=== PATIENT | male | born 1940 | race Caucasian/White ===

== ENCOUNTER 2017-11-12 08:29 | Inpatient (IN) ==
[2017-11-12] MEDS ORDERED: IPRATROPIUM/ALBUTEROL 3 ML AMPUL.NEB NEB ONE ×2 (08:47→11:23)
--- NOTE | 2017-11-12 08:51 | Emergency Department Note ---
SOB HPI - General Chief Complaint: Shortness of Breath/Dyspnea Stated Complaint: Shortness of breath Time Seen by Provider: 11/12/17 08:42 Source: patient Mode of arrival: ambulatory Limitations: no limitations - History of Present Illness Mr. Merritt is a resident of [facility] and he was found to be significantly more short of breath this morning and transferred to the emergency room because of this via ambulance. He reports a 3-4 day history of increasing shortness of breath with some worsening cough. He is also been wheezing and producing white gooey phlegm. He denies chest pains or palpitations. He has had a few chills but no fevers or night sweats. He has a previous history of pneumonia. He denies COPD or asthma. REVIEW OF SYSTEMS: No chest pains or palpitations. Some nausea. Admits to weakness. As well as some dizziness last few days. Denies anxiety and depression. - Related Data Home Medications Medication Instructions Recorded Confirmed Allopurinol [Zylopriim] 300 mg PO DAILY 04/09/15 04/09/15 Aspirin [Lite Coat Aspirin] 325 mg PO PRN PRN 04/09/15 04/09/15 Finasteride [Proscar] 5 mg PO DAILY 04/09/15 04/09/15 Insulin Glargine,Hum.rec.anlog 100 unit SQ PRN PRN 04/09/15 04/09/15 [Lantus Solostar] Levothyroxine [Synthroid] 150 mcg PO DAILY 04/09/15 04/09/15 Nitroglycerin [Nitrostat] 0.4 mg SL Q5M PRN 04/09/15 04/09/15 [place]-3 Fatty Acids/Fish Oil [Fish 1 capsule PO DAILY 04/09/15 04/09/15 Oil 1,000 mg Softgel] Tamsulosin [Flomax] 0.4 mg PO ONCE 04/09/15 04/09/15 Torsemide [Demadex] 20 mg PO DAILY 04/09/15 04/09/15 Vitamin D3 1,000 unit PO DAILY 04/09/15 04/09/15 amLODIPine [Norvasc] 5 mg PO DAILY 04/09/15 04/09/15 glipiZIDE [Glucotrol] 10 mg PO BID 04/09/15 04/09/15 Previous Rx's Medication Instructions Recorded Triamcinolone Acetonide 1 applic TP TID PRN #30 gm 04/09/15 Allergies Allergy/AdvReac Type Severity Reaction Status Date / Time No Known Drug Allergies Allergy Verified 04/09/15 11:52 Past Medical History - Past Medical History Medical history: Reports: CVA, DM, hypertension, myocardial infarction (5), other (pneumonia. DENIES asthma.) Psychiatric history: Denies: anxiety, depression - Social History smoking status: Current every day smoker Alcohol use: Reports: None Drug use: Reports: none. Denies: marijuana Physical Exam Limitations: no limitations General appearance: alert, in distress (With 2-3 word dyspnea.) Head: atraumatic, normocephalic Eye: Present: EOMI ENT: mucous membranes dry Respiratory: Present: respiratory distress (2-3 word dyspnea with a rate of 33 sometimes mildly higher.), wheezes (With crackles throughout all lung sharma.), accessory muscle use, prolonged expiratory phase. Absent: stridor Cardiovascular: Present: regular rate, normal rhythm. Absent: systolic murmur, diastolic murmur Abdominal: Present: soft. Absent: distention, tenderness, guarding, rebound, rigidity, organomegaly, mass Extremities: Absent: pedal edema, pretibial edema, calf tenderness Neurological: Present: alert Psychiatric: Present: flat affect Skin: Present: warm, dry Course Vital Signs Temperature 99.2 F H 11/12/17 08:29 Pulse Rate 110 H 11/12/17 08:29 Respiratory Rate 24 H 11/12/17 08:29 Blood Pressure 125/66 11/12/17 08:29 Pulse Oximetry (%) 93 11/12/17 08:29 Temperature 99.2 F H 11/12/17 08:29 Pulse Rate 103 H 11/12/17 08:46 Respiratory Rate 32 H 11/12/17 08:46 Blood Pressure 118/58 11/12/17 08:46 Pulse Oximetry (%) 93 11/12/17 08:46 Shortness of Breath/Dyspnea - [facility] Narrative Medical decision making narrative: Significant respiratory distress. Was just discharged from the ER at [facility] this morning and sent back to the ER today here. He is due for dialysis today. He has significant anemia. He has significant crackles throughout all lung sharma. Has a coronary artery disease history with 5 MIs he reports. Significant workup initiated. Patient will be followed by next shift physician Dr. nichols. - Lab Data Result diagrams: 11/12/17 08:40 11/12/17 08:40 Disposition Pt seen by DELIVERY COORDINATOR/PA only: No Disposition: Still a Patient Referrals: Shen Elias MD [Primary Care Provider] -
[2017-11-12 09:31] LABS: Basophils # (Auto) 0 K/mcL (0.0-0.3); Basophils % (Auto) 0.2 % (0.0-2.0); Eosinophils # (Auto) 0.1 K/mcL (0.0-0.7); Eosinophils % (Auto) 0.4 % (0.0-7.0); Granulocytes % (Auto) 81.5 % (38.0-78.0); Lymphocytes % (Auto) 8.2 % (15.5-49.0); Mean Cell Volume 95.6 fL (80.0-100.0); Mean Corpuscular HGB Conc 33.3 g/dL (31.0-36.0); Mean Corpuscular Hemoglobin 31.8 pg (26.0-34.0); Monocytes # (Auto) 1.2 K/mcL (0.1-0.9); Monocytes % (Auto) 9.7 % (1.0-12.0); Platelet Count 182 K/mcL (140-440); RBC 2.63 M/mcL (4.50-5.90); Red Cell Distribution Width 17.2 % (11.5-14.5)
[2017-11-12 09:52] LABS: ALT/SGPT 15 U/l (0-40); Albumin 3.1 gm/dL (3.2-5.2); Alkaline Phosphatase 75 U/L (39-117); Blood Urea Nitrogen 30 mg/dl (8-23)
--- NOTE | 2017-11-12 10:16 | XRay Report ---
CLINICAL INFORMATION: Dyspnea COMPARISON: None. FINDINGS: Right IJ double-lumen catheter tip overlies the SVC azygos junction. The heart is borderline enlarged. Mediastinum and pulmonary vessels are normal. Moderate bibasilar infiltrates and small bilateral pleural effusions are appreciated. IMPRESSION: Moderate bibasilar infiltrates and small effusions. Suspect aspiration. Borderline cardiomegaly, but no evidence CHF Interpreted and Authenticated by: Dre Marsh 11/12/17
[2017-11-12 11:30] LABS: proBNP > 70000.0 pg/ml (0-450)
[2017-11-12] MEDS ORDERED: methylPREDNISolone SOD SUCC 125 MG/2 ML VIAL IV ONE (11:33)
[2017-11-12] MEDS ORDERED: FUROSEMIDE 100 MG/10 ML VIAL IV ONE (11:40)
--- NOTE | 2017-11-12 12:23 | Emergency Department Note ---
SOB HPI - General Chief Complaint: Shortness of Breath/Dyspnea Stated Complaint: Shortness of breath Time Seen by Provider: 11/12/17 08:42 Source: patient Mode of arrival: ambulatory Limitations: no limitations - Related Data Home Medications Medication Instructions Recorded Confirmed Allopurinol [Zylopriim] 300 mg PO DAILY 04/09/15 04/09/15 Aspirin [Lite Coat Aspirin] 325 mg PO PRN PRN 04/09/15 04/09/15 Finasteride [Proscar] 5 mg PO DAILY 04/09/15 04/09/15 Insulin Glargine,Hum.rec.anlog 100 unit SQ PRN PRN 04/09/15 04/09/15 [Lantus Solostar] Levothyroxine [Synthroid] 150 mcg PO DAILY 04/09/15 04/09/15 Nitroglycerin [Nitrostat] 0.4 mg SL Q5M PRN 04/09/15 04/09/15 [employer]-3 Fatty Acids/Fish Oil [Fish 1 capsule PO DAILY 04/09/15 04/09/15 Oil 1,000 mg Softgel] Tamsulosin [Flomax] 0.4 mg PO ONCE 04/09/15 04/09/15 Torsemide [Demadex] 20 mg PO DAILY 04/09/15 04/09/15 Vitamin D3 1,000 unit PO DAILY 04/09/15 04/09/15 amLODIPine [Norvasc] 5 mg PO DAILY 04/09/15 04/09/15 glipiZIDE [Glucotrol] 10 mg PO BID 04/09/15 04/09/15 Previous Rx's Medication Instructions Recorded Triamcinolone Acetonide 1 applic TP TID PRN #30 gm 04/09/15 Allergies Allergy/AdvReac Type Severity Reaction Status Date / Time No Known Drug Allergies Allergy Verified 04/09/15 11:52 Past Medical History - Past Medical History Medical history: Reports: CVA, DM, hypertension, myocardial infarction (5), other (pneumonia. DENIES asthma.) Psychiatric history: Denies: anxiety, depression - Social History smoking status: Current every day smoker Alcohol use: Reports: None Drug use: Reports: none. Denies: marijuana Physical Exam Limitations: no limitations General appearance: alert, in distress (With 2-3 word dyspnea.) Course Vital Signs Temperature 99.2 F H 11/12/17 08:29 Pulse Rate 110 H 11/12/17 08:29 Respiratory Rate 24 H 11/12/17 08:29 Blood Pressure 125/66 11/12/17 08:29 Pulse Oximetry (%) 93 11/12/17 08:29 Temperature 99.2 F H 11/12/17 08:29 Pulse Rate 136 H 11/12/17 12:03 Respiratory Rate 34 H 11/12/17 12:03 Blood Pressure 111/60 11/12/17 11:19 Pulse Oximetry (%) 98 11/12/17 12:03 Shortness of Breath/Dyspnea - MDM Narrative Medical decision making narrative: This patient has impending respiratory failure possibly due to aspiration and infection. His chest x-ray is read as not showing heart failure but showing possible aspiration. His BNP was over 70,000 however. He does have a history of COPD and we did give him a DuoNeb treatment and Solu-Medrol. Blood gas shows a pH of 7.45P O2 of 48 a PCO2 of 44. At that point BiPAP was instituted and the patient was much improved on BiPAP. His troponin was 1.[address] Guzmán asked me to discuss this with the apprenticeship consultant. He had a stent one week ago. The apprenticeship consultant feels like this is an acceptable troponin level most likely on its way down. He is happy to have the patient stay here at our ICU. Discussed the case with Dr. Kiser and the patient will be admitted to the ICU here and receive dialysis today today per Dr. Guzmán's orders. - Lab Data Lab results reviewed: Yes I reviewed the patient's lab results. Result diagrams: 11/12/17 08:40 11/12/17 08:40 Lab Results 11/12/17 11/12/17 11/12/17 Range/Units 08:40 08:40 08:40 WBC 12.6 H (4.5-11.0) K/mcL RBC 2.63 L (4.50-5.90) M/mcL Hgb 8.4 L (13.5-16.5) g/dL Hct 25.2 L (41.0-55.0) % MCV 95.6 (80.0-100.0) fL MCH 31.8 (26.0-34.0) pg MCHC 33.3 (31.0-36.0) g/dL RDW 17.2 H (11.5-14.5) % Plt Count 182 (140-440) K/mcL MPV 10.5 H (7.4-10.4) fL Gran % 81.5 H (38.0-78.0) % Lymph % (Auto) 8.2 L (15.5-49.0) % [place] % (Auto) 9.7 (1.0-12.0) % Eos % (Auto) 0.4 (0.0-7.0) % Baso % (Auto) 0.2 (0.0-2.0) % Gran # 10.3 H (1.8-8.0) K/mcL Lymph # (Auto) 1.0 L (1.5-4.8) K/mcL [place] # (Auto) 1.2 H (0.1-0.9) K/mcL Eos # (Auto) 0.1 (0.0-0.7) K/mcL Baso # (Auto) 0 (0.0-0.3) K/mcL VBG Lactic Acid 1.9 (0.5-2.2) mmol/L Sodium 137 (133-145) mmol/L Potassium 4.7 (3.3-5.1) mmol/L Chloride 98 (96-108) mmol/L Carbon Dioxide 26 (22-30) mmol/L Anion Gap 13.0 (8-16) BUN 30 H (8-23) mg/dl Creatinine 5.8 H* (0.7-1.2) mg/dl GFR Calculation 9 Glucose 64 L (70-105) mg/dL Calcium 8.8 (8.6-10.4) mg/dl Total Bilirubin 0.2 (0.0-1.0) mg/dL AST 30 (0-37) U/l ALT 15 (0-40) U/l Alkaline Phosphatase 75 (39-117) U/L Troponin T (0-0.03) ng/ml NT-Pro-B Natriuret Pep (0-450) pg/ml Total Protein 6.3 (5.9-8.4) gm/dL Albumin 3.1 L (3.2-5.2) gm/dL Globulin 3.2 (2.2-3.7) gm/dL Albumin/Globulin Ratio 1.0 (1.0-2.3) Procalcitonin (<0.10) ng/mL 11/12/17 11/12/17 11/12/17 Range/Units 08:40 08:40 10:18 WBC (4.5-11.0) K/mcL RBC (4.50-5.90) M/mcL Hgb (13.5-16.5) g/dL Hct (41.0-55.0) % MCV (80.0-100.0) fL MCH (26.0-34.0) pg MCHC (31.0-36.0) g/dL RDW (11.5-14.5) % Plt Count (140-440) K/mcL MPV (7.4-10.4) fL Gran % (38.0-78.0) % Lymph % (Auto) (15.5-49.0) % [place] % (Auto) (1.0-12.0) % Eos % (Auto) (0.0-7.0) % Baso % (Auto) (0.0-2.0) % Gran # (1.8-8.0) K/mcL Lymph # (Auto) (1.5-4.8) K/mcL [place] # (Auto) (0.1-0.9) K/mcL Eos # (Auto) (0.0-0.7) K/mcL Baso # (Auto) (0.0-0.3) K/mcL VBG Lactic Acid (0.5-2.2) mmol/L Sodium (133-145) mmol/L Potassium (3.3-5.1) mmol/L Chloride (96-108) mmol/L Carbon Dioxide (22-30) mmol/L Anion Gap (8-16) BUN (8-23) mg/dl Creatinine (0.7-1.2) mg/dl GFR Calculation Glucose (70-105) mg/dL Calcium (8.6-10.4) mg/dl Total Bilirubin (0.0-1.0) mg/dL AST (0-37) U/l ALT (0-40) U/l Alkaline Phosphatase (39-117) U/L Troponin T 1.17 H* (0-0.03) ng/ml NT-Pro-B Natriuret Pep > 63230.0 H (0-450) pg/ml Total Protein (5.9-8.4) gm/dL Albumin (3.2-5.2) gm/dL Globulin (2.2-3.7) gm/dL Albumin/Globulin Ratio (1.0-2.3) Procalcitonin 1.05 (<0.10) ng/mL - Radiology Data Radiology results reviewed: Yes I reviewed the patient's radiology results. Disposition Pt seen by SLOT KEY PERSON/PA only: No Clinical Impression: Acute exacerbation of chronic obstructive airways disease, Community acquired pneumonia Disposition: Xfer As Inpt ([facility]) Condition: Critical Referrals: Shen Elias MD [Primary Care Provider] - Time of Disposition: 12:22
[2017-11-12] MEDS ORDERED: ACETAMINOPHEN 325 MG TABLET PO ONE (12:33)
--- NOTE | 2017-11-12 13:20 | Internal Med History&Physical ---
Medical - H&P: HPI Patient information: Note initiated : 11/12/17 at 1:13 pm Service Date, if different from initiated Date: [] Patient: Stefan Merritt 77 y/o M admitted on for Shortness of breath. Chief Complaint: [] History of present illness: Mr. Merritt is a 77 year old Male with multiple medical issues, recently discharged from [facility] presents to the ER today for complaints of shortness of breath x 1 day. Pt is presently very short of breath, on bipap and is able to provide only limited history, most history from chart review. The patient was recently in [facility], had a protracted course, NSTEMI , s/p Stent, ESRd on HD, had PD cath which developed infection and he had peritonitis, He had Upper GI Bleed, duodenal ulcer, Small bowel obstruction and aspiration pneumonia. The patient was stabilized and discharged I believe on the to [facility]. The patient became short of breath this AM as per the patient, he was taken to [facility] where they did an x ray and noted he has pna, started him on rocephin? he was already on cipro? Patient was sent back to SNf, where he was tachypneic and he was then sent to our ER for further evaluation. In our hospital the patient is febrile temp 101, Tachycardic with HR 136, bp normal but on the lower end, oxygen sat was low, significant tachypenia. X ray shows nimco basilar pneumonia, Right IJ EKG sinus tachy, left axis, qs in ant leads falttened t waves in lateral leads, labs show leucocytosis 12.6, procalcitonin 1.05, hb 8.4, plat 182, Na 137, K 3.7, bicat 2.6, creat 5.8, glucose 64 lactic acid 2.1 on abg Trop elevated at 1.17, it was 5.4 on 10/26/17 Cardiology was consulted on phone and Dr Lockhart at [facility] , who did not feel pt needs to be at [facility] or needed cardiolgoy intervention. (as per er provider) Patient is very tachypneic but saturating well after initiation of bipap, Dr Guzmán notified for need for dialysis, patient being admitted to the ICU for further management. Review of systems: patient admits to being short of breath but denies any chest pain, or any other complaints, limited ros due to mental status/ respiratory status Medical - H&P: PMH Medical history: Medical History Atopic dermatitis (Acute) cad s/p LAD stent 2017 GI bleed duodenal ulcer HTN HLD ESRD ON HD Perotitiitis copd DM Obesity h/o small bowel obstruction. Pertinent family history: Includes father with myeloma. He has 8 children and 6 of them have diabetes. Mother is in her high 90s. Also paternal uncle with skin cancer. 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 Medical - H&P: Meds Home Medications Medication Instructions Recorded Confirmed Type Allopurinol [Zylopriim] 300 mg PO DAILY 04/09/15 04/09/15 History Aspirin [Lite Coat Aspirin] 325 mg PO PRN PRN 04/09/15 04/09/15 History Finasteride [Proscar] 5 mg PO DAILY 04/09/15 04/09/15 History Insulin Glargine,Hum.rec.anlog 100 unit SQ PRN PRN 04/09/15 04/09/15 History [Lantus Solostar] Levothyroxine [Synthroid] 150 mcg PO DAILY 04/09/15 04/09/15 History Nitroglycerin [Nitrostat] 0.4 mg SL Q5M PRN 04/09/15 04/09/15 History [place]-3 Fatty Acids/Fish Oil [Fish 1 capsule PO DAILY 04/09/15 04/09/15 History Oil 1,000 mg Softgel] Tamsulosin [Flomax] 0.4 mg PO ONCE 04/09/15 04/09/15 History Torsemide [Demadex] 20 mg PO DAILY 04/09/15 04/09/15 History Triamcinolone Acetonide 1 applic TP TID PRN #30 gm 04/09/15 Rx Vitamin D3 1,000 unit PO DAILY 04/09/15 04/09/15 History amLODIPine [Norvasc] 5 mg PO DAILY 04/09/15 04/09/15 History glipiZIDE [Glucotrol] 10 mg PO BID 04/09/15 04/09/15 History Allergies Allergy/AdvReac Type Severity Reaction Status Date / Time No Known Drug Allergies Allergy Verified 04/09/15 11:52 Medical - H&P: Exam - Constitutional Vitals: Temp Pulse Resp BP Pulse Ox 101.2 F H 106 H 33 H 107/55 97 11/12/17 12:39 11/12/17 12:55 11/12/17 12:55 11/12/17 12:46 11/12/17 12:55 Exam: GENERAL: The patient is a well-developed, well-nourished in moderate to severe distress, VITAL SIGNS: Reviewed and as noted elsewhere. HEENT: Head is normocephalic and atraumatic. Extraocular muscles are intact. Pupils are equal, round, and reactive to light. Nares appeared normal. Mouth appears any without lesions. Mucous membranes are moist. NECK: Normal to inspection, Supple, No lymphadenopathy or thyromegaly. LUNGS: Air entry equal on both sides, nimco proloned exp phase, bilbasilar crackles. HEART: Regular tachycardic rate, regular rhythm, s1,s2 heard, no gross murmur ( in the ER on bipap) ABDOMEN: Soft, nontender, and nondistended. Positive but hypoactive bowel sounds. No hepatosplenomegaly was noted. EXTREMITIES: No cyanosis, clubbing, rash, lesions, edema + NEUROLOGIC: Cranial nerves II through XII are grossly intact. Motor and Sensory System Grossly Intact PSYCHIATRIC: Normal affect, Normal Mood. Appropriate Behavior. SKIN: No ulceration or wounds noted, No jaundice, No rash noted. Medical - H&P: Reslt - Labs CBC & Chem 7: 11/12/17 08:40 11/12/17 08:40 Labs: Short CBC 11/12/17 Range/Units 08:40 WBC 12.6 H (4.5-11.0) K/mcL Hgb 8.4 L (13.5-16.5) g/dL Hct 25.2 L (41.0-55.0) % Plt Count 182 (140-440) K/mcL BMP 11/12/17 08:40 Sodium 137 Potassium 4.7 Chloride 98 Carbon Dioxide 26 BUN 30 H Creatinine 5.8 H* Glucose 64 L Calcium 8.8 Cardiac Enzymes 11/12/17 Range/Units 08:40 Troponin T 1.17 H* (0-0.03) ng/ml Liver Function 11/12/17 Range/Units 08:40 Total Bilirubin 0.2 (0.0-1.0) mg/dL AST 30 (0-37) U/l ALT 15 (0-40) U/l Alkaline Phosphatase 75 (39-117) U/L Albumin 3.1 L (3.2-5.2) gm/dL Medical - H&P: A/P - Narrative A/P Narrative: A/P Acute Respiratory Failuire/ Hypoxic Acute copd exacerbation Health care associated pneumonia/ Aspiration pneumonia H/o CAD s/p Recent Stent placement at [facility] Acute systolic and Diastolic Heart failure ESRD on Hemodialysis h/o Acute GI bleed this month h/o Recent small bowel obstruction h/o recent peritonitis DM HTN HLD Plan Admit to PCU Nephrology c onsulted for dialysis BIPAP for now, if resp condition does not improve will intubate BP Stable so far, consider pressor for bp support IV vancomycin and Zosyn, cultures sent, await results IV PPI BID for now given h/o GIB Verify med list, resume meds as appropriate Patient is critically ill, spent > 60 mins stablizing pt, reviewing chart, care coordinatino, lab, abg and x ray review. non invasive vent management
[2017-11-12] MEDS ORDERED: ONDANSETRON 4 MG/2 ML VIAL IV PRN (13:37)
[2017-11-12] MEDS ORDERED: ACETAMINOPHEN 325 MG TABLET PO PRN (13:37)
[2017-11-12] MEDS ORDERED: DEXTROSE 31 GM ORAL.SUSP PO PRN (13:37)
[2017-11-12] MEDS ORDERED: DEXTROSE 50% 50 ML VIAL IV PRN (13:37)
[2017-11-12] MEDS ORDERED: VANCOMYCIN PER PHARMACY IV SCH (13:43)
[2017-11-12] MEDS: 0.9 % SODIUM CHLORIDE 10 ML SYRINGE IV SCH ×2 (13:45→22:03)
--- NOTE | 2017-11-12 15:41 | Consultation ---
DATE OF CONSULTATION: 11/12/2017 REFERRING PHYSICIAN: Tiffany Kiser M.D. REASON FOR CONSULTATION: End-stage renal disease and volume overload with shortness of breath and possible pneumonia. HISTORY OF PRESENT ILLNESS: The patient is a 77-year-old male with past medical history significant for end-stage renal disease on hemodialysis. He was recently hospitalized at [facility] where he was hospitalized with a non-STEMI and at that time he had a cardiac catheterization with stent placement. He was on peritoneal dialysis at that time and he had a protracted course of peritonitis for which reason the peritoneal dialysis catheter was removed, and patient was started on hemodialysis with a temporary dialysis catheter. During the hospitalization, he had small-bowel obstruction, a GI bleed that was secondary to duodenal ulcer. He also had aspiration pneumonitis. He came into the emergency room at [facility] this morning with shortness of breath and an x-ray showed possible pneumonia. He was given Rocephin and apparently discharged back to the group home facility. He presented to [facility] ER with progressive shortness of breath. He was found to be tachypneic, and his temperature was 101, tachycardic with a heart rate of 136, and his saturations were low. For that reason, he was started on BiPAP and hospitalized to the intensive care unit. A chest x-ray showed possible bilateral pneumonia and small pleural effusions as well. PAST MEDICAL HISTORY: Significant for: 1. End-stage renal disease. He used to be on peritoneal dialysis and has a switched over to hemodialysis last week because of persistent peritonitis. 2. Coronary artery disease with several stents and the last one was in 10/2017. 3. History of GI bleed secondary to duodenal ulcer. 4. COPD. 5. Diabetes. 6. Obesity. 7. Small-bowel obstruction. FAMILY HISTORY: Includes multiple myeloma in his father. No history of kidney problems. SOCIAL HISTORY: The patient had a 50-pack history of smoking. 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 MEDICATIONS ON ADMISSION: 1. Allopurinol 300 mg daily. 2. Aspirin 325 mg once daily. 3. Proscar 5 mg daily. 4. Lantus insulin. 5. Levothyroxine 150 mcg daily. 6. Nitroglycerin sublingual 0.4 mg daily. 7. [place]-3 fatty acids one capsule once daily. 8. Flomax 0.4 mg daily. 9. Torsemide 20 mg daily. 10. Triamcinolone one three times daily. 11. Vitamin D3 1000 units daily. 12. Amlodipine 5 mg daily. 13. Glipizide 10 mg twice daily. REVIEW OF SYSTEMS: The patient is currently on a facemask with BiPAP at 50% FiO2. PHYSICAL EXAMINATION: VITAL SIGNS: He is in mild respiratory distress with BiPAP at 50% FiO2. Heart rate is 106, temperature 101.2 with a blood pressure of 107/55. HEENT: NC/AT. Pupils are reactive to light. NECK: Supple. He does have about 10 cm of jugular venous distention. No lymphadenopathy. No thyromegaly. LUNGS: Decreased air entry bilaterally. Rales heard in both bases. CARDIAC: S1, S2 heard. No S3, S4. Tachycardic. ABDOMEN: Soft, nontender. No organomegaly. Positive bowel sounds. No mass. No rebound. EXTREMITIES: Did not show any evidence of edema. LABORATORY DATA: White count is 12.6 with a hemoglobin of 8.4 and a platelet count of 182. Sodium 137, potassium 4.7, chloride of 98, CO2 of 26, BUN of 30 with a creatinine of 5.8 with a glucose of 64. His troponin was 1.17. His proBNP was more than 70,000. Albumin 3.1. Chest x-ray reported moderate bibasilar infiltrates with small effusions and borderline cardiomegaly without evidence of congestive heart failure. ASSESSMENT AND PLAN: 1. Acute respiratory failure secondary to possible pneumonia but a component of volume overload is a possibility. He is on BiPAP. He did have mild pleural effusions bilaterally. I will go ahead and initiate him on hemodialysis. We will dialyze him for 3-1/2 hours. We will attempt to remove 5 liters of fluid, but I think it is going to be difficult. We will ultrafilter him for an hour with 2 liters and then 2.5 hours with 3 liters. He will be in a potassium of 2.0. 2. ESRD. He is scheduled for dialysis. 3. Peritonitis. His catheter has been removed and the tip and the cultures have been negative so far. He is currently on vancomycin and Zosyn. I think that will cover the peritonitis as well. 4. History of peptic ulcer bleed. He is to be continued on Protonix. 5. Coronary artery disease. We will reassess the patient tomorrow with a chest x-ray and see if he needs further dialysis ___ ___ . Thank you, Dr. Kiser for referring this patient for consultation. I will follow with you. PAZ:gerardo Job ID: [id number] Doc ID: [id number] Virgil Guzmán MD
[2017-11-12] MEDS: IPRATROPIUM/ALBUTEROL 3 ML AMPUL.NEB NEB SCH ×3 (15:45→23:30)
[2017-11-12] MEDS: methylPREDNISolone SOD SUCC 125 MG/2 ML VIAL IV SCH ×2 (16:19→22:03)
[2017-11-12] MEDS ORDERED: 0.9 % SODIUM CHLORIDE 250 ML IV ONE (17:23)
[2017-11-12] MEDS ORDERED: 0.9 % SODIUM CHLORIDE 1,000 ML IV ONE (17:40)
[2017-11-12] MEDS: INSULIN LISPRO 1 UNIT/0.01 ML UNIT SQ SCH ×2 (18:34→22:12)
[2017-11-12] MEDS: PANTOPRAZOLE 40 MG VIAL IV SCH (18:44)
[2017-11-12] MEDS: 0.9 % SODIUM CHLORIDE 1,000 ML IV SCH (19:23)
[2017-11-12] MEDS ORDERED: AMIODARONE 150 MG in DEXTROSE 5% IN WATER 50 ML IV ONE (19:47)
[2017-11-12] MEDS ORDERED: AMIODARONE 150 MG/3 ML VIAL IV ONE (19:52)
[2017-11-12] MEDS: PIPERACILLIN SODIUM/TAZOBACTAM 2.25 GM in DEXTROSE 5% IN WATER 50 ML IV SCH (19:53)
[2017-11-12] MEDS ORDERED: VANCOMYCIN 1,500 MG in 0.9 % SODIUM CHLORIDE 500 ML IV ONE (20:00)
[2017-11-12] MEDS ORDERED: AMIODARONE 360 MG/200 ML BAG IV ONE (20:17)
[2017-11-12] MEDS: HEPARIN 5,000 UNIT/ML VIAL SQ SCH (22:03)
[2017-11-12] MEDS: AMIODARONE 360 MG in PREMIX 1 BAG IV ONE ×2 (22:43→22:59)
[2017-11-13] MEDS: AMIODARONE 360 MG in PREMIX 1 BAG IV SCH ×2 (03:09→15:14)
[2017-11-13] MEDS: IPRATROPIUM/ALBUTEROL 3 ML AMPUL.NEB NEB SCH ×6 (05:09→23:17)
[2017-11-13 05:44] LABS: Basophils # (Auto) 0 K/mcL (0.0-0.3); Basophils % (Auto) 0.2 % (0.0-2.0); Eosinophils # (Auto) 0 K/mcL (0.0-0.7); Eosinophils % (Auto) 0 % (0.0-7.0); Granulocytes % (Auto) 86.9 % (38.0-78.0); Lymphocytes # (Auto) 0.7 K/mcL (1.5-4.8); Mean Cell Volume 98.1 fL (80.0-100.0); Mean Corpuscular HGB Conc 32.7 g/dL (31.0-36.0); Mean Corpuscular Hemoglobin 32.1 pg (26.0-34.0); Monocytes # (Auto) 0.5 K/mcL (0.1-0.9); Monocytes % (Auto) 4.9 % (1.0-12.0); Platelet Count 155 K/mcL (140-440); RBC 2.44 M/mcL (4.50-5.90); Red Cell Distribution Width 17.4 % (11.5-14.5)
[2017-11-13 05:52] LABS: ALT/SGPT 14 U/l (0-40); Albumin 3.2 gm/dL (3.2-5.2); Alkaline Phosphatase 70 U/L (39-117); Bilirubin,Direct < 0.2 mg/dL (0.0-0.3); Blood Urea Nitrogen 27 mg/dl (8-23); Gamma Glutamyl Transpeptidase 35 U/L (8-61); Uric Acid 3.2 mg/dL (2.5-8.0)
--- NOTE | 2017-11-13 05:57 | XRay Report ---
CLINICAL INFORMATION: PICC placement COMPARISON: 11/12/2017 FINDINGS: Left PICC line tip overlies the brachycephalic SVC junction. Right IJ central catheter tip overlies the SVC /azygos junction. Cardiomediastinal silhouette and pulmonary vessels are normal for technique. Bibasilar patchy infiltrates have improved considerably since film earlier today and are now small. Small bilateral pleural effusions noted IMPRESSION: 1. Moderate improvement in patchy bibasilar infiltrates - now small 2. 3. PICC line tip overlying the SVC brachycephalic junction Interpreted and Authenticated by: Dre Marsh 11/13/17
[2017-11-13] MEDS: methylPREDNISolone SOD SUCC 125 MG/2 ML VIAL IV SCH ×3 (05:59→21:29)
[2017-11-13] MEDS: 0.9 % SODIUM CHLORIDE 10 ML SYRINGE IV SCH ×5 (05:59→21:29)
[2017-11-13] MEDS: PANTOPRAZOLE 40 MG VIAL IV SCH ×2 (08:25→17:45)
[2017-11-13] MEDS: 0.9 % SODIUM CHLORIDE 10 ML SYRINGE IV PRN ×3 (08:25→17:45)
[2017-11-13] MEDS: INSULIN LISPRO 1 UNIT/0.01 ML UNIT SQ SCH ×4 (09:43→21:32)
[2017-11-13] MEDS: PIPERACILLIN SODIUM/TAZOBACTAM 2.25 GM in DEXTROSE 5% IN WATER 50 ML IV SCH ×2 (09:44→21:30)
--- NOTE | 2017-11-13 10:08 | XRay Report ---
CLINICAL INFORMATION: Pneumonia COMPARISON: 11/12/2017 FINDINGS: Lines and tubes in stable satisfactory position. The heart is mildly enlarged - slightly increased. Mediastinum is unremarkable. Pulmonary vessels are mildly distended and there is mild interstitial edema throughout both lungs. Minimal bibasilar infiltrates have improved. Small bibasilar pleural effusions progressed IMPRESSION: Moderate CHF - new Slight improvement in small bibasilar infiltrates Interpreted and Authenticated by: Dre Marsh 11/13/17
[2017-11-13] MEDS ORDERED: FUROSEMIDE 100 MG/10 ML VIAL IV ONE (10:18)
[2017-11-13] MEDS: HEPARIN 5,000 UNIT/ML VIAL SQ SCH ×2 (10:33→21:30)
--- NOTE | 2017-11-13 13:37 | Internal Med Progress Note ---
Medical - PN: Subj Patient information: Note initiated : 11/13/17 at 1:31 pm Service Date, if different from initiated Date: [] Patient: Stefan Merritt 77 y/o M admitted on 11/12/17 for Shortness of breath. Chief Complaint: [] Interval history: Mr. Merritt is a 77 year old Male with multiple medical issues, recently discharged from [facility] presents to the ER today for complaints of shortness of breath x 1 day. Pt is presently very short of breath, on bipap and is able to provide only limited history, most history from chart review. The patient was recently in [facility], had a protracted course, NSTEMI , s/p Stent, ESRd on HD, had PD cath which developed infection and he had peritonitis, He had Upper GI Bleed, duodenal ulcer, Small bowel obstruction and aspiration pneumonia. The patient was stabilized and discharged I believe on the to [facility]. The patient became short of breath this AM as per the patient, he was taken to [facility] where they did an x ray and noted he has pna, started him on rocephin? he was already on cipro? Patient was sent back to SNf, where he was tachypneic and he was then sent to our ER for further evaluation. In our hospital the patient is febrile temp 101, Tachycardic with HR 136, bp normal but on the lower end, oxygen sat was low, significant tachypenia. X ray shows nimco basilar pneumonia, Right IJ EKG sinus tachy, left axis, qs in ant leads falttened t waves in lateral leads, labs show leucocytosis 12.6, procalcitonin 1.05, hb 8.4, plat 182, Na 137, K 3.7, bicat 2.6, creat 5.8, glucose 64 lactic acid 2.1 on abg Trop elevated at 1.17, it was 5.4 on 10/26/17 Cardiology was consulted on phone and Dr Lockhart at [facility] , who did not feel pt needs to be at [facility] or needed cardiolgoy intervention. (as per er provider) Patient is very tachypneic but saturating well after initiation of bipap, Dr Guzmán notified for need for dialysis, patient being admitted to the ICU for further management. 11/13 Patient seen and examined, on BiPAP tolerating the BiPAP well, mental status is better. He gets hypoxic and short of breath of the BiPAP. Bilateral wheezing present on exam. Chest x-ray done today shows CHF, improved infiltrates. Yesterday during dialysis the patient became hypotensive and therefore we were unable to remove much fluid. [id number] ultrasound showed that the patient had a dilated IVC but was collapsing appropriately with inspiration. Patient also had A. fib with RVR. IV amiodarone given with good rate control. Pertinent ROS: Denies headache, dizziness Denies chest pain, palpitations shortness of breath present. Denies abdominal pain, nausea or vomiting. - Constitutional Vitals: Vital Signs Temp Pulse Resp BP Pulse Ox 98.2 F 88 20 123/73 92 11/13/17 12:00 11/13/17 13:27 11/13/17 13:27 11/13/17 12:00 11/13/17 13:27 Period Temp Pulse Resp BP Sys/Jean Pulse Ox Last 24 Hr 97.8 F-100.6 F 55-146 12-44 66-150/50-108 88-100 Intake and Output 11/12/17 11/13/17 11/13/17 21:59 05:59 13:59 Intake Total 1300 / 1300 500 / 500 50 / 50 Output Total 591 / 591 5 / 5 Balance 709 / 709 495 / 495 50 / 50 Weight 193 lb 4.8 oz 193 lb 4.8 oz Patient Weight 11/14/17 05:59 Weight 193 lb 4.8 oz Intake & Output: Intake & Output 11/12/17 11/13/17 11/13/17 21:59 05:59 13:59 Intake Total 1300 / 1300 500 / 500 50 / 50 Output Total 591 / 591 5 / 5 Balance 709 / 709 495 / 495 50 / 50 Weight 193 lb 4.8 oz 193 lb 4.8 oz Intake: IV 1300 / 1300 500 / 500 50 / 50 Sodium Chloride 0.9% 1,000 ml @ 1000 / 1000 Wide Open IV [facility] Rx#: [id number] Sodium Chloride 0.9% 250 ml @ 250 / 250 Wide Open IV [facility] Rx#: [id number] Zosyn 2.25 gm In Dextrose 5% in 50 / 50 50 / 50 Water 50 ml @ 100 mls/hr IV Q12H [facility] Rx#:[id number] Output: Void Amount 5 / 5 Hemodialysis UF 591 / 591 Exam: Constitutional; Afebrile, cooperative, alert, not in distress. on bipap Eyes- No icterus, , No periorbital swelling Ears- Ext ear normal, hearing normal to conversation. Neck- Midline trachea, supple Respiratory system: Air Entry equal on both sides, nimco exp wheezing, bibasilar crackles, on bipap CVS- Rate rhythm regular, S1,S2 heard, no gallop, no rub. 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 Medical - PN: Obj Da - Labs CBC & Chem 7: 11/13/17 04:00 11/13/17 04:00 Labs: Abnormal Lab Results 11/13/17 11/13/17 11/13/17 04:00 04:00 04:00 WBC RBC 2.44 L Hgb 7.8 L Hct 24.0 L RDW 17.4 H MPV 11.8 H Gran % 86.9 H Lymph % (Auto) 8.0 L Gran # 8.1 H Lymph # (Auto) 0.7 L [place] # (Auto) PT 16.2 H INR 1.3 H D-Dimer Chloride 95 L BUN 27 H Creatinine 5.0 H Glucose 213 H Calcium 8.5 L Lactate Dehydrogenase 267 H Troponin T NT-Pro-B Natriuret Pep Albumin 11/12/17 11/12/17 11/12/17 11:37 10:18 08:40 WBC RBC Hgb Hct RDW MPV Gran % Lymph % (Auto) Gran # Lymph # (Auto) [place] # (Auto) PT INR D-Dimer 1.92 H Chloride BUN Creatinine Glucose Calcium Lactate Dehydrogenase Troponin T 1.17 H* NT-Pro-B Natriuret Pep > 40310.0 H Albumin 11/12/17 11/12/17 08:40 08:40 WBC 12.6 H RBC 2.63 L Hgb 8.4 L Hct 25.2 L RDW 17.2 H MPV 10.5 H Gran % 81.5 H Lymph % (Auto) 8.2 L Gran # 10.3 H Lymph # (Auto) 1.0 L [place] # (Auto) 1.2 H PT INR D-Dimer Chloride BUN 30 H Creatinine 5.8 H* Glucose 64 L Calcium Lactate Dehydrogenase Troponin T NT-Pro-B Natriuret Pep Albumin 3.1 L Meds: Medications Acetaminophen (Tylenol) 650 mg PO Q4-6HP PRN PRN Reason: PAIN/FEVER > 101 Albuterol/Ipratropium (Duoneb) 3 ml NEB Q4HRT [facility] Last Admin: 11/13/17 11:15 Dose: 3 ml Dextrose (Dextrose 50%) 0 ml IV UD PRN PRN Reason: Hypoglycemia Diagnostic Test (Pha) (Accu-Chek) 1 each FS ACHS [facility] Last Admin: 11/13/17 12:40 Dose: 1 each Glucose (Insta-Glucose) 15 gm PO PRN PRN PRN Reason: Hypoglycemia Heparin Sodium (Porcine) (Heparin) 5,000 unit SQ Q12 [facility] Last Admin: 11/13/17 10:33 Dose: 5,000 unit Heparin Sodium (Porcine) (Heparin Flush) 2 ml IV Q12 [facility] Last Admin: 11/13/17 10:33 Dose: 2 ml Piperacillin Sod/Tazobactam (Sod 2.25 gm/ Dextrose) 50 mls @ 100 mls/hr IV Q12H [facility] Last Infusion: 11/13/17 10:14 Dose: Infused Sodium Chloride (Sodium Chloride 0.9%) 1,000 mls @ 20 mls/hr IV .Q24H [facility] Last Admin: 11/12/17 19:23 Dose: 20 mls/hr AMIODARONE 360 mg/ Premix 200 mls @ 16.66 mls/hr IV .Q12H1M [facility]; 0.5 MG/MIN PRN Reason: Protocol Last Admin: 11/13/17 03:09 Dose: 0.5 mg/min, 16.66 mls/hr Insulin Human Lispro (Humalog) 0 unit SQ [facility] PRN Reason: Protocol Last Admin: 11/13/17 12:58 Dose: 3 unit Methylprednisolone Sodium Succinate (Solu-Medrol) 62.5 mg IV Q8 [facility] Last Admin: 11/13/17 05:59 Dose: 62.5 mg Morphine Sulfate (Morphine) 2 mg IV Q2HP PRN PRN Reason: Pain Last Admin: 11/13/17 10:27 Dose: 2 mg Ondansetron HCl (Zofran) 4 mg IV Q4-6HP PRN PRN Reason: Nausea And Vomiting Pantoprazole Sodium (Protonix) 40 mg IV BIDAC [facility] Last Admin: 11/13/17 08:25 Dose: 40 mg Sodium Chloride (Saline Flush) 10 ml IV Q8 [facility] Last Admin: 11/13/17 05:59 Dose: 10 ml Sodium Chloride (Saline Flush) 10 ml IV UD PRN PRN Reason: FLUSH Last Admin: 11/13/17 08:25 Dose: 10 ml Sodium Chloride (Saline Flush) 10 ml IV Q12 [facility] Last Admin: 11/13/17 09:44 Dose: 10 ml Vancomycin HCl (Vancomycin Per Pharmacy) 1 order IV UD [facility] Medical - PN: A/P - Time Spent With Patient Total time spent is greater than 50% in coordination of care (as documented) at patient's floor/unit and/or counseling patient: - Narrative A/P Narrative: A/P Acute Respiratory Failuire/ Hypoxic- on bipap, continue same, wean off as tolerated Acute copd exacerbation- steroids and duonebs, still wheezing, continue bipap support Health care associated pneumonia/ Aspiration pneumonia- IV vanco and zosyn continue same H/o CAD s/p Recent Stent placement at [facility]- no chest pain, reviewed with cards in ER, no need for cardiology eval Acute systolic and Diastolic Heart failure- low bp precluding removal of fluids , will give lasix IV tody and see if this helps, continue bipap. ESRD on Hemodialysis- HD done yesterday, monitor. h/o Acute GI bleed this month- slight drop in hb , pt on IV PPI h/o Recent small bowel obstruction- no issues at this time. h/o recent peritonitis- on braod spectrum abx DM/HTN/HLD- insulin for ssi, hold bp meds for now, HTN HLD Patient is critically ill, spent > 35 rendering criticalcare reviewing chart, care coordinating, lab, abg and x ray review. non invasive vent management Medical - PN: Qual - VTE Deep Vein Thrombosis/Pulmonary Embolism Present on Admission: No
[2017-11-13] MEDS: 0.9 % SODIUM CHLORIDE 1,000 ML IV SCH (21:30)
[2017-11-14] MEDS: IPRATROPIUM/ALBUTEROL 3 ML AMPUL.NEB NEB SCH ×6 (03:02→22:30)
[2017-11-14 05:19] LABS: Basophils # (Auto) 0 K/mcL (0.0-0.3); Basophils % (Auto) 0.1 % (0.0-2.0); Eosinophils # (Auto) 0 K/mcL (0.0-0.7); Eosinophils % (Auto) 0 % (0.0-7.0); Granulocytes % (Auto) 89.6 % (38.0-78.0); Lymphocytes # (Auto) 0.8 K/mcL (1.5-4.8); Lymphocytes % (Auto) 5.8 % (15.5-49.0); Mean Cell Volume 96.5 fL (80.0-100.0); Mean Corpuscular HGB Conc 32.9 g/dL (31.0-36.0); Mean Corpuscular Hemoglobin 31.7 pg (26.0-34.0); Monocytes # (Auto) 0.6 K/mcL (0.1-0.9); Monocytes % (Auto) 4.5 % (1.0-12.0); Platelet Count 170 K/mcL (140-440); Red Cell Distribution Width 17.3 % (11.5-14.5)
[2017-11-14] MEDS: 0.9 % SODIUM CHLORIDE 10 ML SYRINGE IV SCH ×5 (05:47→21:31)
[2017-11-14] MEDS: methylPREDNISolone SOD SUCC 125 MG/2 ML VIAL IV SCH ×3 (05:47→21:31)
[2017-11-14 06:07] LABS: Blood Urea Nitrogen 51 mg/dl (8-23)
[2017-11-14] MEDS: PANTOPRAZOLE 40 MG VIAL IV SCH ×2 (06:53→16:44)
[2017-11-14] MEDS: 0.9 % SODIUM CHLORIDE 10 ML SYRINGE IV PRN ×6 (06:53→16:44)
[2017-11-14] MEDS ORDERED: AMIODARONE HCL 200 MG TABLET PO SCH (08:00)
[2017-11-14] MEDS: HEPARIN 5,000 UNIT/ML VIAL SQ SCH ×2 (08:17→20:43)
[2017-11-14] MEDS: INSULIN LISPRO 1 UNIT/0.01 ML UNIT SQ SCH ×4 (08:17→20:58)
--- NOTE | 2017-11-14 08:18 | XRay Report ---
CLINICAL INFORMATION: CHF COMPARISON: 11/13/2017 FINDINGS: Central catheter in stable satisfactory position. The heart remains mildly enlarged. Mediastinum is unremarkable. Pulmonary vessels have increased in caliber and are now moderately congested. Moderate interstitial edema throughout both lungs has worsened. Small patchy infiltrate in the right base is also progressed slightly. Small bilateral pleural effusions unchanged. IMPRESSION: Moderate /severe CHF - worsening Small right basilar infiltrate versus atypically distributed edema also progressing Small bilateral pleural effusions Interpreted and Authenticated by: Dre Marsh 11/14/17
[2017-11-14] MEDS: CLOPIDOGREL 75 MG TABLET PO SCH (11:02)
[2017-11-14] MEDS: TAMSULOSIN 0.4 MG CAPSULE PO SCH (11:02)
[2017-11-14] MEDS: LACTOBACILLUS 1 CAPSULE PO SCH ×2 (11:02→20:43)
[2017-11-14] MEDS: METOPROLOL SUCCINATE 25 MG TAB.XL.24H PO SCH (11:06)
[2017-11-14] MEDS: PIPERACILLIN SODIUM/TAZOBACTAM 2.25 GM in DEXTROSE 5% IN WATER 50 ML IV SCH ×2 (11:06→20:43)
[2017-11-14] MEDS: ALLOPURINOL 300 MG TABLET PO SCH (11:06)
[2017-11-14] MEDS: SEVELAMER 800 MG TABLET PO SCH ×2 (12:24→16:51)
--- NOTE | 2017-11-14 12:59 | Internal Med Progress Note ---
Medical - PN: Subj Patient information: Note initiated : 11/14/17 at 12:54 pm Service Date, if different from initiated Date: [] Patient: Stefan Merritt 77 y/o M admitted on 11/12/17 for Shortness of breath. Chief Complaint: [] Interval history: Mr. Merritt is a 77 year old Male with multiple medical issues, recently discharged from [facility] presents to the ER today for complaints of shortness of breath x 1 day. Pt is presently very short of breath, on bipap and is able to provide only limited history, most history from chart review. The patient was recently in [facility], had a protracted course, NSTEMI , s/p Stent, ESRd on HD, had PD cath which developed infection and he had peritonitis, He had Upper GI Bleed, duodenal ulcer, Small bowel obstruction and aspiration pneumonia. The patient was stabilized and discharged I believe on the to [facility]. The patient became short of breath this AM as per the patient, he was taken to [facility] where they did an x ray and noted he has pna, started him on rocephin? he was already on cipro? Patient was sent back to SNf, where he was tachypneic and he was then sent to our ER for further evaluation. In our hospital the patient is febrile temp 101, Tachycardic with HR 136, bp normal but on the lower end, oxygen sat was low, significant tachypenia. X ray shows nimco basilar pneumonia, Right IJ EKG sinus tachy, left axis, qs in ant leads falttened t waves in lateral leads, labs show leucocytosis 12.6, procalcitonin 1.05, hb 8.4, plat 182, Na 137, K 3.7, bicat 2.6, creat 5.8, glucose 64 lactic acid 2.1 on abg Trop elevated at 1.17, it was 5.4 on 10/26/17 Cardiology was consulted on phone and Dr Lockhart at [facility] , who did not feel pt needs to be at [facility] or needed cardiolgoy intervention. (as per er provider) Patient is very tachypneic but saturating well after initiation of bipap, Dr Guzmán notified for need for dialysis, patient being admitted to the ICU for further management. 11/13 Patient seen and examined, on BiPAP tolerating the BiPAP well, mental status is better. He gets hypoxic and short of breath of the BiPAP. Bilateral wheezing present on exam. Chest x-ray done today shows CHF, improved infiltrates. Yesterday during dialysis the patient became hypotensive and therefore we were unable to remove much fluid. [id number] ultrasound showed that the patient had a dilated IVC but was collapsing appropriately with inspiration. Patient also had A. fib with RVR. IV amiodarone given with good rate control. 11/14 Patient seen and examined, overnight remains on BiPAP. This morning is short of breath, bilateral wheezing worse than yesterday. Chest x-ray shows worsening CHF. We had given the patient Lasix yesterday however it seems that it did not help much not make much urine. Contacted nephrology for need for dialysis today. Dialysis team aware and will dialyze the patient today. Patient reports that he has itching with amiodarone, and his baggage checker said not to take it, I reviewed the previous hospital stay and it seems that the patient was on amiodarone during that hospital stay, he also tolerated amiodarone well besides some itching. I am not sure if his itching is truly related to use of amiodarone however I will consider switching this to an alternative agent should the patient desire. Pertinent ROS: Denies headache, dizziness Denies chest pain, palpitations No cough shortness of breath present Denies abdominal pain, nausea or vomiting. - Constitutional Vitals: Vital Signs Temp Pulse Resp BP Pulse Ox 98.1 F 91 H 19 127/115 92 11/14/17 12:01 11/14/17 12:01 11/14/17 12:25 11/14/17 12:11/14/17 12:01 Period Temp Pulse Resp BP Sys/Jean Pulse Ox Last 24 Hr 97.3 F-98.8 F 72-101 13-26 121-169/55-136 92-98 Intake and Output 11/13/17 11/14/17 11/14/17 21:59 05:59 13:59 Intake Total 1480 / 1480 100 / 100 100 / 100 Balance 1480 / 1480 100 / 100 100 / 100 Weight 194 lb 14.4 oz Intake & Output: Intake & Output 11/13/17 11/14/17 11/14/17 21:59 05:59 13:59 Intake Total 1480 / 1480 100 / 100 100 / 100 Balance 1480 / 1480 100 / 100 100 / 100 Weight 194 lb 14.4 oz Intake: IV 820 / 820 50 / 50 Sodium Chloride 0.9% 1,000 ml @ 520 / 520 20 mls/hr IV .Q24H [facility] Rx#: [id number] Nexterone 360 mg In Premix 1 300 / 300 Bag @ 0.5 MG/MIN 16.66 mls/hr IV .Q12H1M [facility] Rx#:[id number] Zosyn 2.25 gm In Dextrose 5% in 50 / 50 Water 50 ml @ 100 mls/hr IV Q12H [facility] Rx#:[id number] Oral 660 / 660 50 / 50 100 / 100 Other: Meal Dinner Breakfast Percent of Meal Consumed 50% 2-3 bites Feeding Ability Assist with Tray Set Up Exam: Constitutional; Afebrile, cooperative, alert, not in distress. Eyes- No icterus, , No periorbital swelling Ears- Ext ear normal, hearing normal to conversation. Neck- Midline trachea, supple Respiratory system: Air Entry equal on both sides, decreased entry on both sides , bilateral expiratory wheezes present. CVS- Rate rhythm regular, S1,S2 heard, no gallop, no rub. 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 Medical - PN: Obj Da - Labs CBC & Chem 7: 11/14/17 04:00 11/14/17 04:00 Labs: Abnormal Lab Results 11/14/17 11/14/17 11/13/17 04:00 04:00 04:00 WBC 14.4 H RBC 2.60 L Hgb 8.2 L Hct 25.1 L RDW 17.3 H MPV 11.5 H Gran % 89.6 H Lymph % (Auto) 5.8 L Gran # 12.9 H Lymph # (Auto) 0.8 L [place] # (Auto) PT INR D-Dimer Potassium 5.4 H Chloride 90 L 95 L Anion Gap 20.0 H BUN 51 H 27 H Creatinine 6.5 H* 5.0 H Glucose 268 H 213 H Calcium 8.5 L Lactate Dehydrogenase 267 H Troponin T NT-Pro-B Natriuret Pep Albumin 11/13/17 11/13/17 11/12/17 04:00 04:00 11:37 WBC RBC 2.44 L Hgb 7.8 L Hct 24.0 L RDW 17.4 H MPV 11.8 H Gran % 86.9 H Lymph % (Auto) 8.0 L Gran # 8.1 H Lymph # (Auto) 0.7 L [place] # (Auto) PT 16.2 H INR 1.3 H D-Dimer 1.92 H Potassium Chloride Anion Gap BUN Creatinine Glucose Calcium Lactate Dehydrogenase Troponin T NT-Pro-B Natriuret Pep Albumin 11/12/17 11/12/17 11/12/17 10:18 08:40 08:40 WBC RBC Hgb Hct RDW MPV Gran % Lymph % (Auto) Gran # Lymph # (Auto) [place] # (Auto) PT INR D-Dimer Potassium Chloride Anion Gap BUN 30 H Creatinine 5.8 H* Glucose 64 L Calcium Lactate Dehydrogenase Troponin T 1.17 H* NT-Pro-B Natriuret Pep > 94820.0 H Albumin 3.1 L 11/12/17 08:40 WBC 12.6 H RBC 2.63 L Hgb 8.4 L Hct 25.2 L RDW 17.2 H MPV 10.5 H Gran % 81.5 H Lymph % (Auto) 8.2 L Gran # 10.3 H Lymph # (Auto) 1.0 L [place] # (Auto) 1.2 H PT INR D-Dimer Potassium Chloride Anion Gap BUN Creatinine Glucose Calcium Lactate Dehydrogenase Troponin T NT-Pro-B Natriuret Pep Albumin Meds: Medications Acetaminophen (Tylenol) 650 mg PO Q4-6HP PRN PRN Reason: PAIN/FEVER > 101 Albuterol/Ipratropium (Duoneb) 3 ml NEB Q4HRT [facility] Last Admin: 11/14/17 11:26 Dose: 3 ml Allopurinol (Zylopriim) 300 mg PO DAILY [facility] Last Admin: 11/14/17 11:06 Dose: Not Given Amiodarone HCl (Cordarone) 100 mg PO [facility] Clopidogrel Bisulfate (Plavix) 75 mg PO DAILY [facility] Last Admin: 11/14/17 11:02 Dose: Not Given Dextrose (Dextrose 50%) 0 ml IV UD PRN PRN Reason: Hypoglycemia Diagnostic Test (Pha) (Accu-Chek) 1 each [facility] Last Admin: 11/14/17 12:05 Dose: 1 each Glucose (Insta-Glucose) 15 gm PO PRN PRN PRN Reason: Hypoglycemia Heparin Sodium (Porcine) (Heparin) 5,000 unit SQ Q12 [facility] Last Admin: 11/14/17 08:17 Dose: 5,000 unit Heparin Sodium (Porcine) (Heparin Flush) 2 ml IV Q12 [facility] Last Admin: 11/14/17 08:19 Dose: 2 ml Piperacillin Sod/Tazobactam (Sod 2.25 gm/ Dextrose) 50 mls @ 100 mls/hr IV Q12H [facility] Last Admin: 11/14/17 11:06 Dose: Not Given Insulin Human Lispro (Humalog) 0 unit SQ [facility] PRN Reason: Protocol Last Admin: 11/14/17 12:24 Dose: 4 unit Lactobacillus Rhamnosus (Culturelle) 1 cap PO BID [facility] Last Admin: 11/14/17 11:02 Dose: Not Given Levothyroxine Sodium (Synthroid) 200 mcg PO ACB [facility] Methylprednisolone Sodium Succinate (Solu-Medrol) 62.5 mg IV Q8 [facility] Last Admin: 11/14/17 05:47 Dose: 62.5 mg Metoprolol Succinate (Toprol Xl) 12.5 mg PO DAILY [facility] Last Admin: 11/14/17 11:06 Dose: Not Given Morphine Sulfate (Morphine) 2 mg IV Q2HP PRN PRN Reason: Pain Last Admin: 11/14/17 06:52 Dose: 2 mg Ondansetron HCl (Zofran) 4 mg IV Q4-6HP PRN PRN Reason: Nausea And Vomiting Pantoprazole Sodium (Protonix) 40 mg IV BIDAC [facility] Last Admin: 11/14/17 06:53 Dose: 40 mg Sevelamer Carbonate (Renvela) 800 mg PO TIDCC [facility] Last Admin: 11/14/17 12:24 Dose: Not Given Simvastatin (Zocor) 40 mg PO HS [facility] Sodium Chloride (Saline Flush) 10 ml IV Q8 [facility] Last Admin: 11/14/17 05:47 Dose: 10 ml Sodium Chloride (Saline Flush) 10 ml IV UD PRN PRN Reason: FLUSH Last Admin: 11/14/17 11:03 Dose: 10 ml Sodium Chloride (Saline Flush) 10 ml IV Q12 [facility] Last Admin: 11/14/17 09:15 Dose: 10 ml Tamsulosin HCl (Flomax) 0.4 mg PO DAILY [facility] Last Admin: 11/14/17 11:02 Dose: Not Given Vancomycin HCl (Vancomycin Per Pharmacy) 1 order IV UD [facility] Medical - PN: A/P - Time Spent With Patient Total time spent is greater than 50% in coordination of care (as documented) at patient's floor/unit and/or counseling patient: - Narrative A/P Narrative: A/P Acute Respiratory Failuire/ Hypoxic- on bipap, continue same, wean off as tolerated Acute copd exacerbation- steroids and duonebs, still wheezing, continue bipap support , Health care associated pneumonia/ Aspiration pneumonia- IV vanco and zosyn continue same H/o CAD s/p Recent Stent placement at [facility]- no chest pain, reviewed with cards in ER, no need for cardiology eval Acute systolic and Diastolic Heart failure- low bp precluding removal of fluids , will give lasix IV tody and see if this helps, continue bipap. HD today to take off fluid afib with rvr- pt has declined anticoagulation, on plavix for recent stent, continue same, patient on amiodarone for rate control , but complains of itching , will consider use of sotalol if patient is against use of this agent. ESRD on Hemodialysis- HD to be done today h/o Acute GI bleed this month- slight drop in hb , pt on IV PPI h/o Recent small bowel obstruction- no issues at this time. h/o recent peritonitis- on braod spectrum abx DM/HTN/HLD- insulin for ssi, resume meds as his bp is much better now. HTN HLD Patient is critically ill, spent > 35 rendering criticalcare reviewing chart, care coordinating, lab, abg and x ray review. non invasive vent management Medical - PN: Qual - VTE Deep Vein Thrombosis/Pulmonary Embolism Present on Admission: No
[2017-11-14 13:32] LABS: Vancomycin,Random 31.4 ug/mL
[2017-11-14] MEDS: SIMVASTATIN 40 MG TABLET PO SCH (20:43)
[2017-11-14] MEDS ORDERED: LORazepam 2 MG/ML VIAL IV ONE (22:54)
[2017-11-14] MEDS ORDERED: LORazepam 2 MG/ML VIAL ONE (22:59)
[2017-11-15] MEDS: IPRATROPIUM/ALBUTEROL 3 ML AMPUL.NEB NEB SCH ×6 (02:47→23:46)
[2017-11-15 05:39] LABS: Basophils # (Auto) 0 K/mcL (0.0-0.3); Basophils % (Auto) 0 % (0.0-2.0); Eosinophils # (Auto) 0 K/mcL (0.0-0.7); Eosinophils % (Auto) 0 % (0.0-7.0); Granulocytes % (Auto) 92.1 % (38.0-78.0); Lymphocytes # (Auto) 0.5 K/mcL (1.5-4.8); Lymphocytes % (Auto) 4.2 % (15.5-49.0); Mean Cell Volume 96.9 fL (80.0-100.0); Mean Corpuscular HGB Conc 33.2 g/dL (31.0-36.0); Mean Corpuscular Hemoglobin 32.2 pg (26.0-34.0); Monocytes # (Auto) 0.4 K/mcL (0.1-0.9); Monocytes % (Auto) 3.7 % (1.0-12.0); Platelet Count 165 K/mcL (140-440); RBC 2.31 M/mcL (4.50-5.90); Red Cell Distribution Width 16.7 % (11.5-14.5)
[2017-11-15] MEDS: 0.9 % SODIUM CHLORIDE 10 ML SYRINGE IV SCH ×8 (05:42→22:12)
[2017-11-15] MEDS: methylPREDNISolone SOD SUCC 125 MG/2 ML VIAL IV SCH ×3 (05:42→22:11)
[2017-11-15 06:14] LABS: ALT/SGPT 22 U/l (0-40); Albumin/Globulin Ratio 1.1 (1.0-2.3); Alkaline Phosphatase 58 U/L (39-117); Bilirubin,Direct < 0.2 mg/dL (0.0-0.3); Blood Urea Nitrogen 42 mg/dl (8-23); Gamma Glutamyl Transpeptidase 36 U/L (8-61); Uric Acid 4.5 mg/dL (2.5-8.0)
[2017-11-15] MEDS: PANTOPRAZOLE 40 MG VIAL IV SCH ×2 (07:03→18:05)
[2017-11-15] MEDS: LEVOTHYROXINE 100 MCG TABLET PO SCH (07:03)
[2017-11-15] MEDS: SEVELAMER 800 MG TABLET PO SCH ×3 (07:43→18:05)
[2017-11-15] MEDS: AMIODARONE HCL 200 MG TABLET PO SCH (07:43)
[2017-11-15] MEDS: INSULIN LISPRO 1 UNIT/0.01 ML UNIT SQ SCH ×5 (07:43→20:40)
[2017-11-15] MEDS: TAMSULOSIN 0.4 MG CAPSULE PO SCH (08:38)
[2017-11-15] MEDS: METOPROLOL SUCCINATE 25 MG TAB.XL.24H PO SCH (08:39)
[2017-11-15] MEDS: CLOPIDOGREL 75 MG TABLET PO SCH (08:39)
[2017-11-15] MEDS: HEPARIN 5,000 UNIT/ML VIAL SQ SCH ×2 (08:39→21:04)
[2017-11-15] MEDS: ALLOPURINOL 300 MG TABLET PO SCH (08:44)
[2017-11-15] MEDS: LACTOBACILLUS 1 CAPSULE PO SCH ×2 (08:44→20:37)
--- NOTE | 2017-11-15 08:46 | Nephrology Progress Note ---
Subjective Patient information: Note initiated : 11/15/17 at 8:44 am Service Date, if different from initiated Date: [] Patient: Stefan Merritt 77 y/o M admitted on 11/12/17 for Shortness of breath. Chief Complaint: Breathing is better. Slightly more confused. Objective - Vital Signs Vital signs: Vital Signs Temp Pulse Resp BP Pulse Ox 11/15/17 08:10 96 H 18 11/15/17 08:01 96 H 19 151/74 94 11/15/17 07:01 97.8 F 85 21 118/69 93 11/15/17 06:45 92 11/15/17 06:01 92 H 20 103/92 88 L 11/15/17 05:01 83 16 104/60 99 11/15/17 05:00 77 16 97 11/15/17 04:01 97.8 F 76 16 100/47 96 11/15/17 03:02 82 16 11/15/17 03:01 81 16 116/78 97 11/15/17 03:00 82 16 99 11/15/17 02:01 76 16 117/60 97 11/15/17 01:01 80 14 111/51 95 11/15/17 01:00 81 14 96 11/15/17 00:01 97.6 F 85 14 111/52 97 11/15/17 00:00 12 94 11/14/17 23:01 95 H 21 107/78 93 11/14/17 22:32 75 17 95 11/14/17 22:31 75 17 11/14/17 22:08 83 15 110/60 96 11/14/17 21:01 85 17 106/45 98 11/14/17 20:31 79 17 97/66 98 11/14/17 19:48 18 96 11/14/17 19:33 97.9 F 14 135/94 98 11/14/17 19:32 81 20 135/94 97 11/14/17 19:15 18 99 11/14/17 19:09 84 15 97/55 100 11/14/17 19:01 19 80/63 11/14/17 19:00 22 99 11/14/17 18:40 79 14 100 11/14/17 18:01 70 9 L 101/78 97 11/14/17 16:31 86 17 123/93 98 11/14/17 16:18 78 14 114/65 97 11/14/17 16:17 97.6 F 79 114/65 07 16:02 87 125/99 11/14/17 16:01 83 22 125/99 99 11/14/17 16:00 97.2 F 14 125/99 97 11/14/17 15:47 86 115/86 11/14/17 15:46 81 18 115/86 97 11/14/17 15:34 83 14 99/86 100 11/14/17 15:33 81 99/86 11/14/17 15:32 77 20 77/59 95 11/14/17 15:21 84 139/108 11/14/17 15:18 80 9 L 139/108 98 11/14/17 15:16 76 22 99 11/14/17 15:01 72 16 106/78 99 11/14/17 15:00 73 106/78 11/14/17 14:48 76 15 97/68 100 11/14/17 14:46 73 15 76/52 100 11/14/17 14:33 77 17 130/93 97 11/14/17 14:19 68 118/70 11/14/17 14:16 66 18 118/70 97 11/14/17 14:06 68 107/71 11/14/17 14:01 68 16 107/71 96 11/14/17 13:52 68 98/60 11/14/17 13:46 67 17 98/60 96 11/14/17 13:45 68 102/61 11/14/17 13:41 69 15 94 11/14/17 13:31 14 102/61 100 11/14/17 13:30 99 11/14/17 13:20 67 93/63 07 13:16 13 93/63 99 11/14/17 13:01 14 115/72 96 11/14/17 12:50 96.8 F L 74 122/78 11/14/17 12:46 11 L 122/78 95 11/14/17 12:41 12 122/49 98 11/14/17 12:25 19 11/14/17 12:01 98.1 F 91 H 19 127/115 92 11/14/17 11:29 75 14 97 11/14/17 11:01 88 14 128/81 96 11/14/17 10:58 95 H 16 97 11/14/17 10:06 97 H 19 131/97 98 11/14/17 09:02 16 148/55 11/14/17 08:52 98.8 F Intake and Output 11/14/17 11/15/17 11/15/17 21:59 05:59 13:59 Intake Total 290 / 290 100 / 100 120 / 120 Output Total 2700 / 2700 0 / 0 Balance -2410 / -2410 100 / 100 120 / 120 Intake: IV 50 / 50 Zosyn 2.25 gm In Dextrose 5% in 50 / 50 Water 50 ml @ 100 mls/hr IV Q12H [facility] Rx#:[id number] Oral 240 / 240 100 / 100 120 / 120 Output: Void Amount 0 / 0 Hemodialysis UF 2700 / 2700 Other: Meal Dinner Nourishment/Supplement Percent of Meal Consumed 75% 100% Feeding Ability Assist with Tray Set Up # Bowel Movements 0 Weight 192 lb 14.4 oz Intake & Output: Intake & Output 11/14/17 11/15/17 11/15/17 21:59 05:59 13:59 Intake Total 290 / 290 100 / 100 120 / 120 Output Total 2700 / 2700 0 / 0 Balance -2410 / -2410 100 / 100 120 / 120 Weight 192 lb 14.4 oz Intake: IV 50 / 50 Zosyn 2.25 gm In Dextrose 5% in 50 / 50 Water 50 ml @ 100 mls/hr IV Q12H [facility] Rx#:[id number] Oral 240 / 240 100 / 100 120 / 120 Output: Void Amount 0 / 0 Hemodialysis UF 2700 / 2700 Other: Meal Dinner Nourishment/Supplement Percent of Meal Consumed 75% 100% Feeding Ability Assist with Tray Set Up # Bowel Movements 0 - General Appearance General appearance: well-developed EENT: ATNC Neck: no JVD Cardiology: no murmurs Gastrointestinal: normoactive bowel sounds Neurologic: no focal deficit, confused Musculoskeletal: no deformities - Lab 11/15/17 04:00 11/15/17 04:00 Most recent lab results Calcium 8.5 mg/dl (8.6-10.4) L 11/15/17 04:00 Phosphorus 5.5 mg/dL (2.7-4.5) H 11/15/17 04:00 Magnesium 2.1 mg/dL (1.6-2.5) 11/15/17 04:00 Assessment and Plan (1) ESRD (end stage renal disease) on dialysis Status: Acute Comment: 1. Volume overload. He was dialysed yesterday. Tolerated better. Will try today, more carefully as he might not have the same amount of fluids. 2. Anemia. Will transfuse 2 units of prbc. 3. Hyperphos. Will start Tums with meals.
[2017-11-15] MEDS ORDERED: 0.9 % SODIUM CHLORIDE 250 ML IV SCH (09:00)
--- NOTE | 2017-11-15 13:13 | Internal Med Progress Note ---
Medical - PN: Subj Patient information: Note initiated : 11/15/17 at 1:10 pm Service Date, if different from initiated Date: [] Patient: Stefan Merritt 77 y/o M admitted on 11/12/17 for SOB/Pneumonia, Hypoxic Resp Failure. Chief Complaint: [] Interval history: Mr. Merritt is a 77 year old Male with multiple medical issues, recently discharged from [facility] presents to the ER today for complaints of shortness of breath x 1 day. Pt is presently very short of breath, on bipap and is able to provide only limited history, most history from chart review. The patient was recently in [facility], had a protracted course, NSTEMI , s/p Stent, ESRd on HD, had PD cath which developed infection and he had peritonitis, He had Upper GI Bleed, duodenal ulcer, Small bowel obstruction and aspiration pneumonia. The patient was stabilized and discharged I believe on the to SNF. The patient became short of breath this AM as per the patient, he was taken to [facility] where they did an x ray and noted he has pna, started him on rocephin? he was already on cipro? Patient was sent back to SNf, where he was tachypneic and he was then sent to our ER for further evaluation. In our hospital the patient is febrile temp 101, Tachycardic with HR 136, bp normal but on the lower end, oxygen sat was low, significant tachypenia. X ray shows nimco basilar pneumonia, Right IJ EKG sinus tachy, left axis, qs in ant leads falttened t waves in lateral leads, labs show leucocytosis 12.6, procalcitonin 1.05, hb 8.4, plat 182, Na 137, K 3.7, bicat 2.6, creat 5.8, glucose 64 lactic acid 2.1 on abg Trop elevated at 1.17, it was 5.4 on 10/26/17 Cardiology was consulted on phone and Dr Lockhart at [facility] , who did not feel pt needs to be at [facility] or needed cardiolgoy intervention. (as per er provider) Patient is very tachypneic but saturating well after initiation of bipap, Dr Guzmán notified for need for dialysis, patient being admitted to the ICU for further management. 11/13 Patient seen and examined, on BiPAP tolerating the BiPAP well, mental status is better. He gets hypoxic and short of breath of the BiPAP. Bilateral wheezing present on exam. Chest x-ray done today shows CHF, improved infiltrates. Yesterday during dialysis the patient became hypotensive and therefore we were unable to remove much fluid. [id number] ultrasound showed that the patient had a dilated IVC but was collapsing appropriately with inspiration. Patient also had A. fib with RVR. IV amiodarone given with good rate control. 11/14 Patient seen and examined, overnight remains on BiPAP. This morning is short of breath, bilateral wheezing worse than yesterday. Chest x-ray shows worsening CHF. We had given the patient Lasix yesterday however it seems that it did not help much not make much urine. Contacted nephrology for need for dialysis today. Dialysis team aware and will dialyze the patient today. Patient reports that he has itching with amiodarone, and his director furniture said not to take it, I reviewed the previous hospital stay and it seems that the patient was on amiodarone during that hospital stay, he also tolerated amiodarone well besides some itching. I am not sure if his itching is truly related to use of amiodarone however I will consider switching this to an alternative agent should the patient desire. 11/15 Patient seen and examined, case reviewed with nephrology. The patient was confused and agitated last night needing Ativan. The patient this morning seems to be back to baseline however seems a bit more fidgety and anxious. He is going to get dialyzed again today. Exam shows persistent wheezing. Continue antibiotics labs are stable hemoglobin is 7.4 patient is agreeable to blood transfusion today we will give 2 units. Pertinent ROS: Denies headache, dizziness Denies chest pain, palpitations sob and cough improving Denies abdominal pain, nausea or vomiting. - Constitutional Vitals: Vital Signs Temp Pulse Resp BP Pulse Ox 98.3 F 86 27 H 150/74 91 11/15/17 13:06 11/15/17 13:06 11/15/17 13:11/15/17 13:11/15/17 13:06 Period Temp Pulse Resp BP Sys/Jean Pulse Ox Last 24 Hr 97.2 F-98.4 F 66-109 9-27 76-151/45-111 88-100 Intake and Output 11/14/17 11/15/17 11/15/17 21:59 05:59 13:59 Intake Total 290 / 290 100 / 100 360 / 360 Output Total 2700 / 2700 0 / 0 Balance -2410 / -2410 100 / 100 360 / 360 Weight 192 lb 14.4 oz Intake & Output: Intake & Output 11/14/17 11/15/17 11/15/17 21:59 05:59 13:59 Intake Total 290 / 290 100 / 100 360 / 360 Output Total 2700 / 2700 0 / 0 Balance -2410 / -2410 100 / 100 360 / 360 Weight 192 lb 14.4 oz Intake: IV 50 / 50 Zosyn 2.25 gm In Dextrose 5% in 50 / 50 Water 50 ml @ 100 mls/hr IV Q12H [facility] Rx#:[id number] Oral 240 / 240 100 / 100 360 / 360 Output: Void Amount 0 / 0 Hemodialysis UF 2700 / 2700 Other: Meal Dinner Breakfast Percent of Meal Consumed 75% 50% Feeding Ability Assist with Tray Set Up Independent # Bowel Movements 0 Exam: Constitutional; Afebrile, cooperative, alert, not in distress. Eyes- No icterus, , No periorbital swelling Ears- Ext ear normal, hearing normal to conversation. Neck- Midline trachea, supple Respiratory system: Air Entry equal on both sides, nimco exp wheeze, prolonged exp phase, speaking full sentences. CVS- Rate rhythm regular, S1,S2 heard, no gallop, no rub. Abdomen- Soft nontender abdomen, no organomegaly, no tenderness, no guarding or rigidity, MANAGER STAFFING- AOOx3, moving all extremities, no gross focal deficit noted. Medical - PN: Obj Da - Labs CBC & Chem 7: 11/15/17 04:00 11/15/17 04:00 Labs: Abnormal Lab Results 11/15/17 11/15/17 11/14/17 04:00 04:00 04:00 WBC 12.0 H RBC 2.31 L Hgb 7.4 L Hct 22.4 L RDW 16.7 H MPV 11.8 H Gran % 92.1 H Lymph % (Auto) 4.2 L Gran # 11.1 H Lymph # (Auto) 0.5 L PT INR Potassium 5.4 H Chloride 95 L 90 L Anion Gap 20.0 H BUN 42 H 51 H Creatinine 4.7 H 6.5 H* Glucose 254 H 268 H Calcium 8.5 L Phosphorus 5.5 H Lactate Dehydrogenase 251 H Total Protein 5.8 L Albumin 3.0 L Triglycerides 194 H 11/14/17 11/13/17 11/13/17 04:00 04:00 04:00 WBC 14.4 H RBC 2.60 L Hgb 8.2 L Hct 25.1 L RDW 17.3 H MPV 11.5 H Gran % 89.6 H Lymph % (Auto) 5.8 L Gran # 12.9 H Lymph # (Auto) 0.8 L PT 16.2 H INR 1.3 H Potassium Chloride 95 L Anion Gap BUN 27 H Creatinine 5.0 H Glucose 213 H Calcium 8.5 L Phosphorus Lactate Dehydrogenase 267 H Total Protein Albumin Triglycerides 11/13/17 04:00 WBC RBC 2.44 L Hgb 7.8 L Hct 24.0 L RDW 17.4 H MPV 11.8 H Gran % 86.9 H Lymph % (Auto) 8.0 L Gran # 8.1 H Lymph # (Auto) 0.7 L PT INR Potassium Chloride Anion Gap BUN Creatinine Glucose Calcium Phosphorus Lactate Dehydrogenase Total Protein Albumin Triglycerides Meds: Medications Acetaminophen (Tylenol) 650 mg PO Q4-6HP PRN PRN Reason: PAIN/FEVER > 101 Albuterol/Ipratropium (Duoneb) 3 ml NEB Q4HRT [facility] Last Admin: 11/15/17 11:36 Dose: 3 ml Allopurinol (Zylopriim) 300 mg PO DAILY [facility] Last Admin: 11/15/17 08:44 Dose: 300 mg [facility]) [facility] Last Admin: 11/15/17 07:43 Dose: 100 mg Calcium Carbonate/Glycine (Tums) 1,500 mg CHEWED TIDCC [facility]1983 Clopidogrel Bisulfate (Plavix) 75 mg PO DAILY [facility] Last Admin: 11/15/17 08:39 Dose: 75 mg Dextrose (Dextrose 50%) 0 ml IV UD PRN PRN Reason: Hypoglycemia Diagnostic Test (Pha) (Accu-Chek) 1 each FS ACHS [facility] Last Admin: 11/15/17 11:30 Dose: 1 each Glucose (Insta-Glucose) 15 gm PO PRN PRN PRN Reason: Hypoglycemia Heparin Sodium (Porcine) (Heparin) 5,000 unit SQ Q12 [facility] Last Admin: 11/15/17 08:39 Dose: 5,000 unit Heparin Sodium (Porcine) (Heparin Flush) 2 ml IV Q12 [facility] Last Admin: 11/15/17 08:44 Dose: 2 ml Piperacillin Sod/Tazobactam (Sod 2.25 gm/ Dextrose) 50 mls @ 100 mls/hr IV Q12H [facility] Last Infusion: 11/14/17 21:32 Dose: Infused Sodium Chloride (Sodium Chloride 0.9%) 250 mls @ 20 mls/hr IV .[id number] [facility] Stop: 11/15/17 21:29 Insulin Human Lispro (Humalog) 0 unit SQ ACHS [facility] PRN Reason: Protocol Last Admin: 11/15/17 11:44 Dose: 10 unit Lactobacillus Rhamnosus (Culturelle) 1 cap PO BID [facility] Last Admin: 11/15/17 08:44 Dose: 1 cap Levothyroxine Sodium (Synthroid) 200 mcg PO ACB [facility] Last Admin: 11/15/17 07:03 Dose: 200 mcg Methylprednisolone Sodium Succinate (Solu-Medrol) 62.5 mg IV Q8 [facility] Last Admin: 11/15/17 05:42 Dose: 62.5 mg Metoprolol Succinate (Toprol Xl) 12.5 mg PO DAILY [facility] Last Admin: 11/15/17 08:39 Dose: 12.5 mg Morphine Sulfate (Morphine) 2 mg IV Q2HP PRN PRN Reason: Pain Last Admin: 11/15/17 06:31 Dose: 2 mg Ondansetron HCl (Zofran) 4 mg IV Q4-6HP PRN PRN Reason: Nausea And Vomiting Pantoprazole Sodium (Protonix) 40 mg IV BIDAC [facility] Last Admin: 11/15/17 07:03 Dose: 40 mg Sevelamer Carbonate (Renvela) 800 mg PO TIDCC [facility] Last Admin: 11/15/17 07:43 Dose: 800 mg Simvastatin (Zocor) 40 mg PO HS [facility] Last Admin: 11/14/17 20:43 Dose: 40 mg Sodium Chloride (Saline Flush) 10 ml IV Q8 [facility] Last Admin: 11/15/17 07:03 Dose: 10 ml Sodium Chloride (Saline Flush) 10 ml IV UD PRN PRN Reason: FLUSH Last Admin: 11/14/17 16:44 Dose: 10 ml Sodium Chloride (Saline Flush) 10 ml IV Q12 [facility] Last Admin: 11/15/17 08:40 Dose: 10 ml Tamsulosin HCl (Flomax) 0.4 mg PO DAILY [facility] Last Admin: 11/15/17 08:38 Dose: 0.4 mg Vancomycin HCl (Vancomycin Per Pharmacy) 1 order IV UD [facility] Medical - PN: A/P - Time Spent With Patient Total time spent is greater than 50% in coordination of care (as documented) at patient's floor/unit and/or counseling patient: - Narrative A/P Narrative: A/P Acute Respiratory Failuire/ Hypoxic- on bipap, continue same, wean off as tolerated , was on 2 L NC, Acute copd exacerbation- steroids and duonebs, still wheezing,but resp status much better, continue medical management. Health care associated pneumonia/ Aspiration pneumonia- IV vanco and zosyn continue same , microbiology neg so far. H/o CAD s/p Recent Stent placement at [facility]- no chest pain, reviewed with cards in ER, no need for cardiology eval Acute systolic and Diastolic Heart failure- Not responding to lasix, fluid removal via HD. afib with rvr- pt has declined anticoagulation, on plavix for recent stent, continue same, patient on amiodarone for rate control , but complains of itching , will consider use of sotalol if patient is against use of this agent. Today did not complain about itching, itching could be related to uremia? rather than allergy to amiodarone. ESRD on Hemodialysis- HD to be done today h/o Acute GI bleed this month- slight drop in hb 7.4, pt on IV PPI , 2 units prbc today h/o Recent small bowel obstruction- no issues at this time. h/o recent peritonitis- on braod spectrum abx DM/HTN/HLD- insulin for ssi, resume meds as his bp is much better now. HTN HLD Patient is critically ill, spent > 35 rendering criticalcare reviewing chart, care coordinating, lab, abg and x ray review. non invasive vent management Medical - PN: Qual - VTE Deep Vein Thrombosis/Pulmonary Embolism Present on Admission: No
[2017-11-15] MEDS ORDERED: METOPROLOL TARTRATE 5 MG/5 ML VIAL IV ONE ×4 (14:04→18:45)
[2017-11-15] MEDS: PIPERACILLIN SODIUM/TAZOBACTAM 2.25 GM in DEXTROSE 5% IN WATER 50 ML IV SCH ×2 (14:33→21:37)
[2017-11-15] MEDS: CALCIUM CARBONATE 500 MG TAB.CHEW CHEWED SCH ×2 (14:46→18:05)
[2017-11-15] MEDS ORDERED: DILTIAZEM 25 MG/5 ML VIAL IV ONE ×2 (17:24→17:53)
[2017-11-15] MEDS ORDERED: diphenhydrAMINE 25 MG CAPSULE PO PRN (18:16)
[2017-11-15] MEDS: METOPROLOL TARTRATE 5 MG/5 ML VIAL IV SCH ×3 (18:22→18:50)
[2017-11-15] MEDS: METOPROLOL TARTRATE 25 MG TABLET PO SCH ×2 (19:38→21:03)
[2017-11-15] MEDS ORDERED: DIGOXIN 500 MCG/2 ML AMPUL IV ONE (20:30)
[2017-11-15] MEDS ORDERED: BISACODYL 10 MG SUPP.RECT PR PRN (20:34)
[2017-11-15] MEDS: SIMVASTATIN 40 MG TABLET PO SCH (20:37)
[2017-11-15] MEDS: INSULIN GLARGINE, HUMAN 1 UNIT/0.01 ML SQ SCH (20:43)
[2017-11-15] MEDS: DOCUSATE SODIUM 100 MG CAPSULE PO SCH (20:46)
[2017-11-16] MEDS ORDERED: OLANZapine 10 MG VIAL IM PRN ×2 (01:31→10:43)
[2017-11-16] MEDS ORDERED: OLANZapine 10 MG VIAL IM ONE (01:36)
[2017-11-16] MEDS: IPRATROPIUM/ALBUTEROL 3 ML AMPUL.NEB NEB SCH ×6 (03:06→22:57)
[2017-11-16 06:04] LABS: Basophils # (Auto) 0 K/mcL (0.0-0.3); Basophils % (Auto) 0.2 % (0.0-2.0); Eosinophils # (Auto) 0 K/mcL (0.0-0.7); Eosinophils % (Auto) 0 % (0.0-7.0); Granulocytes % (Auto) 89.9 % (38.0-78.0); Lymphocytes # (Auto) 0.7 K/mcL (1.5-4.8); Lymphocytes % (Auto) 4.9 % (15.5-49.0); Mean Cell Volume 97.1 fL (80.0-100.0); Mean Corpuscular HGB Conc 33.8 g/dL (31.0-36.0); Mean Corpuscular Hemoglobin 32.9 pg (26.0-34.0); Monocytes # (Auto) 0.7 K/mcL (0.1-0.9); Platelet Count 168 K/mcL (140-440); RBC 3.04 M/mcL (4.50-5.90)
[2017-11-16 06:13] LABS: ALT/SGPT 28 U/l (0-40); Albumin 3.2 gm/dL (3.2-5.2); Alkaline Phosphatase 70 U/L (39-117); Bilirubin,Direct 0.3 mg/dL (0.0-0.3); Blood Urea Nitrogen 44 mg/dl (8-23); Gamma Glutamyl Transpeptidase 47 U/L (8-61); Uric Acid 3.7 mg/dL (2.5-8.0)
[2017-11-16] MEDS: 0.9 % SODIUM CHLORIDE 10 ML SYRINGE IV SCH ×7 (06:20→22:49)
[2017-11-16] MEDS: methylPREDNISolone SOD SUCC 125 MG/2 ML VIAL IV SCH ×3 (06:20→22:16)
[2017-11-16] MEDS: AMIODARONE HCL 200 MG TABLET PO SCH (07:24)
[2017-11-16] MEDS: LEVOTHYROXINE 100 MCG TABLET PO SCH (07:24)
[2017-11-16] MEDS: SEVELAMER 800 MG TABLET PO SCH ×3 (07:24→17:09)
[2017-11-16] MEDS: PANTOPRAZOLE 40 MG VIAL IV SCH ×2 (07:26→17:09)
[2017-11-16] MEDS: CALCIUM CARBONATE 500 MG TAB.CHEW CHEWED SCH ×3 (07:26→17:09)
[2017-11-16] MEDS ORDERED: traZODone HCL 50 MG TABLET PO ONE (07:30)
[2017-11-16] MEDS: INSULIN LISPRO 1 UNIT/0.01 ML UNIT SQ SCH ×4 (07:43→23:35)
--- NOTE | 2017-11-16 07:58 | XRay Report ---
INDICATION: Hypoxia TECHNIQUE: AP chest x-ray, portable upright COMPARISON: 11/14/2017, 11/13/2017, 11/12/2017 FINDINGS: Large caliber right central venous catheter with its tip in the superior vena cava. This is unchanged. Left-sided PICC line with its tip in superior vena cava. There is mild cardiomegaly, unchanged. Pulmonary vascularity is prominent consistent with pulmonary congestion. There is mild peribronchial thickening. Mild interstitial edema is possible. Findings are unchanged. No new abnormalities. No alveolar infiltrates. No pleural fluid identified on AP chest x-ray. IMPRESSION: 1. Cardiomegaly and pulmonary congestion. Mild chronic interstitial edema is possible. 2. No acute infiltrate. No significant interval change since 11/14/2017 Interpreted and Authenticated by: Dre Walker 11/16/17
[2017-11-16 08:31] LABS: Vancomycin,Random 20.9 ug/mL
[2017-11-16] MEDS: ALLOPURINOL 300 MG TABLET PO SCH (08:37)
[2017-11-16] MEDS: DOCUSATE SODIUM 100 MG CAPSULE PO SCH ×2 (08:37→22:16)
[2017-11-16] MEDS: METOPROLOL TARTRATE 25 MG TABLET PO SCH ×2 (08:37→22:16)
[2017-11-16] MEDS: CLOPIDOGREL 75 MG TABLET PO SCH (08:37)
[2017-11-16] MEDS: HEPARIN 5,000 UNIT/ML VIAL SQ SCH ×2 (08:37→22:16)
[2017-11-16] MEDS: LACTOBACILLUS 1 CAPSULE PO SCH ×2 (08:37→22:16)
[2017-11-16] MEDS: TAMSULOSIN 0.4 MG CAPSULE PO SCH (08:37)
[2017-11-16] MEDS: INSULIN GLARGINE, HUMAN 1 UNIT/0.01 ML SQ SCH ×2 (08:38→22:22)
--- NOTE | 2017-11-16 09:44 | Internal Med Progress Note ---
Medical - PN: Subj Patient information: Note initiated : 11/16/17 at 9:41 am Service Date, if different from initiated Date: [] Patient: Stefan Merritt 77 y/o M admitted on 11/12/17 for SOB/Pneumonia, Hypoxic Resp Failure. Chief Complaint: [] Interval history: Mr. Merritt is a 77 year old Male with multiple medical issues, recently discharged from [facility] presents to the ER today for complaints of shortness of breath x 1 day. Pt is presently very short of breath, on bipap and is able to provide only limited history, most history from chart review. The patient was recently in [facility], had a protracted course, NSTEMI , s/p Stent, ESRd on HD, had PD cath which developed infection and he had peritonitis, He had Upper GI Bleed, duodenal ulcer, Small bowel obstruction and aspiration pneumonia. The patient was stabilized and discharged I believe on the to SNF. The patient became short of breath this AM as per the patient, he was taken to [facility] where they did an x ray and noted he has pna, started him on rocephin? he was already on cipro? Patient was sent back to SNf, where he was tachypneic and he was then sent to our ER for further evaluation. In our hospital the patient is febrile temp 101, Tachycardic with HR 136, bp normal but on the lower end, oxygen sat was low, significant tachypenia. X ray shows nimco basilar pneumonia, Right IJ EKG sinus tachy, left axis, qs in ant leads falttened t waves in lateral leads, labs show leucocytosis 12.6, procalcitonin 1.05, hb 8.4, plat 182, Na 137, K 3.7, bicat 2.6, creat 5.8, glucose 64 lactic acid 2.1 on abg Trop elevated at 1.17, it was 5.4 on 10/26/17 Cardiology was consulted on phone and Dr Lockhart at [facility] , who did not feel pt needs to be at [facility] or needed cardiolgoy intervention. (as per er provider) Patient is very tachypneic but saturating well after initiation of bipap, Dr Guzmán notified for need for dialysis, patient being admitted to the ICU for further management. 11/13 Patient seen and examined, on BiPAP tolerating the BiPAP well, mental status is better. He gets hypoxic and short of breath of the BiPAP. Bilateral wheezing present on exam. Chest x-ray done today shows CHF, improved infiltrates. Yesterday during dialysis the patient became hypotensive and therefore we were unable to remove much fluid. [id number] ultrasound showed that the patient had a dilated IVC but was collapsing appropriately with inspiration. Patient also had A. fib with RVR. IV amiodarone given with good rate control. 11/14 Patient seen and examined, overnight remains on BiPAP. This morning is short of breath, bilateral wheezing worse than yesterday. Chest x-ray shows worsening CHF. We had given the patient Lasix yesterday however it seems that it did not help much not make much urine. Contacted nephrology for need for dialysis today. Dialysis team aware and will dialyze the patient today. Patient reports that he has itching with amiodarone, and his instrument lens grinder said not to take it, I reviewed the previous hospital stay and it seems that the patient was on amiodarone during that hospital stay, he also tolerated amiodarone well besides some itching. I am not sure if his itching is truly related to use of amiodarone however I will consider switching this to an alternative agent should the patient desire. 11/15 Patient seen and examined, case reviewed with nephrology. The patient was confused and agitated last night needing Ativan. The patient this morning seems to be back to baseline however seems a bit more fidgety and anxious. He is going to get dialyzed again today. Exam shows persistent wheezing. Continue antibiotics labs are stable hemoglobin is 7.4 patient is agreeable to blood transfusion today we will give 2 units. 11/16 Patient seen examined, overnight was anxious, figidty, needed zyprexa no complaints this AM, still appears a bit anxious will give trazodone now, and again pm zpyrpexa qhs prn s/p hd yesterday, cxr today shows mild edema, will need another HD session tomorrow bipap prn microbiology neg so far hb improved to 10 Pertinent ROS: Denies headache, dizziness Denies chest pain, palpitations Denies cough or shortness of breath Denies abdominal pain, nausea or vomiting. - Constitutional Vitals: Vital Signs Temp Pulse Resp BP Pulse Ox 98.2 F 79 15 169/73 93 07//18 04:01 11/16/17 07:34 11/16/17 07:34 11/16/17 07:01 11/16/17 07:05 Period Temp Pulse Resp BP Sys/Jean Pulse Ox Last 24 Hr 97.8 F-99.1 F 37-154 11-31 66-187/41-143 86-99 Intake and Output 11/15/17 11/16/17 11/16/17 21:59 05:59 13:59 Intake Total 649 / 649 350 / 350 180 / 180 Output Total 2622 / 2622 0 / 0 Balance -1972 350 / 350 180 / 180 Weight 185 lb 8 oz Intake & Output: Intake & Output 11/15/17 11/16/17 11/16/17 21:59 05:59 13:59 Intake Total 649 / 649 350 / 350 180 / 180 Output Total 2622 / 2622 0 / 0 Balance -1972 350 / 350 180 / 180 Weight 185 lb 8 oz Intake: IV 99 / 99 50 / 50 Sodium Chloride 0.9% 250 ml @ 49 / 49 20 mls/hr IV .[id number] [facility] Rx#: [id number] Zosyn 2.25 gm In Dextrose 5% in 50 / 50 50 / 50 Water 50 ml @ 100 mls/hr IV Q12H [facility] Rx#:[id number] Oral 240 / 240 300 / 300 180 / 180 Blood Product 310 / 310 Output: Void Amount 0 / 0 Hemodialysis UF 2622 / 2622 Other: Meal Dinner Breakfast Percent of Meal Consumed 50% 100% # Voids 0 # Bowel Movements 0 Exam: Constitutional; Afebrile, cooperative, alert, not in distress, appears anxious, Eyes- No icterus, , No periorbital swelling Ears- Ext ear normal, hearing normal to conversation. Neck- Midline trachea, supple Respiratory system: air entry equal on both sides, prolonged exp phase, mild exp wheezing much improved from yesterday. CVS- Rate rhythm regular, S1,S2 heard, no gallop, no rub. Abdomen- Soft nontender abdomen, no organomegaly, no tenderness, no guarding or rigidity, [employer]- AOOx3, moving all extremities, no gross focal deficit noted. Medical - PN: Obj Da - Labs CBC & Chem 7: 07/03/18 04:50 11/16/17 04:50 Labs: Abnormal Lab Results 11/16/17 11/16/17 11/15/17 04:50 04:50 18:16 WBC 13.6 H RBC 3.04 L Hgb 10.0 L Hct 29.5 L RDW 17.0 H MPV 10.9 H Gran % 89.9 H Lymph % (Auto) 4.9 L Gran # 12.2 H Lymph # (Auto) 0.7 L Potassium Chloride 93 L Anion Gap BUN 44 H Creatinine 5.0 H Glucose 292 H Calcium Phosphorus 5.6 H Total Bilirubin 1.4 H AST 41 H Lactate Dehydrogenase 732 H Total Protein Albumin Triglycerides 184 H TSH Free T3 pg/mL 1.1 L 11/15/17 11/15/17 11/15/17 18:16 04:00 04:00 WBC 12.0 H RBC 2.31 L Hgb 7.4 L Hct 22.4 L RDW 16.7 H MPV 11.8 H Gran % 92.1 H Lymph % (Auto) 4.2 L Gran # 11.1 H Lymph # (Auto) 0.5 L Potassium Chloride 95 L Anion Gap BUN 42 H Creatinine 4.7 H Glucose 254 H Calcium 8.5 L Phosphorus 5.5 H Total Bilirubin AST Lactate Dehydrogenase 251 H Total Protein 5.8 L Albumin 3.0 L Triglycerides 194 H TSH 11.92 H Free T3 pg/mL 11/14/17 11/14/17 04:00 04:00 WBC 14.4 H RBC 2.60 L Hgb 8.2 L Hct 25.1 L RDW 17.3 H MPV 11.5 H Gran % 89.6 H Lymph % (Auto) 5.8 L Gran # 12.9 H Lymph # (Auto) 0.8 L Potassium 5.4 H Chloride 90 L Anion Gap 20.0 H BUN 51 H Creatinine 6.5 H* Glucose 268 H Calcium Phosphorus Total Bilirubin AST Lactate Dehydrogenase Total Protein Albumin Triglycerides TSH Free T3 pg/mL Meds: Medications Acetaminophen (Tylenol) 650 mg PO Q4-6HP PRN PRN Reason: PAIN/FEVER > 101 Albuterol/Ipratropium (Duoneb) 3 ml NEB Q4HRT [facility] Last Admin: 11/16/17 07:11 Dose: 3 ml Allopurinol (Zylopriim) 300 mg PO DAILY [facility] Last Admin: 11/16/17 08:37 Dose: 300 mg Amiodarone HCl (Cordarone) 100 mg PO QAMCC [facility] Last Admin: 11/16/17 07:24 Dose: 100 mg Bisacodyl (Dulcolax) 10 mg ME Q2-3DAYS PRN PRN Reason: Constipation Calcium Carbonate/Glycine (Tums) 1,500 mg CHEWED TIDCC [facility] Last Admin: 11/16/17 07:26 Dose: 1,500 mg Clopidogrel Bisulfate (Plavix) 75 mg PO DAILY [facility] Last Admin: 11/16/17 08:37 Dose: 75 mg Dextrose (Dextrose 50%) 0 ml IV UD PRN PRN Reason: Hypoglycemia Diagnostic Test (Pha) (Accu-Chek) 1 each FS ACHS [facility] Last Admin: 11/16/17 07:30 Dose: 1 each Diphenhydramine HCl (Benadryl) 25 mg PO HSP PRN PRN Reason: Insomnia Last Admin: 11/15/17 20:33 Dose: 25 mg Docusate Sodium (Colace) 100 mg PO BID [facility] Last Admin: 11/16/17 08:37 Dose: 100 mg Glucose (Insta-Glucose) 15 gm PO PRN PRN PRN Reason: Hypoglycemia Heparin Sodium (Porcine) (Heparin) 5,000 unit SQ Q12 [facility] Last Admin: 11/16/17 08:37 Dose: 5,000 unit Heparin Sodium (Porcine) (Heparin Flush) 2 ml IV Q12 [facility] Last Admin: 11/16/17 08:40 Dose: 2 ml Piperacillin Sod/Tazobactam (Sod 2.25 gm/ Dextrose) 50 mls @ 100 mls/hr IV Q12H [facility] Last Infusion: 11/15/17 22:00 Dose: Infused Insulin Glargine (Lantus) 15 unit SQ BID [facility] Last Admin: 11/16/17 08:38 Dose: 15 unit Insulin Human Lispro (Humalog) 0 unit SQ ACHS [facility] PRN Reason: Protocol Last Admin: 11/16/17 07:43 Dose: 8 unit Lactobacillus Rhamnosus (Culturelle) 1 cap PO BID [facility] Last Admin: 11/16/17 08:37 Dose: 1 cap Levothyroxine Sodium (Synthroid) 200 mcg PO ACB [facility] Last Admin: 11/16/17 07:24 Dose: 200 mcg Methylprednisolone Sodium Succinate (Solu-Medrol) 62.5 mg IV Q8 [facility] Last Admin: 11/16/17 06:20 Dose: 62.5 mg Metoprolol Tartrate (Lopressor) 25 mg PO BID [facility] Last Admin: 11/16/17 08:37 Dose: 25 mg Morphine Sulfate (Morphine) 2 mg IV Q2HP PRN PRN Reason: Pain Last Admin: 11/16/17 02:06 Dose: 2 mg Olanzapine (Zyprexa) 5 mg IM HSP PRN PRN Reason: Anxiety Ondansetron HCl (Zofran) 4 mg IV Q4-6HP PRN PRN Reason: Nausea And Vomiting Pantoprazole Sodium (Protonix) 40 mg IV BIDAC [facility] Last Admin: 11/16/17 07:26 Dose: 40 mg Sevelamer Carbonate (Renvela) 800 mg PO TIDCC [facility] Last Admin: 11/16/17 07:24 Dose: 800 mg Simvastatin (Zocor) 40 mg PO HS [facility] Last Admin: 11/15/17 20:37 Dose: 40 mg Sodium Chloride (Saline Flush) 10 ml IV Q8 [facility] Last Admin: 11/16/17 07:26 Dose: 10 ml Sodium Chloride (Saline Flush) 10 ml IV UD PRN PRN Reason: FLUSH Last Admin: 11/14/17 16:44 Dose: 10 ml Sodium Chloride (Saline Flush) 10 ml IV Q12 [facility] Last Admin: 11/15/17 22:12 Dose: 10 ml Tamsulosin HCl (Flomax) 0.4 mg PO DAILY [facility] Last Admin: 11/16/17 08:37 Dose: 0.4 mg Trazodone HCl (Desyrel) 100 mg PO [facility] Vancomycin HCl (Vancomycin Per Pharmacy) 1 order IV UD [facility] Medical - PN: A/P - Time Spent With Patient Total time spent is greater than 50% in coordination of care (as documented) at patient's floor/unit and/or counseling patient: - Narrative A/P Narrative: A/P Acute Respiratory Failuire/ Hypoxic- on bipap, continue same, wean off as tolerated , was on 2 L NC, Acute copd exacerbation- steroids and duonebs, wheezing much improved today, but still has some. Health care associated pneumonia/ Aspiration pneumonia- IV vanco and zosyn continue same , microbiology neg so far. H/o CAD s/p Recent Stent placement at [facility]- no chest pain, reviewed with cards in ER, no need for cardiology eval Acute systolic and Diastolic Heart failure- Not responding to lasix, fluid removal via HD. afib with rvr- pt has declined anticoagulation, on plavix for recent stent, continue same, patient on amiodarone for rate control , but complains of itching , will consider use of sotalol if patient is against use of this agent. Today did not complain about itching, itching could be related to uremia? rather than allergy to amiodarone. the patietn has AFib with RVR after HD sessions, despite being on amiodarone, He needed digoxin last night for rate control, if this pattern continues, I will touch base with aptients instrument lens grinder to see if there is an alternative? betapace? tsh is not low, but mildy elevated, t4 is normal ESRD on Hemodialysis- HD per nephrology, h/o Acute GI bleed this month- hb improved after 2 units appropriately, trend h/o Recent small bowel obstruction- no issues at this time. h/o recent peritonitis- on braod spectrum abx DM/HTN/HLD- insulin for ssi, glucose uncontrolled, latuns 20 bid, and high dose scale for ssi covernage now. DVT hep sq Diet carb consisent, renal DNR code status. Medical - PN: Qual - VTE Deep Vein Thrombosis/Pulmonary Embolism Present on Admission: No
[2017-11-16] MEDS: PIPERACILLIN SODIUM/TAZOBACTAM 2.25 GM in DEXTROSE 5% IN WATER 50 ML IV SCH ×2 (09:55→22:48)
[2017-11-16] MEDS ORDERED: DEXTROSE 50% 50 ML VIAL IV PRN (10:43)
[2017-11-16] MEDS ORDERED: DEXTROSE 31 GM ORAL.SUSP PO PRN (10:43)
[2017-11-16] MEDS ORDERED: ONDANSETRON 4 MG/2 ML VIAL IV PRN (10:43)
[2017-11-16] MEDS ORDERED: ACETAMINOPHEN 325 MG TABLET PO PRN (10:43)
[2017-11-16] MEDS ORDERED: VANCOMYCIN PER PHARMACY IV SCH (10:43)
[2017-11-16] MEDS ORDERED: BISACODYL 10 MG SUPP.RECT PR PRN (10:43)
[2017-11-16] MEDS ORDERED: diphenhydrAMINE 25 MG CAPSULE PO PRN (10:43)
--- NOTE | 2017-11-16 13:17 | Nephrology Progress Note ---
Subjective Patient information: Note initiated : 11/16/17 at 1:15 pm Service Date, if different from initiated Date: [] Patient: Stefan Merritt 77 y/o M admitted on 11/12/17 for SOB/Pneumonia, Hypoxic Resp Failure. Chief Complaint: More alert. Breathing is ok. Objective - Vital Signs Vital signs: Vital Signs Temp Pulse Pulse Resp BP Pulse Ox 11/16/17 12:09 98.8 F 70 18 124/110 95 11/16/17 11:23 70 14 95 11/16/17 09:01 18 159/79 95 11/16/17 08:01 98.2 F 18 176/100 96 11/16/17 07:34 79 15 11/16/17 07:30 96 11/16/17 07:05 81 18 93 11/16/17 07:01 72 18 169/73 94 11/16/17 06:01 71 166/81 97 11/16/17 05:01 72 166/83 96 11/16/17 05:00 73 12 96 11/16/17 04:01 98.2 F 24 H 158/79 88 L 11/16/17 03:30 88 20 11/16/17 03:03 24 H 172/94 90 11/16/17 02:08 81 13 91 11/16/17 02:01 17 147/99 11/16/17 01:30 72 14 93 11/16/17 01:03 92 H 17 161/143 86 L 11/16/17 01:01 19 187/88 11/16/17 00:01 98.0 F 17 166/78 11/16/17 00:00 88 24 H 11/15/17 23:40 91 H 18 11/15/17 23:01 80 17 163/81 96 11/15/17 22:01 82 13 133/76 94 11/15/17 21:23 76 21 127/85 95 11/15/17 20:56 16 118/68 11/15/17 20:50 27 H 121/76 11/15/17 20:47 25 H 100/77 11/15/17 20:43 16 92/69 11/15/17 20:41 142 H 15 66/41 95 11/15/17 20:37 14 87/47 11/15/17 20:32 126 H 21 109/66 96 07/02/18 20:25 20 102/71 0718 20:21 19 91/66 07//18 20:17 132 H 17 80/51 97 0702/18 20:10 131 H 24 H 114/74 97 18 20:06 58 L 16 99/73 96 //18 20:01 98.4 F 84 19 103/80 96 18 19:56 76 19 103/70 97 18 19:50 139 H 17 119/73 98 18 19:46 142 H 27 H 108/81 99 18 19:40 130 H 31 H 126/110 98 11/15/17 19:37 141 H 18 117/63 94 11/15/17 19:30 20 94 11/15/17 19:25 126 H 20 11/15/17 19:05 19 125/86 11/15/17 19:01 128 H 28 H 110/66 94 18 18:55 146 H 24 H 114/93 93 18 18:50 82 20 106/85 90 02/18 18:45 11 L 103/79 07/18 18:40 136 H 15 114/89 92 02/18 18:35 106 H 20 116/79 87 L 02/18 18:31 132 H 14 108/76 86 L 07/02/18 18:28 138 H 13 116/84 89 L /02/18 18:23 82 23 H 135/83 92 02/18 18:20 37 L 21 81/57 87 L 02/18 17:46 154 H 23 H 134/100 94 02/18 17:14 98.6 F 141 H 14 116/85 98 07/02/18 17:00 138 H 16 114/89 92 02/18 16:16 17 102/72 95 07/02/18 15:31 139 H 23 H 118/88 97 /02/18 15:29 140 H 16 07/02/18 15:22 95 /02/18 15:17 137 H 15 114/93 96 /02/18 15:09 99.1 F H 142 H 20 113/99 96 02/18 14:20 98.9 F 144 H 136/93 07/02/18 14:03 98.9 F 73 15 111/71 97 11/15/17 14:00 149 H 111/71 11/15/17 13:48 83 16 152/83 97 11/15/17 13:45 83 152/83 11/15/17 13:35 98.2 F 84 17 137/71 94 11/15/17 13:30 85 137/71 Intake and Output 11/15/17 11/16/17 11/16/17 21:59 05:59 13:59 Intake Total 649 / 649 350 / 350 180 / 180 Output Total 26212 0 / 0 Balance 350 / 350 180 / 180 Intake: IV 99 / 99 50 / 50 Sodium Chloride 0.9% 250 ml @ 49 / 49 20 mls/hr IV .[id number] [facility] Rx#: [id number] Zosyn 2.25 gm In Dextrose 5% in 50 / 50 50 / 50 Water 50 ml @ 100 mls/hr IV Q12H [facility] Rx#:[id number] Oral 240 / 240 300 / 300 180 / 180 Blood Product 310 / 310 Output: Void Amount 0 / 0 Hemodialysis UF 2622 / 2622 Other: Meal Dinner Breakfast Percent of Meal Consumed 50% 100% # Voids 0 # Bowel Movements 0 Weight 185 lb 8 oz Intake & Output: Intake & Output 11/15/17 11/16/17 11/16/17 21:59 05:59 13:59 Intake Total 649 / 649 350 / 350 180 / 180 Output Total 2621 / 2622 0 / 0 Balance 350 / 350 180 / 180 Weight 185 lb 8 oz Intake: IV 99 / 99 50 / 50 Sodium Chloride 0.9% 250 ml @ 49 / 49 20 mls/hr IV .[id number] [facility] Rx#: [id number] Zosyn 2.25 gm In Dextrose 5% in 50 / 50 50 / 50 Water 50 ml @ 100 mls/hr IV Q12H [facility] Rx#:[id number] Oral 240 / 240 300 / 300 180 / 180 Blood Product 310 / 310 Output: Void Amount 0 / 0 Hemodialysis UF 2622 / 2622 Other: Meal Dinner Breakfast Percent of Meal Consumed 50% 100% # Voids 0 # Bowel Movements 0 - General Appearance General appearance: well-developed, well-nourished EENT: ATNC Neck: no JVD Respiratory: no kyphosis Cardiology: no murmurs Gastrointestinal: normoactive bowel sounds Neurologic: no focal deficit - Lab 11/16/17 04:50 11/16/17 04:50 Most recent lab results Calcium 9.4 mg/dl (8.6-10.4) 11/16/17 04:50 Phosphorus 5.6 mg/dL (2.7-4.5) H 11/16/17 04:50 Magnesium 2.1 mg/dL (1.6-2.5) 11/16/17 04:50 Assessment and Plan (1) ESRD (end stage renal disease) on dialysis Status: Acute Comment: 1. Volume overload. He was dialysed Wednesday. Tolerated better. Will dialyse tomorrow. 2. Anemia. Got 2 units of prbc. 3. Hyperphos. Will start Tums with meals. 4. Confusion. Minimise narcotics.
[2017-11-16] MEDS ORDERED: INSULIN GLARGINE, HUMAN 1 UNIT/0.01 ML SQ SCH (21:00)
[2017-11-16] MEDS ORDERED: traZODone HCL 100 MG TABLET PO SCH (21:00)
[2017-11-16] MEDS: SIMVASTATIN 40 MG TABLET PO SCH (22:15)
[2017-11-16] MEDS: traZODone HCL 100 MG TABLET PO SCH (22:16)
[2017-11-17] MEDS: IPRATROPIUM/ALBUTEROL 3 ML AMPUL.NEB NEB SCH ×6 (02:34→23:34)
[2017-11-17] MEDS: methylPREDNISolone SOD SUCC 125 MG/2 ML VIAL IV SCH (05:50)
[2017-11-17] MEDS: 0.9 % SODIUM CHLORIDE 10 ML SYRINGE IV SCH ×5 (05:51→21:18)
[2017-11-17 07:41] LABS: Basophils # (Auto) 0 K/mcL (0.0-0.3); Basophils % (Auto) 0 % (0.0-2.0); Eosinophils # (Auto) 0 K/mcL (0.0-0.7); Eosinophils % (Auto) 0 % (0.0-7.0); Granulocytes % (Auto) 89.4 % (38.0-78.0); Lymphocytes # (Auto) 0.8 K/mcL (1.5-4.8); Lymphocytes % (Auto) 6.3 % (15.5-49.0); Mean Cell Volume 95.4 fL (80.0-100.0); Mean Corpuscular HGB Conc 33.4 g/dL (31.0-36.0); Mean Corpuscular Hemoglobin 31.9 pg (26.0-34.0); Monocytes # (Auto) 0.5 K/mcL (0.1-0.9); Monocytes % (Auto) 4.3 % (1.0-12.0); Platelet Count 147 K/mcL (140-440); RBC 2.88 M/mcL (4.50-5.90); Red Cell Distribution Width 17.2 % (11.5-14.5)
[2017-11-17 07:57] LABS: ALT/SGPT 14 U/l (0-40); Albumin 2.1 gm/dL (3.2-5.2); Albumin/Globulin Ratio 1.1 (1.0-2.3); Alkaline Phosphatase 42 U/L (39-117); Bilirubin,Direct < 0.2 mg/dL (0.0-0.3); Blood Urea Nitrogen 53 mg/dl (8-23); Gamma Glutamyl Transpeptidase 30 U/L (8-61); Uric Acid 3.8 mg/dL (2.5-8.0)
[2017-11-17] MEDS: LACTOBACILLUS 1 CAPSULE PO SCH ×2 (08:07→20:53)
[2017-11-17] MEDS: INSULIN GLARGINE, HUMAN 1 UNIT/0.01 ML SQ SCH ×2 (08:07→20:54)
[2017-11-17] MEDS: SENNOSIDES 1 TABLET PO SCH (08:07)
[2017-11-17] MEDS: INSULIN LISPRO 1 UNIT/0.01 ML UNIT SQ SCH ×4 (08:07→20:55)
[2017-11-17] MEDS: SEVELAMER 800 MG TABLET PO SCH ×4 (08:08→17:25)
[2017-11-17] MEDS: TAMSULOSIN 0.4 MG CAPSULE PO SCH (08:08)
[2017-11-17] MEDS: PANTOPRAZOLE 40 MG VIAL IV SCH ×2 (08:08→17:25)
[2017-11-17] MEDS: DOCUSATE SODIUM 100 MG CAPSULE PO SCH ×2 (08:08→20:53)
[2017-11-17] MEDS: CALCIUM CARBONATE 500 MG TAB.CHEW CHEWED SCH ×4 (08:08→17:25)
[2017-11-17] MEDS: HEPARIN 5,000 UNIT/ML VIAL SQ SCH ×2 (08:08→20:53)
[2017-11-17] MEDS: AMIODARONE HCL 200 MG TABLET PO SCH (08:09)
[2017-11-17] MEDS: LEVOTHYROXINE 100 MCG TABLET PO SCH (08:11)
[2017-11-17] MEDS: METOPROLOL TARTRATE 25 MG TABLET PO SCH ×3 (09:42→21:18)
[2017-11-17] MEDS: CLOPIDOGREL 75 MG TABLET PO SCH (09:44)
[2017-11-17] MEDS: ALLOPURINOL 300 MG TABLET PO SCH (09:47)
[2017-11-17] MEDS: PIPERACILLIN SODIUM/TAZOBACTAM 2.25 GM in DEXTROSE 5% IN WATER 50 ML IV SCH ×2 (09:47→20:55)
--- NOTE | 2017-11-17 10:24 | Internal Med Progress Note ---
Medical - PN: Subj Patient information: Note initiated : 11/17/17 at 10:22 am Service Date, if different from initiated Date: [] Patient: Stefan Merritt 77 y/o M admitted on 11/12/17 for SOB/Pneumonia, Hypoxic Resp Failure. Chief Complaint: [] Interval history: Mr. Merritt is a 77 year old Male with multiple medical issues, recently discharged from [facility] presents to the ER today for complaints of shortness of breath x 1 day. Pt is presently very short of breath, on bipap and is able to provide only limited history, most history from chart review. The patient was recently in [facility], had a protracted course, NSTEMI , s/p Stent, ESRd on HD, had PD cath which developed infection and he had peritonitis, He had Upper GI Bleed, duodenal ulcer, Small bowel obstruction and aspiration pneumonia. The patient was stabilized and discharged I believe on the to SNF. The patient became short of breath this AM as per the patient, he was taken to [facility] where they did an x ray and noted he has pna, started him on rocephin? he was already on cipro? Patient was sent back to SNf, where he was tachypneic and he was then sent to our ER for further evaluation. In our hospital the patient is febrile temp 101, Tachycardic with HR 136, bp normal but on the lower end, oxygen sat was low, significant tachypenia. X ray shows nimco basilar pneumonia, Right IJ EKG sinus tachy, left axis, qs in ant leads falttened t waves in lateral leads, labs show leucocytosis 12.6, procalcitonin 1.05, hb 8.4, plat 182, Na 137, K 3.7, bicat 2.6, creat 5.8, glucose 64 lactic acid 2.1 on abg Trop elevated at 1.17, it was 5.4 on 10/26/17 Cardiology was consulted on phone and Dr Lockhart at [facility] , who did not feel pt needs to be at [facility] or needed cardiolgoy intervention. (as per er provider) Patient is very tachypneic but saturating well after initiation of bipap, Dr Guzmán notified for need for dialysis, patient being admitted to the ICU for further management. 11/13 Patient seen and examined, on BiPAP tolerating the BiPAP well, mental status is better. He gets hypoxic and short of breath of the BiPAP. Bilateral wheezing present on exam. Chest x-ray done today shows CHF, improved infiltrates. Yesterday during dialysis the patient became hypotensive and therefore we were unable to remove much fluid. Myhcw-zh-arpa ultrasound showed that the patient had a dilated IVC but was collapsing appropriately with inspiration. Patient also had A. fib with RVR. IV amiodarone given with good rate control. 11/14 Patient seen and examined, overnight remains on BiPAP. This morning is short of breath, bilateral wheezing worse than yesterday. Chest x-ray shows worsening CHF. We had given the patient Lasix yesterday however it seems that it did not help much not make much urine. Contacted nephrology for need for dialysis today. Dialysis team aware and will dialyze the patient today. Patient reports that he has itching with amiodarone, and his smoking pipe maker said not to take it, I reviewed the previous hospital stay and it seems that the patient was on amiodarone during that hospital stay, he also tolerated amiodarone well besides some itching. I am not sure if his itching is truly related to use of amiodarone however I will consider switching this to an alternative agent should the patient desire. 11/15 Patient seen and examined, case reviewed with nephrology. The patient was confused and agitated last night needing Ativan. The patient this morning seems to be back to baseline however seems a bit more fidgety and anxious. He is going to get dialyzed again today. Exam shows persistent wheezing. Continue antibiotics labs are stable hemoglobin is 7.4 patient is agreeable to blood transfusion today we will give 2 units. 11/16 Patient seen examined, overnight was anxious, figidty, needed zyprexa no complaints this AM, still appears a bit anxious will give trazodone now, and again pm zpyrpexa qhs prn s/p hd yesterday, cxr today shows mild edema, will need another HD session tomorrow bipap prn microbiology neg so far hb improved to 10 7 pt doing well, slept well last night with trazodone, this AM [facility] for HD labs improving pt tolerating po diet well, has no acuet complaints. Pertinent ROS: Denies headache, dizziness Denies chest pain, palpitations Denies cough or shortness of breath Denies abdominal pain, nausea or vomiting. - Constitutional Vitals: Vital Signs Temp Pulse Resp BP Pulse Ox 97.7 F 63 20 134/70 95 11/17/17 09:21 11/17/17 10:05 11/17/17 07:29 11/17/17 10:05 11/17/17 07:30 Period Temp Pulse Resp BP Sys/Jean Pulse Ox Last 24 Hr 97.7 F-98.8 F 62-72 14-22 109-151/46-110 91-100 Intake and Output 11/16/17 11/17/17 11/17/17 21:59 05:59 13:59 Intake Total 100 / 100 260 / 260 Output Total 0 / 0 Balance 100 / 100 260 / 260 Weight 185 lb 8 oz 188 lb 7 oz Intake & Output: Intake & Output 11/16/17 11/17/17 11/17/17 21:59 05:59 13:59 Intake Total 100 / 100 260 / 260 Output Total 0 / 0 Balance 100 / 100 260 / 260 Weight 185 lb 8 oz 188 lb 7 oz Intake: IV 50 / 50 Zosyn 2.25 gm In Dextrose 5% in 50 / 50 Water 50 ml @ 100 mls/hr IV Q12H [facility] Rx#:[id number] Oral 100 / 100 210 / 210 Output: Void Amount 0 / 0 Other: Meal Dinner Percent of Meal Consumed 50% # Bowel Movements 0 Exam: Constitutional; Afebrile, cooperative, alert, not in distress. Respiratory system: Air Entry equal on both sides, bibasilar crackle present, proloned exp phase, mild exp wheezing present, unchanged from yesterday. CVS- Rate rhythm regular, S1,S2 heard, no gallop, no rub. Abdomen- Soft nontender abdomen, no organomegaly, no tenderness, no guarding or rigidity, ASSIST[employer]M [employer]- AOOx3, moving all extremities, no gross focal deficit noted. Medical - PN: Obj Da - Labs CBC & Chem 7: 11/17/17 03:53 11/17/17 03:53 Labs: Abnormal Lab Results 11/17/17 11/17/17 11/16/17 03:53 03:53 04:50 WBC 12.0 H 13.6 H RBC 2.88 L 3.04 L Hgb 9.2 L 10.0 L Hct 27.5 L 29.5 L RDW 17.2 H 17.0 H MPV 13.3 H 10.9 H Gran % 89.4 H 89.9 H Lymph % (Auto) 6.3 L 4.9 L Gran # 10.7 H 12.2 H Lymph # (Auto) 0.8 L 0.7 L Chloride Carbon Dioxide 19 L BUN 53 H Creatinine 4.6 H Glucose 172 H Calcium 6.4 L Phosphorus 4.8 H Total Bilirubin AST Lactate Dehydrogenase 328 H Total Protein 4.1 L Albumin 2.1 L Globulin 2.0 L Triglycerides TSH Free T3 pg/mL 11/16/17 11/15/17 11/15/17 04:50 18:16 18:16 WBC RBC Hgb Hct RDW MPV Gran % Lymph % (Auto) Gran # Lymph # (Auto) Chloride 93 L Carbon Dioxide BUN 44 H Creatinine 5.0 H Glucose 292 H Calcium Phosphorus 5.6 H Total Bilirubin 1.4 H AST 41 H Lactate Dehydrogenase 732 H Total Protein Albumin Globulin Triglycerides 184 H TSH 11.92 H Free T3 pg/mL 1.1 L 11/15/17 11/15/17 04:00 04:00 WBC 12.0 H RBC 2.31 L Hgb 7.4 L Hct 22.4 L RDW 16.7 H MPV 11.8 H Gran % 92.1 H Lymph % (Auto) 4.2 L Gran # 11.1 H Lymph # (Auto) 0.5 L Chloride 95 L Carbon Dioxide BUN 42 H Creatinine 4.7 H Glucose 254 H Calcium 8.5 L Phosphorus 5.5 H Total Bilirubin AST Lactate Dehydrogenase 251 H Total Protein 5.8 L Albumin 3.0 L Globulin Triglycerides 194 H TSH Free T3 pg/mL Meds: Medications Acetaminophen (Tylenol) 650 mg PO Q4-6HP PRN PRN Reason: PAIN/FEVER > 101 Albuterol/Ipratropium (Duoneb) 3 ml NEB Q4HRT [facility] Last Admin: 11/17/17 07:22 Dose: 3 ml Allopurinol (Zylopriim) 300 mg PO DAILY [facility] Last Admin: 11/17/17 09:47 Dose: Not Given Amiodarone HCl (Cordarone) 100 mg PO [facility] Last Admin: 11/17/17 08:09 Dose: 100 mg Bisacodyl (Dulcolax) 10 mg W[place] Q2-3DAYS PRN PRN Reason: Constipation Last Admin: 11/16/17 17:09 Dose: 10 mg Calcium Carbonate/Glycine (Tums) 1,500 mg CHEWED TIDCC [facility] Last Admin: 11/17/17 08:08 Dose: 1,500 mg Clopidogrel Bisulfate (Plavix) 75 mg PO DAILY [facility] Last Admin: 11/17/17 09:44 Dose: 75 mg Dextrose (Dextrose 50%) 0 ml IV UD PRN PRN Reason: Hypoglycemia Diagnostic Test (Pha) (Accu-Chek) 1 each FS ACHS [facility] Last Admin: 11/17/17 07:35 Dose: 1 each Diphenhydramine HCl (Benadryl) 25 mg PO HSP PRN PRN Reason: Insomnia Docusate Sodium (Colace) 100 mg PO BID [facility] Last Admin: 11/17/17 08:08 Dose: 100 mg Glucose (Insta-Glucose) 15 gm PO PRN PRN PRN Reason: Hypoglycemia Heparin Sodium (Porcine) (Heparin) 5,000 unit SQ Q12 [facility] Last Admin: 11/17/17 08:08 Dose: 5,000 unit Heparin Sodium (Porcine) (Heparin Flush) 2 ml IV Q12 [facility] Last Admin: 11/17/17 09:45 Dose: 2 ml Piperacillin Sod/Tazobactam (Sod 2.25 gm/ Dextrose) 50 mls @ 100 mls/hr IV Q12H [facility] Last Admin: 11/17/17 09:47 Dose: Not Given Vancomycin HCl 500 mg/ Sodium (Chloride) 100 mls @ 100 mls/hr IV 1300 ONE Stop: 11/17/17 13:59 Insulin Glargine (Lantus) 20 unit SQ BID [facility] Last Admin: 11/17/17 08:07 Dose: 20 unit Insulin Human Lispro (Humalog) 0 unit SQ ACHS [facility] PRN Reason: Protocol Last Admin: 11/17/17 08:07 Dose: 9 unit Lactobacillus Rhamnosus (Culturelle) 1 cap PO BID [facility] Last Admin: 11/17/17 08:07 Dose: 1 cap Levothyroxine Sodium (Synthroid) 200 mcg PO ACB [facility] Last Admin: 11/17/17 08:11 Dose: 200 mcg Methylprednisolone Sodium Succinate (Solu-Medrol) 62.5 mg IV Q8 [facility] Last Admin: 11/17/17 05:50 Dose: 62.5 mg Metoprolol Tartrate (Lopressor) 25 mg PO BID [facility] Last Admin: 11/17/17 09:42 Dose: Not Given Olanzapine (Zyprexa) 5 mg IM HSP PRN PRN Reason: Anxiety Ondansetron HCl (Zofran) 4 mg IV Q4-6HP PRN PRN Reason: Nausea And Vomiting Pantoprazole Sodium (Protonix) 40 mg IV BIDAC [facility] Last Admin: 11/17/17 08:08 Dose: 40 mg Senna (Senokot) 1 tab PO DAILY [facility] Last Admin: 11/17/17 08:07 Dose: 1 tab Sevelamer Carbonate (Renvela) 800 mg PO TIDCC [facility] Last Admin: 11/17/17 09:49 Dose: Not Given Simvastatin (Zocor) 40 mg PO HS [facility] Last Admin: 11/16/17 22:15 Dose: 40 mg Sodium Chloride (Saline Flush) 10 ml IV UD PRN PRN Reason: FLUSH Sodium Chloride (Saline Flush) 10 ml IV Q8 [facility] Last Admin: 11/17/17 05:51 Dose: 10 ml Sodium Chloride (Saline Flush) 10 ml IV Q12 [facility] Last Admin: 11/17/17 08:15 Dose: 10 ml Tamsulosin HCl (Flomax) 0.4 mg PO DAILY [facility] Last Admin: 11/17/17 08:08 Dose: 0.4 mg Trazodone HCl (Desyrel) 100 mg PO HS [facility] Last Admin: 11/16/17 22:16 Dose: 100 mg Vancomycin HCl (Vancomycin Per Pharmacy) 1 order IV [facility] Medical - PN: A/P - Time Spent With Patient Total time spent is greater than 50% in coordination of care (as documented) at patient's floor/unit and/or counseling patient: - Narrative A/P Narrative: A/P Acute Respiratory Failuire/ Hypoxic- off bipap, now ,wean off oxygen as tolerated. Acute copd exacerbation- steroids and duonebs, switch to oral steroids, wheezing still there, I think some fluid overload component is also contributing to pulmonary findings. Health care associated pneumonia/ Aspiration pneumonia- IV vanco and zosyn continue same , microbiology neg so far. H/o CAD s/p Recent Stent placement at [facility]- no chest pain, reviewed with cards in ER, no need for cardiology eval Acute systolic and Diastolic Heart failure- Not responding to lasix, fluid removal via HD. afib with rvr- not on AC as he has declined this, also recent h/o GIB pt does get afib with rvr post dialysis, on amiodraone, but still had issues, needing digoxing last time, will see how he does today will consider talking with a smoking pipe maker to see if there is any other medication we can try to help with this issue, need for ablation, switching to betapace? ESRD on Hemodialysis- HD per nephrology, scheduled today h/o Acute GI bleed this month- hb improved after 2 units appropriately, hb stable. h/o Recent small bowel obstruction- no issues at this time. h/o recent peritonitis- on broad spectrum abx DM/HTN/HLD- insulin for ssi, glucose uncontrolled, latuns 20 bid, and high dose scale for ssi covernage now. Anticipate improvement once we switch from IV to oral steroids. DVT hep sq Diet carb consisent, renal DNR code status. Medical - PN: Qual - VTE Deep Vein Thrombosis/Pulmonary Embolism Present on Admission: No
[2017-11-17] MEDS ORDERED: VANCOMYCIN 500 MG in 0.9 % SODIUM CHLORIDE 100 ML IV ONE (13:00)
[2017-11-17] MEDS ORDERED: MAGNESIUM SULFATE 2 GM/50 ML BAG IV ONE (14:43)
[2017-11-17] MEDS: 0.9 % SODIUM CHLORIDE 10 ML SYRINGE IV PRN ×2 (15:11→17:25)
[2017-11-17] MEDS: SIMVASTATIN 40 MG TABLET PO SCH (20:53)
[2017-11-17] MEDS: traZODone HCL 100 MG TABLET PO SCH (20:53)
[2017-11-18] MEDS: IPRATROPIUM/ALBUTEROL 3 ML AMPUL.NEB NEB SCH ×6 (03:03→22:35)
[2017-11-18 05:31] LABS: Basophils # (Auto) 0 K/mcL (0.0-0.3); Basophils % (Auto) 0 % (0.0-2.0); Eosinophils # (Auto) 0 K/mcL (0.0-0.7); Eosinophils % (Auto) 0 % (0.0-7.0); Granulocytes % (Auto) 87.2 % (38.0-78.0); Lymphocytes # (Auto) 0.9 K/mcL (1.5-4.8); Lymphocytes % (Auto) 6.6 % (15.5-49.0); Mean Cell Volume 96.4 fL (80.0-100.0); Mean Corpuscular HGB Conc 33.8 g/dL (31.0-36.0); Mean Corpuscular Hemoglobin 32.6 pg (26.0-34.0); Monocytes # (Auto) 0.8 K/mcL (0.1-0.9); Monocytes % (Auto) 6.2 % (1.0-12.0); Platelet Count 154 K/mcL (140-440); RBC 3.21 M/mcL (4.50-5.90); Red Cell Distribution Width 16.4 % (11.5-14.5)
[2017-11-18 06:50] LABS: ALT/SGPT 23 U/l (0-40); Albumin 2.9 gm/dL (3.2-5.2); Alkaline Phosphatase 67 U/L (39-117); Bilirubin,Direct < 0.2 mg/dL (0.0-0.3); Blood Urea Nitrogen 53 mg/dl (8-23); Gamma Glutamyl Transpeptidase 51 U/L (8-61); Uric Acid 4.5 mg/dL (2.5-8.0)
[2017-11-18] MEDS: PANTOPRAZOLE 40 MG VIAL IV SCH ×2 (07:42→17:27)
[2017-11-18] MEDS: LEVOTHYROXINE 100 MCG TABLET PO SCH (07:42)
[2017-11-18] MEDS: 0.9 % SODIUM CHLORIDE 10 ML SYRINGE IV PRN (07:42)
[2017-11-18] MEDS: 0.9 % SODIUM CHLORIDE 10 ML SYRINGE IV SCH ×5 (07:43→22:44)
[2017-11-18] MEDS ORDERED: predniSONE 20 MG TABLET PO SCH (08:00)
[2017-11-18] MEDS: INSULIN LISPRO 1 UNIT/0.01 ML UNIT SQ SCH ×4 (08:28→21:07)
[2017-11-18] MEDS: INSULIN GLARGINE, HUMAN 1 UNIT/0.01 ML SQ SCH ×2 (08:28→21:43)
[2017-11-18] MEDS: METOPROLOL TARTRATE 25 MG TABLET PO SCH ×2 (08:29→21:43)
[2017-11-18] MEDS: DOCUSATE SODIUM 100 MG CAPSULE PO SCH ×2 (08:29→21:41)
[2017-11-18] MEDS: CLOPIDOGREL 75 MG TABLET PO SCH (08:29)
[2017-11-18] MEDS: TAMSULOSIN 0.4 MG CAPSULE PO SCH (08:30)
[2017-11-18] MEDS: LACTOBACILLUS 1 CAPSULE PO SCH ×2 (08:30→21:41)
[2017-11-18] MEDS: SENNOSIDES 1 TABLET PO SCH (08:30)
[2017-11-18] MEDS: AMIODARONE HCL 200 MG TABLET PO SCH (08:30)
[2017-11-18] MEDS: ALLOPURINOL 300 MG TABLET PO SCH ×2 (08:30→13:52)
[2017-11-18] MEDS: HEPARIN 5,000 UNIT/ML VIAL SQ SCH ×2 (08:32→21:41)
[2017-11-18] MEDS: PIPERACILLIN SODIUM/TAZOBACTAM 2.25 GM in DEXTROSE 5% IN WATER 50 ML IV SCH ×2 (10:19→21:45)
--- NOTE | 2017-11-18 10:56 | Internal Med Progress Note ---
Medical - PN: Subj Patient information: Note initiated : 11/18/17 at 10:54 am Service Date, if different from initiated Date: [] Patient: Stefan Merritt 77 y/o M admitted on 11/12/17 for SOB/Pneumonia, Hypoxic Resp Failure. Chief Complaint: [] Interval history: Mr. Merritt is a 77 year old Male with multiple medical issues, recently discharged from [facility] presents to the ER today for complaints of shortness of breath x 1 day. Pt is presently very short of breath, on bipap and is able to provide only limited history, most history from chart review. The patient was recently in [facility], had a protracted course, NSTEMI , s/p Stent, ESRd on HD, had PD cath which developed infection and he had peritonitis, He had Upper GI Bleed, duodenal ulcer, Small bowel obstruction and aspiration pneumonia. The patient was stabilized and discharged I believe on the to SNF. The patient became short of breath this AM as per the patient, he was taken to [facility] where they did an x ray and noted he has pna, started him on rocephin? he was already on cipro? Patient was sent back to SNf, where he was tachypneic and he was then sent to our ER for further evaluation. In our hospital the patient is febrile temp 101, Tachycardic with HR 136, bp normal but on the lower end, oxygen sat was low, significant tachypenia. X ray shows nimco basilar pneumonia, Right IJ EKG sinus tachy, left axis, qs in ant leads falttened t waves in lateral leads, labs show leucocytosis 12.6, procalcitonin 1.05, hb 8.4, plat 182, Na 137, K 3.7, bicat 2.6, creat 5.8, glucose 64 lactic acid 2.1 on abg Trop elevated at 1.17, it was 5.4 on 10/26/17 Cardiology was consulted on phone and Dr Lockhart at [facility] , who did not feel pt needs to be at [facility] or needed cardiolgoy intervention. (as per er provider) Patient is very tachypneic but saturating well after initiation of bipap, Dr Guzmán notified for need for dialysis, patient being admitted to the ICU for further management. 11/13 Patient seen and examined, on BiPAP tolerating the BiPAP well, mental status is better. He gets hypoxic and short of breath of the BiPAP. Bilateral wheezing present on exam. Chest x-ray done today shows CHF, improved infiltrates. Yesterday during dialysis the patient became hypotensive and therefore we were unable to remove much fluid. [id number] ultrasound showed that the patient had a dilated IVC but was collapsing appropriately with inspiration. Patient also had A. fib with RVR. IV amiodarone given with good rate control. 11/14 Patient seen and examined, overnight remains on BiPAP. This morning is short of breath, bilateral wheezing worse than yesterday. Chest x-ray shows worsening CHF. We had given the patient Lasix yesterday however it seems that it did not help much not make much urine. Contacted nephrology for need for dialysis today. Dialysis team aware and will dialyze the patient today. Patient reports that he has itching with amiodarone, and his cotton picking machine operator said not to take it, I reviewed the previous hospital stay and it seems that the patient was on amiodarone during that hospital stay, he also tolerated amiodarone well besides some itching. I am not sure if his itching is truly related to use of amiodarone however I will consider switching this to an alternative agent should the patient desire. 11/15 Patient seen and examined, case reviewed with nephrology. The patient was confused and agitated last night needing Ativan. The patient this morning seems to be back to baseline however seems a bit more fidgety and anxious. He is going to get dialyzed again today. Exam shows persistent wheezing. Continue antibiotics labs are stable hemoglobin is 7.4 patient is agreeable to blood transfusion today we will give 2 units. 11/16 Patient seen examined, overnight was anxious, figidty, needed zyprexa no complaints this AM, still appears a bit anxious will give trazodone now, and again pm zpyrpexa qhs prn s/p hd yesterday, cxr today shows mild edema, will need another HD session tomorrow bipap prn microbiology neg so far hb improved to 10 11/17 pt doing well, slept well last night with trazodone, this AM [facility] for HD labs improving pt tolerating po diet well, has no acuet complaints. 11/18 Pt seen examined, no acute overnight issues, pt tolerating po diet well still has some oxygen needs, weak exam shows mild wheeze and prolonged exp phase no afib after HD yesterday labs stable xfer to med surg Pertinent ROS: Denies headache, dizziness Denies chest pain, palpitations Denies cough or shortness of breath Denies abdominal pain, nausea or vomiting. - Constitutional Vitals: Vital Signs Temp Pulse Resp BP Pulse Ox 97.7 F 56 L 16 106/55 96 11/18/17 04:01 11/18/17 07:12 11/18/17 07:12 11/18/17 04:01 11/18/17 07:12 Period Temp Pulse Resp BP Sys/Jean Pulse Ox Last 24 Hr 97 F-98.9 F 55-81 13-16 85-144/55-82 93-98 Intake and Output 11/17/17 11/18/17 11/18/17 21:59 05:59 13:59 Intake Total 300 / 300 0 / 0 Output Total 0 / 0 Balance 300 / 300 0 / 0 Weight 175 lb 8 oz Intake & Output: Intake & Output 11/17/17 11/18/17 11/18/17 21:59 05:59 13:59 Intake Total 300 / 300 0 / 0 Output Total 0 / 0 Balance 300 / 300 0 / 0 Weight 175 lb 8 oz Intake: IV 200 / 200 Zosyn 2.25 gm In Dextrose 5% in 50 / 50 Water 50 ml @ 100 mls/hr IV Q12H [facility] Rx#:[id number] Vancomycin 500 mg In Sodium 100 / 100 Chloride 0.9% 100 ml @ 100 mls/ hr IV 1300 [facility] Rx#:[id number] Oral 100 / 100 0 / 0 Output: Void Amount 0 / 0 Other: Meal Dinner hs snack Percent of Meal Consumed 50% 75% Feeding Ability Assist with Tray Set Up Independent # Bowel Movements 0 Exam: Constitutional; Afebrile, cooperative, alert, not in distress. Eyes- No icterus, , No periorbital swelling Ears- Ext ear normal, hearing normal to conversation. Neck- Midline trachea, supple Respiratory system: Air Entry equal on both sides, bibasilar crackles, prolonged exp phase, air entry better than yesterday, wheezing better than yesterday CVS- Rate rhythm regular, S1,S2 heard, no gallop, no rub. Abdomen- Soft nontender abdomen, no organomegaly, no tenderness, no guarding or rigidity, LICENSED PROSTHETIST/ORTHOTIST- AOOx2, moving all extremities, no gross focal deficit noted. Medical - PN: Obj Da - Labs CBC & Chem 7: 11/18/17 03:35 11/18/17 03:35 Labs: Abnormal Lab Results 11/18/17 11/18/17 11/17/17 03:35 03:35 03:53 WBC 13.6 H RBC 3.21 L Hgb 10.5 L Hct 31.0 L RDW 16.4 H MPV 12.1 H Gran % 87.2 H Lymph % (Auto) 6.6 L Gran # 11.9 H Lymph # (Auto) 0.9 L Chloride Carbon Dioxide 19 L BUN 53 H 53 H Creatinine 5.3 H* 4.6 H Glucose 143 H 172 H Calcium 6.4 L Phosphorus 5.8 H 4.8 H Magnesium 2.7 H Total Bilirubin AST Lactate Dehydrogenase 415 H 328 H Total Protein 5.7 L 4.1 L Albumin 2.9 L 2.1 L Globulin 2.0 L Triglycerides 198 H TSH Free T3 pg/mL 11/17/17 11/16/17 11/16/17 03:53 04:50 04:50 WBC 12.0 H 13.6 H RBC 2.88 L 3.04 L Hgb 9.2 L 10.0 L Hct 27.5 L 29.5 L RDW 17.2 H 17.0 H MPV 13.3 H 10.9 H Gran % 89.4 H 89.9 H Lymph % (Auto) 6.3 L 4.9 L Gran # 10.7 H 12.2 H Lymph # (Auto) 0.8 L 0.7 L Chloride 93 L Carbon Dioxide BUN 44 H Creatinine 5.0 H Glucose 292 H Calcium Phosphorus 5.6 H Magnesium Total Bilirubin 1.4 H AST 41 H Lactate Dehydrogenase 732 H Total Protein Albumin Globulin Triglycerides 184 H TSH Free T3 pg/mL 11/15/17 11/15/17 18:16 18:16 WBC RBC Hgb Hct RDW MPV Gran % Lymph % (Auto) Gran # Lymph # (Auto) Chloride Carbon Dioxide BUN Creatinine Glucose Calcium Phosphorus Magnesium Total Bilirubin AST Lactate Dehydrogenase Total Protein Albumin Globulin Triglycerides TSH 11.92 H Free T3 pg/mL 1.1 L Meds: Medications Acetaminophen (Tylenol) 650 mg PO Q4-6HP PRN PRN Reason: PAIN/FEVER > 101 Albuterol/Ipratropium (Duoneb) 3 ml NEB Q4HRT [facility] Last Admin: 11/18/17 06:50 Dose: 3 ml Allopurinol (Zylopriim) 300 mg PO DAILY [facility] Last Admin: 11/18/17 08:30 Dose: 300 mg Amiodarone HCl (Cordarone) 100 mg PO QAMCC [facility] Last Admin: 11/18/17 08:30 Dose: 100 mg Bisacodyl (Dulcolax) 10 mg GA Q2-3DAYS PRN PRN Reason: Constipation Last Admin: 11/16/17 17:09 Dose: 10 mg Calcium Carbonate/Glycine (Tums) 1,500 mg CHEWED TIDCC [facility] Last Admin: 11/18/17 08:29 Dose: 1,500 mg Clopidogrel Bisulfate (Plavix) 75 mg PO DAILY [facility] Last Admin: 11/18/17 08:29 Dose: 75 mg Dextrose (Dextrose 50%) 0 ml IV UD PRN PRN Reason: Hypoglycemia Diagnostic Test (Pha) (Accu-Chek) 1 each FS ACHS [facility] Last Admin: 11/18/17 07:50 Dose: 1 each Diphenhydramine HCl (Benadryl) 25 mg PO HSP PRN PRN Reason: Insomnia Docusate Sodium (Colace) 100 mg PO BID [facility] Last Admin: 11/18/17 08:29 Dose: 100 mg Glucose (Insta-Glucose) 15 gm PO PRN PRN PRN Reason: Hypoglycemia Heparin Sodium (Porcine) (Heparin) 5,000 unit SQ Q12 [facility] Last Admin: 11/18/17 08:32 Dose: 5,000 unit Heparin Sodium (Porcine) (Heparin Flush) 2 ml IV Q12 [facility] Last Admin: 11/18/17 10:20 Dose: 2 ml Piperacillin Sod/Tazobactam (Sod 2.25 gm/ Dextrose) 50 mls @ 100 mls/hr IV Q12H [facility] Last Admin: 11/18/17 10:19 Dose: 100 mls/hr Insulin Glargine (Lantus) 20 unit SQ BID [facility] Last Admin: 11/18/17 08:28 Dose: 20 unit Insulin Human Lispro (Humalog) 0 unit SQ [facility] PRN Reason: Protocol Last Admin: 11/18/17 08:28 Dose: 3 unit Lactobacillus Rhamnosus (Culturelle) 1 cap PO BID [facility] Last Admin: 11/18/17 08:30 Dose: 1 cap Levothyroxine Sodium (Synthroid) 200 mcg PO ACB [facility] Last Admin: 11/18/17 07:42 Dose: 200 mcg Metoprolol Tartrate (Lopressor) 25 mg PO BID [facility] Last Admin: 11/18/17 08:29 Dose: 25 mg Olanzapine (Zyprexa) 5 mg IM HSP PRN PRN Reason: Anxiety Ondansetron HCl (Zofran) 4 mg IV Q4-6HP PRN PRN Reason: Nausea And Vomiting Pantoprazole Sodium (Protonix) 40 mg IV BIDAC [facility] Last Admin: 11/18/17 07:42 Dose: 40 mg Prednisone (Prednisone) 40 mg PO QAMCC [facility] Last Admin: 11/18/17 08:29 Dose: 40 mg Senna (Senokot) 1 tab PO DAILY [facility] Last Admin: 11/18/17 08:30 Dose: 1 tab Sevelamer Carbonate (Renvela) 800 mg PO TIDCC [facility] Last Admin: 11/18/17 08:30 Dose: 800 mg Simvastatin (Zocor) 40 mg PO HS [facility] Last Admin: 11/17/17 20:53 Dose: 40 mg Sodium Chloride (Saline Flush) 10 ml IV UD PRN PRN Reason: FLUSH Last Admin: 11/18/17 07:42 Dose: 10 ml Sodium Chloride (Saline Flush) 10 ml IV Q8 [facility] Last Admin: 11/18/17 07:43 Dose: 10 ml Sodium Chloride (Saline Flush) 10 ml IV Q12 [facility] Last Admin: 11/18/17 10:19 Dose: 10 ml Tamsulosin HCl (Flomax) 0.4 mg PO DAILY [facility] Last Admin: 11/18/17 08:30 Dose: 0.4 mg Trazodone HCl (Desyrel) 100 mg PO [facility] Last Admin: 11/17/17 20:53 Dose: 100 mg Vancomycin HCl (Vancomycin Per Pharmacy) 1 order IV UD [facility] Medical - PN: A/P - Time Spent With Patient Total time spent is greater than 50% in coordination of care (as documented) at patient's floor/unit and/or counseling patient: - Narrative A/P Narrative: A/P Acute Respiratory Failure/ Hypoxic- off bipap, now ,wean off oxygen as tolerated. Acute copd exacerbation- on oral prednisone and duonebs, patient will benefit from a steroid taper at discharge. Health care associated pneumonia/ Aspiration pneumonia- IV vanco and zosyn continue same , microbiology neg so far. d6 today, H/o CAD s/p Recent Stent placement at [facility]- no chest pain, reviewed with cards in ER, no need for cardiology eval Acute systolic and Diastolic Heart failure- Not responding to lasix, fluid removal via HD. afib with rvr- not on AC as he has declined this, also recent h/o GIB pt does get afib with rvr post dialysis, on amiodarone, but still had issues, needing digoxin last time, yesterday he had HD without any afib with rvr consider talking with a cotton picking machine operator to see if there is any other medication we can try to help with this issue, need for ablation, switching to betapace? ESRD on Hemodialysis- HD per nephrology, h/o Acute GI bleed this month- hb improved after 2 units appropriately, hb stable. h/o Recent small bowel obstruction- no issues at this time. h/o recent peritonitis- on broad spectrum abx DM/HTN/HLD- insulin for ssi, glucose uncontrolled, latus 20 bid, and high dose scale for ssi covernage now. Anticipate improvement once we switch from IV to oral steroids. DVT hep sq Diet carb consistent, renal DNR code status. anticipate d/c to snf tomorrow. Medical - PN: Qual - VTE Deep Vein Thrombosis/Pulmonary Embolism Present on Admission: No
[2017-11-18] MEDS: SEVELAMER 800 MG TABLET PO SCH ×4 (12:20→17:27)
[2017-11-18] MEDS: CALCIUM CARBONATE 500 MG TAB.CHEW CHEWED SCH ×4 (12:20→17:37)
[2017-11-18] MEDS ORDERED: VANCOMYCIN PER PHARMACY IV SCH (12:25)
[2017-11-18] MEDS ORDERED: ONDANSETRON 4 MG/2 ML VIAL IV PRN (12:25)
[2017-11-18] MEDS ORDERED: OLANZapine 10 MG VIAL IM PRN (12:25)
[2017-11-18] MEDS ORDERED: 0.9 % SODIUM CHLORIDE 10 ML SYRINGE IV PRN (12:25)
[2017-11-18] MEDS ORDERED: ACETAMINOPHEN 325 MG TABLET PO PRN (12:25)
[2017-11-18] MEDS ORDERED: DEXTROSE 50% 50 ML VIAL IV PRN (12:25)
[2017-11-18] MEDS ORDERED: DEXTROSE 31 GM ORAL.SUSP PO PRN (12:25)
[2017-11-18] MEDS ORDERED: BISACODYL 10 MG SUPP.RECT PR PRN (12:25)
[2017-11-18] MEDS ORDERED: diphenhydrAMINE 25 MG CAPSULE PO PRN (12:25)
[2017-11-18] MEDS ORDERED: traZODone HCL 100 MG TABLET PO SCH (21:00)
[2017-11-18] MEDS ORDERED: SIMVASTATIN 40 MG TABLET PO SCH (21:00)
--- NOTE | 2017-11-18 21:57 | Nephrology Progress Note ---
Subjective Patient information: Note initiated : 11/18/17 at 9:55 pm Service Date, if different from initiated Date: [] Patient: Stefan Merritt 77 y/o M admitted on 11/12/17 for SOB/Pneumonia, Hypoxic Resp Failure. Chief Complaint: Feels better. Denies any pain or shortness of breath. Has been doing PT. Objective - Vital Signs Vital signs: Vital Signs Temp Pulse Pulse Resp BP BP Pulse Ox 11/18/17 20:00 97.6 F 57 L 18 107/54 90 11/18/17 19:19 60 14 93 11/18/17 19:16 62 12 11/18/17 15:58 62 12 94 11/18/17 15:57 63 10 L 11/18/17 12:06 97.9 F 63 18 135/74 91 11/18/17 11:15 57 L 96 11/18/17 11:05 60 18 11/18/17 10:45 58 L 93 11/18/17 10:15 56 L 95 11/18/17 09:45 59 L 96 11/18/17 09:30 57 L 94 11/18/17 09:15 57 L 94 11/18/17 09:00 70 95 11/18/17 08:30 67 94 11/18/17 08:15 65 91 11/18/17 08:01 98.1 F 66 109/53 91 11/18/17 08:00 68 91 11/18/17 07:45 68 94 11/18/17 07:30 64 86 L 11/18/17 07:15 61 90 11/18/17 07:12 56 L 16 96 11/18/17 07:00 62 95 11/18/17 06:50 55 L 16 11/18/17 06:45 55 L 94 11/18/17 06:30 57 L 93 11/18/17 06:15 56 L 92 11/18/17 04:01 97.7 F 59 L 14 106/55 93 11/18/17 03:03 62 16 11/18/17 02:40 58 L 135/60 97 11/18/17 00:00 58 L 134/64 94 11/17/17 22:46 55 L 115/69 94 Intake and Output 11/18/17 11/18/17 11/18/17 05:59 13:59 21:59 Intake Total 0 / 0 250 / 250 120 / 120 Output Total 0 / 0 Balance 0 / 0 250 / 250 120 / 120 Intake: IV 50 / 50 Zosyn 2.25 gm In Dextrose 5% in 50 / 50 Water 50 ml @ 100 mls/hr IV Q12H [facility] Rx#:[id number] Oral 0 / 0 200 / 200 120 / 120 Output: Void Amount 0 / 0 Other: Meal hs snack Lunch Dinner Percent of Meal Consumed 75% a few bite 50% Feeding Ability Independent Assist with Tray Set Up Independent # Bowel Movements 0 Weight 177 lb 8 oz Patient Weight 11/19/17 05:59 Weight 177 lb 8 oz Intake & Output: Intake & Output 11/18/17 11/18/17 11/18/17 05:59 13:59 21:59 Intake Total 0 / 0 250 / 250 120 / 120 Output Total 0 / 0 Balance 0 / 0 250 / 250 120 / 120 Weight 177 lb 8 oz Intake: IV 50 / 50 Zosyn 2.25 gm In Dextrose 5% in 50 / 50 Water 50 ml @ 100 mls/hr IV Q12H [facility] Rx#:[id number] Oral 0 / 0 200 / 200 120 / 120 Output: Void Amount 0 / 0 Other: Meal hs snack Lunch Dinner Percent of Meal Consumed 75% a few bite 50% Feeding Ability Independent Assist with Tray Set Up Independent # Bowel Movements 0 - General Appearance General appearance: well-developed EENT: ATNC Neck: no JVD Cardiology: no murmurs Gastrointestinal: normoactive bowel sounds Integumentary: no rash Neurologic: no focal deficit Musculoskeletal: no deformities - Lab 11/18/17 03:35 11/18/17 03:35 Most recent lab results Calcium 8.9 mg/dl (8.6-10.4) 11/18/17 03:35 Phosphorus 5.8 mg/dL (2.7-4.5) H 11/18/17 03:35 Magnesium 2.7 mg/dL (1.6-2.5) H 11/18/17 03:35 Assessment and Plan (1) ESRD (end stage renal disease) on dialysis Status: Acute Comment: 1. Volume overload. He was dialysed Wednesday. Tolerated better. Will dialyse tomorrow. 2. Anemia. Got 2 units of prbc. 3. Hyperphos. On Tums with meals. 4. Confusion. Minimise narcotics. Getting better.
[2017-11-19] MEDS: IPRATROPIUM/ALBUTEROL 3 ML AMPUL.NEB NEB SCH ×3 (03:17→11:30)
[2017-11-19] MEDS: 0.9 % SODIUM CHLORIDE 10 ML SYRINGE IV SCH ×2 (05:15→13:55)
--- NOTE | 2017-11-19 06:48 | XRay Report ---
INDICATION: Pneumonia. Congestive heart failure. TECHNIQUE: AP chest x-ray, portable semiupright COMPARISON: Chest x-rays dated 11/16/2017, 11/14/2017, 11/13/2017 FINDINGS: No change in right central venous catheter position. There is a left-sided PICC line in the superior vena cava. Findings consistent with pulmonary congestion are stable. There is bilateral, bibasilar parenchymal density. Pneumonia is possible. These findings are slightly worse. Continued follow-up recommended. Pleural fluid is not excluded. No other interval change. IMPRESSION: 1. Mild bibasilar pulmonary parenchymal density appears slightly worse. Pneumonia is possible. 2. Findings remain consistent with pulmonary congestion, unchanged Interpreted and Authenticated by: Dre Walker 11/19/17
[2017-11-19] MEDS: PANTOPRAZOLE 40 MG VIAL IV SCH (07:18)
[2017-11-19] MEDS ORDERED: LEVOTHYROXINE 100 MCG TABLET PO SCH (07:30)
[2017-11-19] MEDS: INSULIN LISPRO 1 UNIT/0.01 ML UNIT SQ SCH ×2 (07:51→13:10)
[2017-11-19 09:13] LABS: Vancomycin,Random 21.3 ug/mL
[2017-11-19] MEDS ORDERED: MIDODRINE 5 MG TABLET PO PRN (10:00)
[2017-11-19 10:18] LABS: Basophils # (Auto) 0 K/mcL (0.0-0.3); Basophils % (Auto) 0 % (0.0-2.0); Eosinophils # (Auto) 0 K/mcL (0.0-0.7); Eosinophils % (Auto) 0.1 % (0.0-7.0); Lymphocytes # (Auto) 0.7 K/mcL (1.5-4.8); Lymphocytes % (Auto) 6.4 % (15.5-49.0); Mean Cell Volume 94.8 fL (80.0-100.0); Mean Corpuscular HGB Conc 33.8 g/dL (31.0-36.0); Monocytes # (Auto) 0.7 K/mcL (0.1-0.9); Monocytes % (Auto) 6.5 % (1.0-12.0); Platelet Count 138 K/mcL (140-440); RBC 3.19 M/mcL (4.50-5.90); Red Cell Distribution Width 16.2 % (11.5-14.5)
[2017-11-19 10:35] LABS: ALT/SGPT 26 U/l (0-40); Albumin 2.6 gm/dL (3.2-5.2); Alkaline Phosphatase 59 U/L (39-117); Blood Urea Nitrogen 80 mg/dl (8-23)
[2017-11-19 11:00] LABS: Erythrocyte Sedimentation Rate 28 mm/hr (0-15)
--- NOTE | 2017-11-19 12:35 | Discharge Summary ---
Medical - DS: Prov Patient information: Note initiated : 11/19/17 at 12:33 pm Service Date, if different from initiated Date: [] Patient: Stefan Merritt 77 y/o M admitted on 11/12/17 for SOB/Pneumonia, Hypoxic Resp Failure. Chief Complaint: [] Date of admission: 11/12/17 13:26 Discharge date: 11/19/17 (back to correction facility) Primary care physician: Shen Elias Admitting clinician: Tiffany Kiser Attending physician on admission: Tiffany Kiser Consults: 11/12/17 12:19 Consult to Physician [CONS] Stat Comment: Consulting Provider: Tiffany Kiser Reason For Exam: Physician to Consult 11/12/17 13:37 Consult to Physician [CONS] Stat Comment: Consulting Provider: Virgil Guzmán Reason For Exam: Physician to Consult Attending physician on discharge: Saige Kay Discharging clinician: Saige Kay Medical - DS: Meds - Discharge Medications Prescriptions: Acetaminophen [Tylenol] 650 mg PO Q4-6HP PRN #30 tab PRN Reason: Pain/Fever > 101 Insulin Aspart [Novolog] 100 unit SQ ACHS #1 ml Insulin Glargine,Hum.rec.anlog [Toujeo Solostar] 20 unit SQ BID #1 insuln.pen methylPREDNISolone [Medrol Dose Pack] 1 packet PO DAILY #1 tab Metoprolol Succinate [Toprol Xl] 25 mg PO BID #30 tab.xl.24h Pantoprazole [Protonix] 40 mg PO BIDAC #30 tab Piperacillin Sodium/Tazobactam [Zosyn] 2.25 gm IV Q12H 10 Days #20 vial Vancomycin/0.9 % Sod Chloride [Vancomycin 1 G/100Ml-0.9% NaCl] 1 gm IV Q4D #2 plast..bag Active and Home Medications: Home Medications Allopurinol [Zylopriim] 300 mg PO DAILY 04/09/15 [History Confirmed 11/12/17 Last Taken Unknown] Levothyroxine [Synthroid] 200 mcg PO QAMAC 04/09/15 [History Confirmed 11/12/17 Last Taken Unknown] Nitroglycerin [Nitrostat] 0.4 mg SL Q5M PRN 04/09/15 [History Confirmed Last Taken Unknown] Pettigrew-3 Fatty Acids/Fish Oil [Fish Oil 1,000 mg Softgel] 1 capsule PO DAILY [History Confirmed 11/12/17 Last Taken Unknown] Tamsulosin [Flomax] 0.4 mg PO DAILY 04/09/15 [History Confirmed 11/12/17 Last Taken Unknown] Vitamin D3 4,000 unit PO DAILY 04/09/15 [History Confirmed 11/12/17 Last Taken Unknown] glipiZIDE [Glucotrol] 10 mg PO QAMAC 04/09/15 [History Confirmed 11/12/17 Last Taken Unknown] Amiodarone HCl [Pacerone] 100 mg PO DAILY 11/12/17 [History Confirmed 11/12/17 Last Taken Unknown] Aspirin 81 mg PO DAILY 11/12/17 [History Confirmed 11/12/17 Last Taken Unknown] Clopidogrel Bisulfate [Plavix] 75 mg PO DAILY 11/12/17 [History Confirmed Last Taken Unknown] Ferrous Sulfate 325 mg PO QAMCC 11/12/17 [History Confirmed 11/12/17 Last Taken Unknown] Furosemide [Lasix] 80 mg PO DAILY 11/12/17 [History Confirmed 11/12/17 Last Taken Unknown] Insulin Aspart [Novolog Flexpen] 0 unit SQ ACHS 11/12/17 [History Confirmed Last Taken Unknown] Insulin Glargine,Hum.rec.anlog [Toujeo Solostar] 15 unit SQ BID 11/12/17 [ History Confirmed 11/12/17 Last Taken Unknown] Ipratropium/Albuterol [Duoneb] 3 ml NEB Q6HP PRN 11/12/17 [History Confirmed Last Taken Unknown] Lisinopril [Zestril] 2.5 mg PO DAILY 11/12/17 [History Confirmed 11/12/17 Last Taken Unknown] Metoprolol Succinate [Toprol Xl] 12.5 mg PO DAILY 11/12/17 [History Confirmed Last Taken Unknown] Midodrine [Midodrine HCl] 5 mg PO BID 11/12/17 [History Confirmed 11/12/17 Last Taken Unknown] Multivit,Ther Iron,Ca,FA & Min [Multivitamin W/Minerals] 1 tab PO DAILY [History Confirmed 11/12/17 Last Taken Unknown] Nystatin [Kenalog] 1 dose TOPICAL Q6H 11/12/17 [History Confirmed 11/12/17 Last Taken Unknown] Pantoprazole [Protonix] 40 mg PO QAMAC 11/12/17 [History Confirmed 11/12/17 Last Taken Unknown] Saccharomyces Boulardii [Florastor] 250 mg PO BID 11/12/17 [History Confirmed Last Taken Unknown] Sevelamer [Renvela] 800 mg PO TIDCC 11/12/17 [History Confirmed 11/12/17 Last Taken Unknown] Simvastatin [Zocor] 40 mg PO HS 11/12/17 [History Confirmed 11/12/17 Last Taken Unknown] Vitamin E (Dl,Tocopheryl Acet) [Vitamin E] 400 unit PO DAILY 11/12/17 [History Confirmed 11/12/17 Last Taken Unknown] Medical - DS: Hosp Hospital course: Mr. Merritt is a 77 year old M admitted on 11/12/17 for SOB/Pneumonia, Hypoxic Resp Failure. He has multiple medical issues and was recently discharged to SNF from [facility]. He presented to the ER for complaints of shortness of breath x 1 day. . Pt was evaluated by Dr Kiser, was very short of breath, on bipap and is able to provide only limited history, most history from chart review. Please see Dr Kiser's admission H&P for further details He was recently in [facility], had a protracted course, NSTEMI, s/p Stent, ESRd on HD, had PD cath which developed infection and he had peritonitis , He had Upper GI Bleed, duodenal ulcer, Small bowel obstruction and aspiration pneumonia. He was stabilized and discharged on the to [facility]. Early on the morning of 11/12/17, he was taken to [facility] where an x ray showed he has pna, got started on rocephin? (he was already on cipro?) Patient was sent back to SNf from [facility], where he was tachypneic and he was then sent to our ER for further evaluation. Here he was febrile temp 101, Tachycardic with HR 136, bp normal but on the lower end, oxygen sat was low, significant tachypenia. X ray shows nimco basilar pneumonia, Right IJ. EKG sinus tachy, left axis, qs in ant leads falttened t waves in lateral leads, His labs show leucocytosis 12.6, procalcitonin 1.05, hb 8.4, plat 182, Na 137, K 3.7, bicat 2.6, creat 5.8, glucose 64 lactic acid 2.1 on abg Trop elevated at 1.17, it was 5.4 on 10/26/17 Cardiology was consulted on phone and Dr Lockhart at [facility] , who did not feel pt needs to be at [facility] or needed cardiolgoy intervention. (as per er provider) Patient is very tachypneic but saturating well after initiation of bipap, Dr Guzmán notified for need for dialysis, patient being admitted to the ICU, Dr. Kiser started him on zosyn & vancomycin iv abx. Hospital course: 11/13 Patient seen and examined, on BiPAP tolerating the BiPAP well, mental status is better. He gets hypoxic and short of breath of the BiPAP. Bilateral wheezing present on exam. Chest x-ray done today shows CHF, improved infiltrates. Yesterday during dialysis the patient became hypotensive and therefore we were unable to remove much fluid. [id number] ultrasound showed that the patient had a dilated IVC but was collapsing appropriately with inspiration. Patient also had A. fib with RVR. IV amiodarone given with good rate control. 11/14 Patient seen and examined, overnight remains on BiPAP. This morning is short of breath, bilateral wheezing worse than yesterday. Chest x-ray shows worsening CHF. We had given the patient Lasix yesterday however it seems that it did not help much not make much urine. Contacted nephrology for need for dialysis today. Dialysis team aware and will dialyze the patient today. 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 I am not sure if his itching is truly related to use of amiodarone however I will consider switching this to an alternative agent should the patient desire. 11/15 Patient seen and examined, case reviewed with nephrology. The patient was confused and agitated last night needing Ativan. The patient this morning seems to be back to baseline however seems a bit more fidgety and anxious. He is going to get dialyzed again today. Exam shows persistent wheezing. Continue antibiotics labs are stable hemoglobin is 7.4 patient is agreeable to blood transfusion today we will give 2 units. 11/16 Patient seen examined, overnight was anxious, figidty, needed zyprexa no complaints this AM, still appears a bit anxious will give trazodone now, and again pm zpyrpexa qhs prn s/p hd yesterday, cxr today shows mild edema, will need another HD session tomorrow bipap prn microbiology neg so far hb improved to 10 11/17 pt doing well, slept well last night with trazodone, this AM formerly [facility] for HD labs improving pt tolerating po diet well, has no acuet complaints. 11/18 Pt seen examined, no acute overnight issues, pt tolerating po diet well still has some oxygen needs, weak exam shows mild wheeze and prolonged exp phase no afib after HD yesterday labs stable xfer to med surg 11/19, HD dialysis, doing well, on HD-renal adjusted iv zosyn & vancomycin, going back to SNF after HD dialysis, CXR show pneumonia with likely aspiration pneumonia. Discharge diagnosis: Acute Respiratory Failure/ Hypoxic Secondary discharge diagnosis: Health care associated pneumonia/ Aspiration pneumonia, continue iv zosyn & vancomycin for 10-14 days. Acute copd exacerbation Acute systolic and Diastolic Heart failure- Not responding to lasix, fluid removal via HD afib with rvr- not on AC as he has declined this, also recent h/o GIB, stop ASA , resume on plavix, resolved, sinus. ESRD on Hemodialysis- HD with nephrology H/o CAD s/p Recent Stent placement at [facility] h/o Acute GI bleed this month- hb improved after 2 units appropriately, hb stable. h/o Recent small bowel obstruction- no issues at this time. h/o recent peritonitis- now on HD-dialysis DM/HTN/HLD DNR code status. - Time Spent with Patient Total time spent providing and/or coordinating discharge services: Greater than 40 minutes Greater than 30 minutes Medical - DS: Exam - Constitutional Vitals: Vital Signs Temp Pulse Pulse Resp BP BP Pulse Ox 11/19/17 12:15 57 L 92/54 11/19/17 12:00 58 L 121/55 11/19/17 11:53 97.6 F 60 14 105/50 94 11/19/17 11:45 60 105/50 11/19/17 11:30 60 104/42 94 11/19/17 11:15 54 L 111/53 11/19/17 11:03 60 99/46 11/19/17 10:45 77 117/62 11/19/17 10:32 55 L 111/54 11/19/17 10:15 60 101/46 11/19/17 10:00 60 103/50 11/19/17 09:50 60 88/45 11/19/17 09:40 60 83/37 11/19/17 09:35 60 94/70 11/19/17 09:30 54 L 91/42 11/19/17 09:00 97.9 F 51 L 115/50 11/19/17 06:48 98.1 F 54 L 16 129/58 96 11/19/17 03:12 98.8 F 55 L 16 110/56 92 11/19/17 00:32 97.4 F 60 18 120/80 93 11/18/17 22:37 57 L 14 11/18/17 20:00 97.6 F 57 L 18 107/54 90 11/18/17 19:19 60 14 93 11/18/17 19:16 62 12 11/18/17 15:58 62 12 94 11/18/17 15:57 63 10 L Intake and Output 11/18/17 11/19/17 11/19/17 21:59 05:59 13:59 Intake Total 120 / 120 120 / 120 Balance 120 / 120 120 / 120 Intake: Oral 120 / 120 120 / 120 Other: Meal Dinner soup and sherbet Percent of Meal Consumed 50% 100% Feeding Ability Independent Independent Weight 177 lb 8 oz General appearance: cooperative, no acute distress - Head Head exam: Present: atraumatic, normocephalic - Eye Eye exam: Present: EOMI Pupils: Present: PERRL - ENT ENT exam: Present: mucous membranes moist - Neck Neck exam: Present: normal inspection - Respiratory Additional comments: few Bibasal crackles, no accessory muscle use, on nasal cannula - Cardiovascular Cardiovascular exam: Present: normal rate and rhythm, +S1, +S2 - GI/Abdominal GI/Abdominal exam: Present: normal bowel sounds, soft - Extremities Exam Extremities exam: Present: full ROM, normal inspection - Neurological Exam Neurological exam: Present: alert, CN II-XII intact, oriented X3 Medical - DS: Data Procedures and tests throughout hospitalization: Hemodialysis with Dr. Guzmán Transfusion, 2 u packed RBC Labs on day of discharge: Labs from last 24 hours 11/19/17 11/19/17 11/19/17 05:10 05:10 05:10 WBC 10.7 RBC 3.19 L Hgb 10.2 L Hct 30.2 L MCV 94.8 MCH 32.0 MCHC 33.8 RDW 16.2 H Plt Count 138 L MPV 13.0 H Gran % 87.0 H Lymph % (Auto) 6.4 L [place] % (Auto) 6.5 Eos % (Auto) 0.1 Baso % (Auto) 0 Gran # 9.3 H Lymph # (Auto) 0.7 L [place] # (Auto) 0.7 Eos # (Auto) 0 Baso # (Auto) 0 ESR 28 H Sodium 135 Potassium 5.3 H Chloride 97 Carbon Dioxide 23 Anion Gap 15.0 BUN 80 H Creatinine 6.7 H* GFR Calculation 7 Glucose 200 H Calcium 8.8 Total Bilirubin 0.3 AST 17 ALT 26 Alkaline Phosphatase 59 Total Protein 5.1 L Albumin 2.6 L Globulin 2.5 Albumin/Globulin Ratio 1.0 Random Vancomycin 21.3 Vancomycin Dose Not Reportable Vanco Last Dose Time Not Reportable Medical - DS: A/P - Patient/Caregiver Discharge Instructions Activity: as per physical therapy Diet: Renal/Consistent Carbs Additional Instructions: Continue hemodialysis and dialysis schedule. Prescriptions: Acetaminophen [Tylenol] 650 mg PO Q4-6HP PRN #30 tab PRN Reason: Pain/Fever > 101 Insulin Aspart [Novolog] 100 unit SQ ACHS #1 ml Insulin Glargine,Hum.rec.anlog [Toujeo Solostar] 20 unit SQ BID #1 insuln.pen methylPREDNISolone [Medrol Dose Pack] 1 packet PO DAILY #1 tab Metoprolol Succinate [Toprol Xl] 25 mg PO BID #30 tab.xl.24h Pantoprazole [Protonix] 40 mg PO BIDAC #30 tab Piperacillin Sodium/Tazobactam [Zosyn] 2.25 gm IV Q12H 10 Days #20 vial Vancomycin/0.9 % Sod Chloride [Vancomycin 1 G/100Ml-0.9% NaCl] 1 gm IV Q4D #2 plast..bag Other Amb Orders: Home Oxygen Order Time Frame: 2 Weeks, Location: Determined By Patient OT Discharge Order Location: Determined By Patient Physical Therapy at Discharge - General Location: Determined By Patient ST Discharge Order Location: Determined By Patient Outpatient PICC Care Location: Determined By Patient - Follow up Plan Follow up with: Shen Elias MD [Primary Care Provider] - (Please call/schedule hospital follow up.) Virgil Guzmán MD [Physician] - Disposition: Xfer SNF Prognosis: Critical Rehab Potential: Good I certify that the patient requires SNF services: Yes Overall status at discharge: patient is progressing back to baseline Medical - DS: Qual - VTE Deep Vein Thrombosis/Pulmonary Embolism Present on Admission: No
[2017-11-19] MEDS: SEVELAMER 800 MG TABLET PO SCH ×2 (13:09→13:47)
[2017-11-19] MEDS: CALCIUM CARBONATE 500 MG TAB.CHEW CHEWED SCH ×3 (13:10→13:56)
[2017-11-19] MEDS: INSULIN GLARGINE, HUMAN 1 UNIT/0.01 ML SQ SCH (13:11)
[2017-11-19] MEDS: HEPARIN 5,000 UNIT/ML VIAL SQ SCH (13:17)
[2017-11-19] MEDS: ALLOPURINOL 300 MG TABLET PO SCH ×2 (13:46→13:56)
[2017-11-19] MEDS: predniSONE 20 MG TABLET PO SCH ×2 (13:46→13:55)
[2017-11-19] MEDS: SENNOSIDES 1 TABLET PO SCH ×2 (13:47→13:56)
[2017-11-19] MEDS: TAMSULOSIN 0.4 MG CAPSULE PO SCH ×2 (13:48→13:57)
[2017-11-19] MEDS: CLOPIDOGREL 75 MG TABLET PO SCH ×2 (13:48→13:57)
[2017-11-19] MEDS: AMIODARONE HCL 200 MG TABLET PO SCH ×2 (13:48→13:57)
[2017-11-19] MEDS: METOPROLOL TARTRATE 25 MG TABLET PO SCH (13:55)
[2017-11-19] MEDS: DOCUSATE SODIUM 100 MG CAPSULE PO SCH (13:55)
[2017-11-19] MEDS: LACTOBACILLUS 1 CAPSULE PO SCH (13:55)
[2017-11-19] MEDS: PIPERACILLIN SODIUM/TAZOBACTAM 2.25 GM in DEXTROSE 5% IN WATER 50 ML IV SCH (13:55)
== END 2017-11-19 14:38 | DRG 189 ==
LOC: ED 08:29 → ICU 13:26 → MEDSUR 11-18 13:07
PROVIDERS: ADMIT Internal Medicine; ATTEND Internal Medicine

== ENCOUNTER 2017-11-29 08:56 | Inpatient (IN) ==
[2017-11-29] MEDS ORDERED: ASPIRIN 81 MG TAB.CHEW CHEWED ONE (09:09)
[2017-11-29] MEDS ORDERED: IPRATROPIUM/ALBUTEROL 3 ML AMPUL.NEB NEB ONE (09:15)
[2017-11-29] MEDS ORDERED: methylPREDNISolone SOD SUCC 125 MG/2 ML VIAL IV ONE (09:16)
--- NOTE | 2017-11-29 09:25 | Emergency Department Note ---
SOB HPI - General Chief Complaint: Shortness of Breath/Dyspnea Stated Complaint: Shortness of Breath Time Seen by Provider: 11/29/17 09:11 Source: patient Mode of arrival: ambulatory Limitations: no limitations - History of Present Illness Dialysis patient with a history of COPD and CHF woke up this morning approximately 3:00 this morning with wheezing. He was given to albuterol treatments in the ambulance with some improvement. Patient denies any chest pain he had dialysis on Wednesday 2 days ago and is due today. Patient has bilateral wheezing also 2+ edema to the lower extremities. Patient is being transferred from the [place] dialysis unit to [facility] dialysis unit and today was supposed to be the first treatment. However we have called down to [facility], [facility] and we are uncertain if he supposed to have dialysis today or not. Making phone calls to decide whether he needs to have his dialysis. His chest x-ray shows CHF. - Related Data Home Medications Medication Instructions Recorded Confirmed Allopurinol [Zylopriim] 300 mg PO DAILY 11/29/17 11/29/17 Amiodarone HCl [Pacerone] 100 mg PO QAM 11/29/17 11/29/17 Aspirin [Priscila Chewable Aspirin] 81 mg PO DAILY 11/29/17 11/29/17 Bisacodyl [Dulcolax] 10 mg NJ DAILYP PRN 11/29/17 11/29/17 Cholecalciferol (Vitamin D3) 4,000 unit PO QAM 11/29/17 11/29/17 [Vitamin D3] Ciprofloxacin HCl [Cipro] 500 mg PO DAILY 11/29/17 11/29/17 Clopidogrel Bisulfate [Plavix] 75 mg PO QAM 11/29/17 11/29/17 Ferrous Sulfate 325 mg PO DAILY 11/29/17 11/29/17 Fish Oil 1,000 mg PO DAILY 11/29/17 11/29/17 Furosemide [Lasix] 80 mg PO DAILY 11/29/17 11/29/17 Insulin Aspart [Novolog] 1 unit SQ ACHS 11/29/17 11/29/17 Insulin Glargine,Hum.rec.anlog 20 unit SQ BID 11/29/17 11/29/17 [Jaswant Morales] Ipratropium/Albuterol [Duoneb] 3 ml NEB Q4HP PRN 11/29/17 11/29/17 Levothyroxine Sodium [Synthroid] 200 mcg PO DAILY 11/29/17 11/29/17 Na Phos,M-B/Na Phos,Di-Ba [Fleets 1 dose NJ DAILYP PRN 11/29/17 11/29/17 Adult] Nitroglycerin [Nitrostat] 0.4 mg SL Q5M PRN 11/29/17 11/29/17 Nystatin [Kenalog] 1 dose TOPICAL QIDP 11/29/17 11/29/17 Pantoprazole [Protonix] 40 mg PO BIDAC 11/29/17 11/29/17 Saccharomyces Boulardii [Florastor] 250 mg PO BID 11/29/17 11/29/17 Sennosides [Senokot] 1 tab PO DAILY 11/29/17 11/29/17 Sevelamer [Renvela] 800 mg PO TIDCC 11/29/17 11/29/17 Simvastatin [Zocor] 10 mg PO HS 11/29/17 11/29/17 Vancomycin 1 gm IV Q4D 11/29/17 11/29/17 glipiZIDE [Glucotrol] 10 mg PO QAM 11/29/17 11/29/17 methylPREDNISolone [Medrol] 10 mg PO DAILY 11/29/17 11/29/17 Allergies Allergy/AdvReac Type Severity Reaction Status Date / Time ticagrelor Allergy Intermediate Other Verified 11/12/17 14:11 pravastatin Allergy Unknown Verified 11/13/17 00:19 apixaban AdvReac Intermediate Itching Verified 11/12/17 14:10 lovastatin AdvReac Intermediate Rash Verified 11/12/17 14:10 metformin AdvReac Intermediate Rash Verified 11/12/17 14:10 Rosiglitazone AdvReac Intermediate Rash Verified 11/12/17 14:10 Review of Systems All systems ED: reviewed and negative except as stated. Constitutional: Denies: fever Eyes: Denies: eye pain ENT ED: Denies: ear pain Cardiovascular: Reports: dyspnea on exertion. Denies: chest pain Respiratory: Reports: shortness of breath, wheezes Gastrointestinal: Denies: abdominal pain Genitourinary: Denies: dysuria Musculoskeletal: Denies: back pain Integumentary: Denies: rash Neurological: Denies: headache Psychiatric: Denies: anxiety Endocrine: Denies: fatigue Hematological/Lymphatic: Denies: easy bleeding Past Medical History - Past Medical History Medical history: Reports: CVA, DM, hypertension, myocardial infarction (5), renal disease (Renal dialysis patient), other (pneumonia. DENIES asthma.) - Social History smoking status: Current every day smoker Alcohol use: Reports: None Drug use: Reports: none. Denies: marijuana Physical Exam Limitations: no limitations General appearance: alert Head: atraumatic Eye: Present: normal appearance, PERRL ENT: normal exam, normal oropharynx Neck: Present: normal inspection, full ROM Chest: Present: normal inspection, symmetric chest wall rise. Absent: tenderness Respiratory: Present: normal lung sounds bilaterally. Absent: respiratory distress, wheezes, stridor Cardiovascular: Present: regular rate, normal rhythm. Absent: bradycardia, tachycardia Abdominal: Present: soft, normal bowel sounds. Absent: distention, tenderness, guarding, rebound, rigidity Extremities: Present: normal inspection, full ROM Back: Present: normal inspection, full ROM Neurological: Present: alert, oriented X3, CN II-XII intact Psychiatric: Present: normal affect Course Vital Signs Temperature 97.8 F 11/29/17 08:57 Pulse Rate 126 H 11/29/17 08:57 Respiratory Rate 28 H 11/29/17 08:57 Blood Pressure 183/118 11/29/17 08:57 Pulse Oximetry (%) 93 11/29/17 08:57 Temperature 97.8 F 11/29/17 08:57 Pulse Rate 72 11/29/17 14:20 Respiratory Rate 17 11/29/17 14:20 Blood Pressure 126/67 11/29/17 14:02 Pulse Oximetry (%) 98 11/29/17 14:20 Shortness of Breath/Dyspnea - Lab Data Result diagrams: 11/29/17 09:16 11/29/17 09:16 Lab Results 11/29/17 11/29/17 11/29/17 Range/Units 09:16 09:16 09:16 WBC 17.6 H (4.5-11.0) K/mcL RBC 3.40 L (4.50-5.90) M/mcL Hgb 11.0 L (13.5-16.5) g/dL Hct 33.1 L (41.0-55.0) % POC Hct (41.0-55.0) % MCV 97.3 (80.0-100.0) fL MCH 32.3 (26.0-34.0) pg MCHC 33.2 (31.0-36.0) g/dL RDW 18.9 H (11.5-14.5) % Plt Count 125 L (140-440) K/mcL MPV 10.6 H (7.4-10.4) fL Gran % 82.1 H (38.0-78.0) % Lymph % (Auto) 12.9 L (15.5-49.0) % [place] % (Auto) 3.6 (1.0-12.0) % Eos % (Auto) 1.2 (0.0-7.0) % Baso % (Auto) 0.2 (0.0-2.0) % Gran # 14.4 H (1.8-8.0) K/mcL Lymph # (Auto) 2.3 (1.5-4.8) K/mcL [place] # (Auto) 0.6 (0.1-0.9) K/mcL Eos # (Auto) 0.2 (0.0-0.7) K/mcL Baso # (Auto) 0 (0.0-0.3) K/mcL VBG Lactic Acid (0.5-2.2) mmol/L POC Sodium (133-145) mmol/L Sodium 137 (133-145) mmol/L POC Potassium (3.3-5.1) mmol/L Potassium 5.8 H (3.3-5.1) mmol/L POC Chloride (96-108) mmol/L Chloride 97 (96-108) mmol/L Carbon Dioxide 21 L (22-30) mmol/L POC Total CO2 (22-30) mmol/L Anion Gap 19.0 H (8-16) POC BUN (8-23) mg/dl BUN 50 H (8-23) mg/dl Creatinine 6.0 H* (0.7-1.2) mg/dl POC Creatinine (0.7-1.2) mg/dl GFR Calculation 8 Glucose 138 H (70-105) mg/dL POC Glucose (70-105) mg/dL Calcium 9.4 (8.6-10.4) mg/dl POC WB Ioniz Calcium (1.16-1.32) mmol/L Total Bilirubin 0.4 (0.0-1.0) mg/dL AST 20 (0-37) U/l ALT 26 (0-40) U/l Alkaline Phosphatase 110 (39-117) U/L Total Creatine Kinase 32 (24-195) IU/L CK-MB (CK-2) 6.5 H (0-4.9) ng/ml Myoglobin 124 H (28-72) ng/ml Troponin T 0.22 H* (0-0.03) ng/ml NT-Pro-B Natriuret Pep > 03228.0 H (0-450) pg/ml Total Protein 6.6 (5.9-8.4) gm/dL Albumin 3.5 (3.2-5.2) gm/dL Globulin 3.1 (2.2-3.7) gm/dL Albumin/Globulin Ratio 1.1 (1.0-2.3) Random Vancomycin ug/mL Vancomycin Dose Vanco Last Dose Time 11/29/17 11/29/17 11/29/17 Range/Units 09:16 09:16 09:16 WBC (4.5-11.0) K/mcL RBC (4.50-5.90) M/mcL Hgb (13.5-16.5) g/dL Hct (41.0-55.0) % POC Hct 34.0 L (41.0-55.0) % MCV (80.0-100.0) fL MCH (26.0-34.0) pg MCHC (31.0-36.0) g/dL RDW (11.5-14.5) % Plt Count (140-440) K/mcL MPV (7.4-10.4) fL Gran % (38.0-78.0) % Lymph % (Auto) (15.5-49.0) % [place] % (Auto) (1.0-12.0) % Eos % (Auto) (0.0-7.0) % Baso % (Auto) (0.0-2.0) % Gran # (1.8-8.0) K/mcL Lymph # (Auto) (1.5-4.8) K/mcL [place] # (Auto) (0.1-0.9) K/mcL Eos # (Auto) (0.0-0.7) K/mcL Baso # (Auto) (0.0-0.3) K/mcL VBG Lactic Acid 3.0 H (0.5-2.2) mmol/L POC Sodium 135 (133-145) mmol/L Sodium (133-145) mmol/L POC Potassium 5.5 H (3.3-5.1) mmol/L Potassium (3.3-5.1) mmol/L POC Chloride 102 (96-108) mmol/L Chloride (96-108) mmol/L Carbon Dioxide (22-30) mmol/L POC Total CO2 24 (22-30) mmol/L Anion Gap (8-16) POC BUN 48 H (8-23) mg/dl BUN (8-23) mg/dl Creatinine (0.7-1.2) mg/dl POC Creatinine 6.7 H* (0.7-1.2) mg/dl GFR Calculation Glucose (70-105) mg/dL POC Glucose 136 H (70-105) mg/dL Calcium (8.6-10.4) mg/dl POC WB Ioniz Calcium 1.11 L (1.16-1.32) mmol/L Total Bilirubin (0.0-1.0) mg/dL AST (0-37) U/l ALT (0-40) U/l Alkaline Phosphatase (39-117) U/L Total Creatine Kinase (24-195) IU/L CK-MB (CK-2) (0-4.9) ng/ml Myoglobin (28-72) ng/ml Troponin T (0-0.03) ng/ml NT-Pro-B Natriuret Pep (0-450) pg/ml Total Protein (5.9-8.4) gm/dL Albumin (3.2-5.2) gm/dL Globulin (2.2-3.7) gm/dL Albumin/Globulin Ratio (1.0-2.3) Random Vancomycin 20.2 ug/mL Vancomycin Dose Not Reportable Vanco Last Dose Time Not Reportable Disposition Pt seen by [employer] OPERATOR/PA only: No Clinical Impression: CHF (congestive heart failure) Qualifiers: Heart failure type: other Qualified Code(s): I50.9 - Heart failure, unspecified Disposition: Xfer As Inpt ([facility]) Condition: Serious
[2017-11-29] MEDS ORDERED: FUROSEMIDE 40 MG/4 ML VIAL IV ONE (09:33)
[2017-11-29] MEDS ORDERED: LORazepam 2 MG/ML VIAL IV ONE (09:46)
--- NOTE | 2017-11-29 09:52 | XRay Report ---
HISTORY: Reason for Exam:Chest Pain shortness of breath, wheezing and dialysis patient FINDINGS: Moderate congestive heart failure is present with pulmonary edema. This has become worse since 11/19/17. There are tiny bilateral pleural effusions. The heart is borderline enlarged and has increased in size. There is a dialysis catheter placed to the right internal jugular vein into the superior vena cava. IMPRESSION: Congestive heart failure with pulmonary edema Interpreted and Authenticated by: Cesar Olivia 11/29/17
[2017-11-29 10:03] LABS: Basophils # (Auto) 0 K/mcL (0.0-0.3); Basophils % (Auto) 0.2 % (0.0-2.0); Eosinophils # (Auto) 0.2 K/mcL (0.0-0.7); Eosinophils % (Auto) 1.2 % (0.0-7.0); Granulocytes % (Auto) 82.1 % (38.0-78.0); Lymphocytes # (Auto) 2.3 K/mcL (1.5-4.8); Lymphocytes % (Auto) 12.9 % (15.5-49.0); Mean Cell Volume 97.3 fL (80.0-100.0); Mean Corpuscular HGB Conc 33.2 g/dL (31.0-36.0); Mean Corpuscular Hemoglobin 32.3 pg (26.0-34.0); Monocytes # (Auto) 0.6 K/mcL (0.1-0.9); Monocytes % (Auto) 3.6 % (1.0-12.0); Platelet Count 125 K/mcL (140-440); Red Cell Distribution Width 18.9 % (11.5-14.5)
[2017-11-29 10:21] LABS: ALT/SGPT 26 U/l (0-40); Albumin 3.5 gm/dL (3.2-5.2); Albumin/Globulin Ratio 1.1 (1.0-2.3); Alkaline Phosphatase 110 U/L (39-117); Blood Urea Nitrogen 50 mg/dl (8-23); Creatine Kinase 32 IU/L (24-195); Creatine Kinase MB 6.5 ng/ml (0-4.9); Myoglobin 124 ng/ml (28-72)
[2017-11-29 10:31] LABS: proBNP > 70000.0 pg/ml (0-450)
[2017-11-29] MEDS ORDERED: cefTRIAXone 1 GM VIAL IV ONE (10:31)
[2017-11-29] MEDS ORDERED: METOPROLOL TARTRATE 5 MG/5 ML VIAL IV STA (11:37)
[2017-11-29] MEDS: METOPROLOL TARTRATE 5 MG/5 ML VIAL IV SCH ×2 (12:41→13:12)
[2017-11-29] MEDS ORDERED: VANCOMYCIN 1,500 MG in 0.9 % SODIUM CHLORIDE 500 ML IV ONE ×2 (13:06→14:36)
[2017-11-29] MEDS ORDERED: CEFEPIME 1 GM VIAL IV SCH (13:15)
[2017-11-29 13:37] LABS: Vancomycin,Random 20.2 ug/mL
[2017-11-29] MEDS ORDERED: NITROGLYCERIN 0.4 MG TAB.SUBL SL PRN ×2 (13:37→14:36)
[2017-11-29] MEDS ORDERED: ACETAMINOPHEN 160 MG/5 ML ORAL.SOL PT PRN ×2 (13:37→14:36)
[2017-11-29] MEDS ORDERED: ONDANSETRON 4 MG/2 ML VIAL IV PRN ×2 (13:37→14:36)
[2017-11-29] MEDS ORDERED: 0.9 % SODIUM CHLORIDE 10 ML SYRINGE IV SCH (14:00)
--- NOTE | 2017-11-29 14:02 | Internal Med History&Physical ---
Medical - H&P: HPI Patient information: Note initiated : 11/29/17 at 1:59 pm Service Date, if different from initiated Date: [] Patient: Stefan Merritt 77 y/o M admitted on for Shortness of Breath. Chief Complaint: [] History of present illness: Mr. Merritt is a 77 year old diabetic (DM 2) M With complex PMH significant of CAD s/p LAD stent(05/2017, 10/2017), COPD, dialysis patient (recently converted from PD to HD), recently discharged to 2 SNF with rehabilitation, overnight acute shortness of breath at roughly 3 AM, chest x-ray with acute CHF pulmonary edema. Placed on BiPAP with improvement. Troponin elevated at 0.22. Discussed with Dr. Burleson (industrial economics professor buttonhole machine operator for [facility]), who had reviewed his record at [facility] and indicated that this is likely CHF not from CAD event since he had multiple stents (1 in June 03, 1 last month October 2017), and current EKG had no significant changes, and recommend serial dialysis for several days. Discussed that with Dr. Guzmán, his mechanical drafter, who will dialyze him emergently. Admit him to PCU, with emergent HD dialysis. He has cardiac stents in 05/2017 & 10/2017, history of paroxysmal A. fib (off of anticoagulation due to recent acute GI bleed 10/2017) on Plavix and aspirin. He had a recent non-STEMI (10/2017), underwent stent placement at [facility], developed peritonitis (from PD catheter infection, which was then changed to HD dialysis) & upper GI duodenal ulcer bleed, small bowel obstruction , aspiration pneumonia, discharged to rehabilitation SNF (11/09/17), rehospitalized here 11/03/18 for fever with bibasilar pneumonia. His troponin was also elevated to 1.17 at that hospitalization (cardiology with Dr. Garza at [facility] contacted by Dr. Kiser) and thought to be troponin leak from acute infection severe pneumonia. He was treated with antibiotics and underwent HD dialysis with Dr. Guzmán, and discharged to fdc facility with rehabilitation on 11/19/17. All systems: reviewed and no additional remarkable complaints except as stated Medical - H&P: PMH Surgical history: DM, hypertension, myocardial infarction (5), HTN, duodenal ulcer GI bleeding of her lipidemia, end-stage renal disease on HD, COPD, obesity, recent peritonitis from infected PD catheter, recent small bowel obstruction Pertinent family history: Diabetes, father with myeloma. 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 Drug use: none Alcohol use: none Medical - H&P: Meds Home Medications Medication Instructions Recorded Confirmed Type Allopurinol [Zylopriim] 300 mg PO DAILY 11/29/17 11/29/17 History Amiodarone HCl [Pacerone] 100 mg PO QAM 11/29/17 11/29/17 History Aspirin [Priscila Chewable Aspirin] 81 mg PO DAILY 11/29/17 11/29/17 History Bisacodyl [Dulcolax] 10 mg [place] DAILYP PRN 11/29/17 11/29/17 History Cholecalciferol (Vitamin D3) 4,000 unit PO QAM 11/29/17 11/29/17 History [Vitamin D3] Ciprofloxacin HCl [Cipro] 500 mg PO DAILY 11/29/17 11/29/17 History Clopidogrel Bisulfate [Plavix] 75 mg PO QAM 11/29/17 11/29/17 History Ferrous Sulfate 325 mg PO DAILY 11/29/17 11/29/17 History Fish Oil 1,000 mg PO DAILY 11/29/17 11/29/17 History Furosemide [Lasix] 80 mg PO DAILY 11/29/17 11/29/17 History Insulin Aspart [Novolog] 1 unit SQ ACHS 11/29/17 11/29/17 History Insulin Glargine,Hum.rec.anlog 20 unit SQ BID 11/29/17 11/29/17 History [Tounatalia Solostar] Ipratropium/Albuterol [Duoneb] 3 ml NEB Q4HP PRN 11/29/17 11/29/17 History Levothyroxine Sodium [Synthroid] 200 mcg PO DAILY 11/29/17 11/29/17 History Na Phos,M-B/Na Phos,Di-Ba [Fleets 1 dose [place] DAILYP PRN 11/29/17 11/29/17 History Adult] Nitroglycerin [Nitrostat] 0.4 mg SL Q5M PRN 11/29/17 11/29/17 History Nystatin [Kenalog] 1 dose TOPICAL QIDP 11/29/17 11/29/17 History Pantoprazole [Protonix] 40 mg PO BIDAC 11/29/17 11/29/17 History Saccharomyces Boulardii [Florastor] 250 mg PO BID 11/29/17 11/29/17 History Sennosides [Senokot] 1 tab PO DAILY 11/29/17 11/29/17 History Sevelamer [Renvela] 800 mg PO TIDCC 11/29/17 11/29/17 History Simvastatin [Zocor] 10 mg PO HS 11/29/17 11/29/17 History Vancomycin 1 gm IV Q4D 11/29/17 11/29/17 History glipiZIDE [Glucotrol] 10 mg PO QAM 11/29/17 11/29/17 History methylPREDNISolone [Medrol] 10 mg PO DAILY 11/29/17 11/29/17 History Allergies Allergy/AdvReac Type Severity Reaction Status Date / Time ticagrelor Allergy Intermediate Other Verified 11/12/17 14:11 pravastatin Allergy Unknown Verified 11/13/17 00:19 apixaban AdvReac Intermediate Itching Verified 11/12/17 14:10 lovastatin AdvReac Intermediate Rash Verified 11/12/17 14:10 metformin AdvReac Intermediate Rash Verified 11/12/17 14:10 Rosiglitazone AdvReac Intermediate Rash Verified 11/12/17 14:10 Medical - H&P: Exam - Constitutional Vitals: Temp Pulse Resp BP Pulse Ox 97.8 F 66 16 136/55 99 11/29/17 08:57 11/29/17 13:32 11/29/17 13:17 11/29/17 13:32 11/29/17 13:32 General appearance: moderate distress, obese Exam: Lethargic, weak and drowsy, on BiPAP. - Head Head exam: Present: atraumatic, normocephalic - Eye Eye exam: Present: EOMI Pupils: Present: PERRL - ENT ENT exam: Present: mucous membranes dry - Neck Neck exam: Absent: meningismus - Respiratory Respiratory exam: Present: rales. Absent: accessory muscle use Additional comments: On BiPAP - Cardiovascular Cardiovascular exam: Present: +S1, +S2 Additional comments: Had been tachycardic to 128, initially, captured on EKG. - GI/Abdominal GI/Abdominal exam: Present: soft, distended (obese habitus). Absent: guarding, rebound, tenderness - Extremities Exam Extremities exam: Present: pedal edema Additional comments: 2+ pitting edema bilateral lower extremities, cold legs and feet - Neurological Exam Additional comments: Limited due to lethargy and weakness, however he is awake to verbal with stimuli and loud voices. - Skin Additional comments: Cool and clammy Medical - H&P: Reslt - Labs CBC & Chem 7: 11/29/17 09:16 11/29/17 09:16 Labs: Short CBC 11/29/17 Range/Units 09:16 WBC 17.6 H (4.5-11.0) K/mcL Hgb 11.0 L (13.5-16.5) g/dL Hct 33.1 L (41.0-55.0) % Plt Count 125 L (140-440) K/mcL BMP 11/29/17 09:16 Sodium 137 Potassium 5.8 H Chloride 97 Carbon Dioxide 21 L BUN 50 H Creatinine 6.0 H* Glucose 138 H Calcium 9.4 Cardiac Enzymes 11/29/17 11/29/17 Range/Units 09:16 09:16 Total Creatine Kinase 32 (24-195) IU/L CK-MB (CK-2) 6.5 H (0-4.9) ng/ml Troponin T 0.22 H* (0-0.03) ng/ml Liver Function 11/29/17 Range/Units 09:16 Total Bilirubin 0.4 (0.0-1.0) mg/dL AST 20 (0-37) U/l ALT 26 (0-40) U/l Alkaline Phosphatase 110 (39-117) U/L Albumin 3.5 (3.2-5.2) gm/dL Medical - H&P: A/P (1) Acute on chronic combined systolic and diastolic CHF (congestive heart failure) Current visit: No Status: Acute (2) Tachycardia Current visit: Yes Status: Acute (3) Elevated troponin Current visit: Yes Status: Acute (4) Hx of heart artery stent Current visit: Yes Status: Acute (5) ESRD (end stage renal disease) on dialysis Problem details: 1. Volume overload. He was dialysed Wednesday. Tolerated better. Will dialyse tomorrow. 2. Anemia. Got 2 units of prbc. 3. Hyperphos. On Tums with meals. 4. Confusion. Minimise narcotics. Getting better. Current visit: No Status: Acute - Narrative A/P Narrative: Admit to PCU, emergent dialysis with Dr. Guzmán for fluid removal, continue BiPAP support, fluid restriction, review his recent 2-D echo, resume home meds, trend troponins.
--- NOTE | 2017-11-29 14:14 | Consultation ---
DATE OF CONSULTATION: 11/29/2017 REFERRING PHYSICIAN: Emiliano Cowan M.D. REASON FOR CONSULTATION: Volume overload. HISTORY OF PRESENT ILLNESS: The patient is a 77-year-old gentleman with history of end-stage renal disease on hemodialysis. He was recently hospitalized and was discharged after a long hospitalization. He has history of coronary artery disease for which he had stents put in about a month ago. Subsequently, he was in the emergency room here in the last 2 weeks, and then he returns again for the same complaints. He has also had a PD catheter which was infected for which reason it was taken out. He has history of upper GI bleed for a small duodenal ulcer and a small-bowel obstruction which have resolved. He was brought in to the [facility] Emergency Room because he was short of breath. He had a chest x-ray that showed congestive heart failure. He was placed on BiPAP. His troponin was slightly elevated for which a cardiology referral was made and he was hospitalized. PAST MEDICAL HISTORY: Significant for: 1. End-stage renal disease on hemodialysis, dialyzes three times weekly. He used to be on peritoneal dialysis and recently switched over. 2. History of coronary artery disease status post LAD stent placed in 2018. 3. History of duodenal ulcer with a GI bleed. 4. Hypertension. 5. Hypercholesterolemia. 6. Diabetes. 7. Peritonitis. 8. COPD. 9. Obesity. 10. History of small-bowel obstruction. FAMILY HISTORY: Significant for myeloma and diabetes. SOCIAL HISTORY: He has a 50+ pack-year of smoking. 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 MEDICATIONS ON ADMISSION: 1. Allopurinol 300 mg once daily. 2. Aspirin 325 mg once daily. 3. Proscar 5 mg daily. 4. Lantus insulin. 5. Levothyroxine 150 mcg daily. 6. Nitroglycerin 0.4 mg sublingual p.r.n. 7. [place] 3. 8. Tamsulosin 0.4 mg once daily. 9. Torsemide 20 mg daily. 10. Vitamin D3 1000 units daily. 11. Amlodipine 5 mg daily. 12. Glipizide 10 mg twice daily. 13. He was supposed to be on vancomycin as well for peritonitis. PHYSICAL EXAMINATION: GENERAL: Alert and oriented x1. He is on a BiPAP so with moderate respiratory distress. VITAL SIGNS: His blood pressure is 149/73 with a pulse rate of 72, respiratory rate of 60, with a pulse oximetry of 96% on BiPAP. HEENT: NC/AT. Pupils are reactive. External auditory canal appears normal. NECK: Supple. He does have 10 cm of jugular venous distention. No lymphadenopathy. No thyromegaly. No carotid bruits. LUNGS: Decreased air entry bilaterally and rales heard in both bases. CARDIAC: S1, S2 heard. No S3, S4. He has a 3/6 systolic murmur. ABDOMEN: Soft, nontender. No organomegaly. Positive bowel sounds. No mass. No rebound. EXTREMITIES: 2+ edema bilaterally. LABORATORY DATA: White count is 17.6 with a hemoglobin of 11.0 and a platelet count of 125. Sodium 135, potassium 5.5, chloride of 102, CO2 24, BUN of 48, creatinine of 6.7. His troponin was elevated at 0.22. His proBNP was more than 70,000. ASSESSMENT AND PLAN: 1. Volume overload. He appears to be grossly volume overloaded. His blood pressure is also high. We will dialyze him today and attempt to remove 5 liters of fluid as tolerated. We will adjust his dry weight as an outpatient. 2. History of end-stage renal disease on hemodialysis. We will do a daily dialysis to readjust his weight. 3. History of peritonitis. I think he has completed the antibiotic course, but we will check vancomycin levels and continue per Pharmacy for another week. He will also be on cefepime. 4. The rest of the management per Hospitalist team. Frederick Job ID: [id number] Doc ID: [id number] Virgil Guzmán MD
[2017-11-29] MEDS ORDERED: LEVALBUTEROL 0.63 MG/3 ML AMPUL.NEB NEB SCH (15:00)
[2017-11-29] MEDS: LEVALBUTEROL 0.63 MG/3 ML AMPUL.NEB NEB SCH ×3 (15:28→22:53)
[2017-11-29] MEDS ORDERED: VANCOMYCIN PER PHARMACY IV SCH (15:30)
[2017-11-29] MEDS: BUDESONIDE 0.5 MG/2 ML AMPUL.NEB NEB SCH (19:00)
[2017-11-29] MEDS ORDERED: ALTEPLASE 2 MG VIAL IV ONE (19:16)
[2017-11-29] MEDS ORDERED: BUDESONIDE 0.5 MG/2 ML AMPUL.NEB NEB SCH (21:00)
[2017-11-29] MEDS ORDERED: HEPARIN 5,000 UNIT/ML VIAL SQ SCH (21:00)
[2017-11-29] MEDS: HEPARIN 5,000 UNIT/ML VIAL SQ SCH (22:39)
[2017-11-29] MEDS: 0.9 % SODIUM CHLORIDE 10 ML SYRINGE IV SCH (22:40)
[2017-11-30] MEDS: LEVALBUTEROL 0.63 MG/3 ML AMPUL.NEB NEB SCH ×6 (03:16→22:56)
[2017-11-30] MEDS: 0.9 % SODIUM CHLORIDE 10 ML SYRINGE IV SCH ×3 (06:19→21:36)
[2017-11-30 07:02] LABS: Vancomycin,Random 16.9 ug/mL
[2017-11-30] MEDS: BUDESONIDE 0.5 MG/2 ML AMPUL.NEB NEB SCH ×2 (07:23→19:29)
[2017-11-30] MEDS ORDERED: ASPIRIN 81 MG TAB.CHEW CHEWED SCH ×2 (09:00)
[2017-11-30 09:17] LABS: Basophils # (Auto) 0 K/mcL (0.0-0.3); Basophils % (Auto) 0 % (0.0-2.0); Eosinophils # (Auto) 0 K/mcL (0.0-0.7); Eosinophils % (Auto) 0.2 % (0.0-7.0); Lymphocytes # (Auto) 0.8 K/mcL (1.5-4.8); Lymphocytes % (Auto) 8.2 % (15.5-49.0); Mean Corpuscular HGB Conc 33.4 g/dL (31.0-36.0); Mean Corpuscular Hemoglobin 32.4 pg (26.0-34.0); Monocytes # (Auto) 0.4 K/mcL (0.1-0.9); Monocytes % (Auto) 3.6 % (1.0-12.0); Platelet Count 102 K/mcL (140-440); RBC 2.89 M/mcL (4.50-5.90); Red Cell Distribution Width 19.7 % (11.5-14.5)
[2017-11-30] MEDS: HEPARIN 5,000 UNIT/ML VIAL SQ SCH ×2 (09:18→21:29)
[2017-11-30 09:37] LABS: Blood Urea Nitrogen 48 mg/dl (8-23)
--- NOTE | 2017-11-30 13:07 | Nephrology Progress Note ---
Subjective Patient information: Note initiated : 11/30/17 at 1:05 pm Service Date, if different from initiated Date: [] Patient: Stefan Merritt 77 y/o M admitted on 11/29/17 for Shortness of Breath/ CHF. Chief Complaint: [] Breathing is a lot better. Objective - Vital Signs Vital signs: Vital Signs Temp Pulse Pulse Resp BP BP Pulse Ox 11/30/17 12:41 97.0 F 72 167/68 11/30/17 12:17 65 96 11/30/17 12:15 67 156/76 11/30/17 12:01 98.6 F 69 18 155/70 96 11/30/17 12:00 76 155/70 11/30/17 11:47 69 165/74 95 11/30/17 11:45 68 165/74 11/30/17 11:31 75 107/82 97 11/30/17 11:30 76 107/82 11/30/17 11:16 77 120/75 94 11/30/17 11:15 77 120/75 11/30/17 11:13 73 96 11/30/17 11:03 75 16 11/30/17 11:01 77 18 116/57 97 11/30/17 11:00 78 116/57 11/30/17 10:58 91 11/30/17 10:46 70 148/63 95 11/30/17 10:45 78 148/63 11/30/17 10:35 80 16 98 11/30/17 10:34 85 87 L 11/30/17 10:31 71 150/72 92 11/30/17 10:30 75 150/72 11/30/17 10:21 73 143/72 96 18 10:15 81 143/72 11/30/17 10:01 82 12 138/67 94 18 10:00 97.0 F 83 138/67 18 09:01 67 16 130/79 94 11/30/17 08:01 98.8 F 83 16 101/88 93 18 07:31 66 16 96 18 07:24 95 11/30/17 07:01 98.6 F 75 15 146/57 94 11/30/17 06:01 70 14 137/61 96 11/30/17 06:00 96 07/17/18 05:01 85 20 119/59 95 07/17/18 04:30 72 14 116/50 94 07/17/18 04:01 97.8 F 72 16 116/50 93 07/17/18 03:33 68 18 07/17/18 03:01 73 17 137/54 93 07/17/18 02:01 78 18 156/70 96 07/17/18 01:01 67 16 138/70 97 07/17/18 00:59 73 12 96 07/17/18 00:29 75 17 95 07/17/18 00:01 98.8 F 81 18 133/78 94 07/16/18 23:44 77 18 07/16/18 23:30 98 07/16/18 23:04 73 19 118/52 97 07/16/18 22:01 79 135/60 98 07/16/18 21:01 66 133/61 98 07/16/18 20:30 66 117/44 97 07/16/18 19:46 97.2 F 67 113/67 98 07/16/18 19:25 75 100/64 98 07/16/18 19:16 97.7 F 78 85/62 07/16/18 19:07 81 100 07/16/18 19:02 77 100/66 07/16/18 19:01 75 100/66 100 07/16/18 19:00 78 18 07/16/18 18:57 77 17 100 07/16/18 18:47 78 103/59 07/16/18 18:46 74 103/59 98 07/16/18 18:31 80 88/58 96 07/16/18 18:30 79 88/58 07/16/18 18:17 80 72/52 94 07/16/18 18:03 79 129/92 98 07/16/18 18:02 79 129/92 07/16/18 18:00 74 94 07/16/18 17:49 78 115/91 97 07/16/18 17:35 74 71/55 95 07/16/18 17:33 76 76/50 95 07/16/18 17:32 108 H 76/69 07/16/18 17:31 79 76/56 94 07/16/18 17:17 82 21 99 07/16/18 17:16 65 109/66 99 07/16/18 17:15 66 109/66 11/29/17 17:01 57 L 126/56 100 11/29/17 16:58 63 109/95 11/29/17 16:46 63 109/95 100 11/29/17 16:33 60 142/82 100 11/29/17 16:16 59 L 127/73 99 11/29/17 16:01 97.4 F 69 144/114 99 11/29/17 15:55 96.0 F L 68 146/65 11/29/17 15:42 81 28 H 11/29/17 15:33 68 30 H 98 11/29/17 15:00 97.8 F 20 153/78 98 11/29/17 14:20 72 17 98 11/29/17 14:15 97.8 F 153/78 99 11/29/17 14:02 68 17 126/67 100 11/29/17 14:00 97.8 F 20 153/78 100 11/29/17 13:32 66 136/55 99 11/29/17 13:17 66 16 140/61 99 11/29/17 13:15 69 15 138/64 99 Intake and Output 11/29/17 11/30/17 11/30/17 21:59 05:59 13:59 Intake Total 600 / 600 120 / 120 Output Total 4120 / 4120 383 / 383 3665 / 3665 Balance -4120 / -4120 217 / 217 -3545 / -3545 Intake: Oral 600 / 600 120 / 120 Output: Urine Catheter Amount 383 / 383 65 / 65 Void Amount 0 / 0 # of times incontinent of urine 0 / 0 Hemodialysis UF 4120 / 4120 3600 / 3600 Other: Meal Nourishment/Supplement Breakfast Percent of Meal Consumed 100% 100% Stool Size Moderate Stool Color Brown Brown Stool Consistency Soft Soft # Voids 0 0 # Bowel Movements 1 # of times incontinent of 1 Bowels Weight 189 lb 6 oz 189 lb 6 oz Intake & Output: Intake & Output 11/29/17 11/30/17 11/30/17 21:59 05:59 13:59 Intake Total 600 / 600 120 / 120 Output Total 4120 / 4120 383 / 383 3665 / 3665 Balance -4120 / -4120 217 / 217 -3545 / -3545 Weight 189 lb 6 oz 189 lb 6 oz Intake: Oral 600 / 600 120 / 120 Output: Urine Catheter Amount 383 / 383 65 / 65 Void Amount 0 / 0 # of times incontinent of urine 0 / 0 Hemodialysis UF 4120 / 4120 3600 / 3600 Other: Meal Nourishment/Supplement Breakfast Percent of Meal Consumed 100% 100% Stool Size Moderate Stool Color Brown Brown Stool Consistency Soft Soft # Voids 0 0 # Bowel Movements 1 # of times incontinent of 1 Bowels - General Appearance General appearance: well-developed, well-nourished EENT: ATNC Neck: no JVD Respiratory: no kyphosis Cardiology: no murmurs Gastrointestinal: normoactive bowel sounds Integumentary: no rash Neurologic: no focal deficit Musculoskeletal: deformities - Lab 11/30/17 08:46 11/30/17 08:46 Most recent lab results Calcium 9.1 mg/dl (8.6-10.4) 11/30/17 08:46 Assessment and Plan (1) ESRD (end stage renal disease) on dialysis Status: Acute Comment: 1. Volume overload. He was dialysed yesterday and today. Will dialyse Wednesday. 2. Anemia. 3. Hyperphos. On Tums with meals.
[2017-11-30] MEDS ORDERED: cloNIDine HCL 0.1 MG TABLET PO PRN (13:08)
[2017-11-30] MEDS ORDERED: BISACODYL 10 MG SUPP.RECT PR PRN (13:28)
[2017-11-30] MEDS ORDERED: NITROGLYCERIN 0.4 MG TAB.SUBL SL PRN (13:28)
[2017-11-30] MEDS ORDERED: VANCOMYCIN 1 GM VIAL IV SCH (13:30)
[2017-11-30 13:49] LABS: Vancomycin,Random 18.6 ug/mL
[2017-11-30] MEDS ORDERED: INSULIN ASPART 1 UNIT SQ SCH (17:00)
[2017-11-30] MEDS: INSULIN LISPRO 1 UNIT/0.01 ML UNIT SQ SCH ×2 (17:57→21:29)
[2017-11-30] MEDS: PANTOPRAZOLE 40 MG TABLET PO SCH (17:57)
[2017-11-30] MEDS: SEVELAMER 800 MG TABLET PO SCH (17:57)
[2017-11-30] MEDS: CEFEPIME 1 GM VIAL IV SCH (20:23)
--- NOTE | 2017-11-30 21:19 | Internal Med Progress Note ---
Medical - PN: Subj Patient information: Note initiated : 11/30/17 at 9:19 pm Service Date, if different from initiated Date: [] Patient: Stefan Merritt 77 y/o M admitted on 11/29/17 for Shortness of Breath/ CHF. Chief Complaint: [] - Constitutional Vitals: Vital Signs Temp Pulse Resp BP Pulse Ox 98.8 F 73 16 86/71 96 11/30/17 20:01 11/30/17 20:43 11/30/17 20:01 11/30/17 20:01 11/30/17 20:43 Period Temp Pulse Resp BP Sys/Jean Pulse Ox Last 24 Hr 97.0 F-98.8 F 63-92 12-20 83-167/50-88 87-98 Intake and Output 11/30/17 11/30/17 11/30/17 05:59 13:59 21:59 Intake Total 600 / 600 360 / 360 300 / 300 Output Total 383 / 383 3665 / 3665 48 / 48 Balance 217 / 217 -3305 / -3305 252 / 252 Weight 189 lb 6 oz 184 lb 11.2 oz Patient Weight 12/01/17 05:59 Weight 184 lb 11.2 oz Intake & Output: Intake & Output 11/30/17 11/30/17 11/30/17 05:59 13:59 21:59 Intake Total 600 / 600 360 / 360 300 / 300 Output Total 383 / 383 3665 / 3665 48 / 48 Balance 217 / 217 -3305 / -3305 252 / 252 Weight 189 lb 6 oz 184 lb 11.2 oz Intake: Oral 600 / 600 360 / 360 300 / 300 Output: Urine Catheter Amount 383 / 383 65 / 65 48 / 48 Hemodialysis UF 3600 / 3600 Other: Meal Nourishment/Supplement Breakfast Dinner Percent of Meal Consumed 100% 100% 100% Feeding Ability Assist with Tray Set Up Stool Size Moderate Stool Color Brown Brown Stool Consistency Soft Soft # Voids 0 # Bowel Movements 1 # of times incontinent of 1 Bowels Medical - PN: Obj Da - Labs CBC & Chem 7: 11/30/17 08:46 11/30/17 08:46 Labs: Abnormal Lab Results 11/30/17 11/30/17 11/30/17 08:46 08:46 04:20 WBC RBC 2.89 L Hgb 9.4 L Hct 28.1 L POC Hct RDW 19.7 H Plt Count 102 L MPV Gran % 88.0 H Lymph % (Auto) 8.2 L Gran # 9.0 H Lymph # (Auto) 0.8 L VBG Lactic Acid POC Potassium Potassium Carbon Dioxide Anion Gap POC BUN BUN 48 H Creatinine 5.0 H POC Creatinine Glucose 244 H POC Glucose POC WB Ioniz Calcium CK-MB (CK-2) Myoglobin Troponin T 0.20 H* NT-Pro-B Natriuret Pep 11/29/17 11/29/17 11/29/17 09:16 09:16 09:16 WBC RBC Hgb Hct POC Hct 34.0 L RDW Plt Count MPV Gran % Lymph % (Auto) Gran # Lymph # (Auto) VBG Lactic Acid 3.0 H POC Potassium 5.5 H Potassium Carbon Dioxide Anion Gap POC BUN 48 H BUN Creatinine POC Creatinine 6.7 H* Glucose POC Glucose 136 H POC WB Ioniz Calcium 1.11 L CK-MB (CK-2) Myoglobin Troponin T 0.22 H* NT-Pro-B Natriuret Pep 11/29/17 11/29/17 09:16 09:16 WBC 17.6 H RBC 3.40 L Hgb 11.0 L Hct 33.1 L POC Hct RDW 18.9 H Plt Count 125 L MPV 10.6 H Gran % 82.1 H Lymph % (Auto) 12.9 L Gran # 14.4 H Lymph # (Auto) VBG Lactic Acid POC Potassium Potassium 5.8 H Carbon Dioxide 21 L Anion Gap 19.0 H POC BUN BUN 50 H Creatinine 6.0 H* POC Creatinine Glucose 138 H POC Glucose POC WB Ioniz Calcium CK-MB (CK-2) 6.5 H Myoglobin 124 H Troponin T NT-Pro-B Natriuret Pep > 91107.0 H Meds: Medications Acetaminophen (Tylenol) 650 mg PT Q6HP PRN PRN Reason: PAIN/FEVER > 101 Albuterol/Ipratropium (Duoneb) 3 ml NEB Q4HP PRN PRN Reason: Shortness Of Breath Or Wheezing Allopurinol (Zylopriim) 300 mg PO DAILY [facility] Amiodarone [facility]) [facility] Aspirin (Aspirin) 81 mg PO DAILY [facility] Bisacodyl (Dulcolax) 10 mg [place] DAILYP PRN PRN Reason: Constipation Budesonide (Pulmicort) 0.5 mg NEB Q12 [facility] Last Admin: 11/30/17 19:29 Dose: 0.5 mg Cefepime HCl (Maxipime) 1 gm IV Q24H [facility] Last Admin: 11/30/17 20:23 Dose: 1 gm Clonidine HCl (Catapres) 0.1 mg PO Q4HP PRN PRN Reason: Hypertension Clopidogrel Bisulfate (Plavix) 75 mg PO QAM [facility] Diagnostic Test (Pha) (Accu-Chek) 1 each FS ACHS [facility] Last Admin: 11/30/17 17:57 Dose: 1 each Ferrous Sulfate (Ferrous Sulfate) 325 mg PO DAILY [facility] Fish Oil (Fish Oil) 1,000 mg PO DAILY [facility] Furosemide (Lasix) 80 mg PO DAILY [facility] Glipizide (Glucotrol) 10 mg PO QAMAC [facility] Heparin Sodium (Porcine) (Heparin) 5,000 unit SQ Q12 [facility] Last Admin: 11/30/17 09:18 Dose: 5,000 unit Heparin Sodium (Porcine) (Heparin Flush) 2 ml IV Q8 [facility] Last Admin: 11/30/17 15:11 Dose: 2 ml Insulin Glargine (Lantus) 20 unit SQ BID [facility] Insulin Human Lispro (Humalog) 0 unit SQ ACHS [facility] PRN Reason: Protocol Last Admin: 11/30/17 17:57 Dose: 3 unit Lactobacillus Rhamnosus (Culturelle) 1 cap PO BID [facility] Levalbuterol HCl (Xopenex) 0.63 mg NEB Q4HRT [facility] Last Admin: 11/30/17 19:30 Dose: 0.63 mg Levothyroxine Sodium (Synthroid) 200 mcg PO ACB [facility] Nitroglycerin (Nitrostat) 0.4 mg SL Q5M PRN PRN Reason: Chest Pain Nitroglycerin (Nitrostat) 0.4 mg SL Q5M PRN PRN Reason: Chest Pain Nystatin (Nystatin) 1 dose TOPICAL QIDP [facility] Ondansetron HCl (Zofran) 4 mg IV Q4-6HP PRN PRN Reason: Nausea And Vomiting Pantoprazole Sodium (Protonix) 40 mg PO BIDAC [facility] Last Admin: 11/30/17 17:57 Dose: 40 mg Methylprednisolone [ (Medrol] 10 Mg Tab) [facility] Senna (Senokot) 1 tab PO DAILY [facility] Sevelamer Carbonate (Renvela) 800 mg PO TIDCC [facility] Last Admin: 11/30/17 17:57 Dose: 800 mg Simvastatin (Zocor) 10 mg PO HS [facility] Sodium Chloride (Saline Flush) 10 ml IV Q8 [facility] Last Admin: 11/30/17 15:12 Dose: 10 ml Vancomycin HCl (Vancomycin Per Pharmacy) 1 order IV UD [facility] Vitamin D (Vitamin D3) 5,000 unit PO DAILY [facility] Medical - PN: A/P - Time Spent With Patient Total time spent is greater than 50% in coordination of care (as documented) at patient's floor/unit and/or counseling patient: (1) Acute on chronic combined systolic and diastolic CHF (congestive heart failure) Status: Acute Current Visit: No (2) Tachycardia Status: Acute Current Visit: Yes (3) Elevated troponin Status: Acute Current Visit: Yes (4) Hx of heart artery stent Status: Acute Current Visit: Yes (5) ESRD (end stage renal disease) on dialysis Problem details: 1. Volume overload. He was dialysed yesterday and today. Will dialyse Wednesday. 2. Anemia. 3. Hyperphos. On Tums with meals. Status: Acute Current Visit: No Medical - PN: Qual - VTE Deep Vein Thrombosis/Pulmonary Embolism Present on Admission: No
[2017-11-30] MEDS: INSULIN GLARGINE, HUMAN 1 UNIT/0.01 ML SQ SCH (21:28)
[2017-11-30] MEDS: LACTOBACILLUS 1 CAPSULE PO SCH (21:29)
[2017-11-30] MEDS: SIMVASTATIN 10 MG TABLET PO SCH (21:30)
[2017-12-01] MEDS: LEVALBUTEROL 0.63 MG/3 ML AMPUL.NEB NEB SCH ×6 (03:00→22:31)
[2017-12-01 05:35] LABS: Basophils # (Auto) 0 K/mcL (0.0-0.3); Basophils % (Auto) 0.1 % (0.0-2.0); Eosinophils # (Auto) 0.2 K/mcL (0.0-0.7); Eosinophils % (Auto) 1.9 % (0.0-7.0); Granulocytes % (Auto) 86.3 % (38.0-78.0); Lymphocytes # (Auto) 0.7 K/mcL (1.5-4.8); Lymphocytes % (Auto) 8.2 % (15.5-49.0); Mean Cell Volume 98.1 fL (80.0-100.0); Mean Corpuscular HGB Conc 33.6 g/dL (31.0-36.0); Monocytes # (Auto) 0.3 K/mcL (0.1-0.9); Monocytes % (Auto) 3.5 % (1.0-12.0); Platelet Count 104 K/mcL (140-440); RBC 2.82 M/mcL (4.50-5.90); Red Cell Distribution Width 18.9 % (11.5-14.5)
[2017-12-01 05:49] LABS: Blood Urea Nitrogen 61 mg/dl (8-23)
[2017-12-01] MEDS: 0.9 % SODIUM CHLORIDE 10 ML SYRINGE IV SCH ×3 (05:57→21:25)
[2017-12-01] MEDS: INSULIN GLARGINE, HUMAN 1 UNIT/0.01 ML SQ SCH ×2 (07:17→21:25)
[2017-12-01] MEDS: INSULIN LISPRO 1 UNIT/0.01 ML UNIT SQ SCH ×4 (07:17→21:24)
[2017-12-01] MEDS: LACTOBACILLUS 1 CAPSULE PO SCH ×3 (07:31→22:18)
[2017-12-01] MEDS: ALLOPURINOL 300 MG TABLET PO SCH ×2 (07:31→08:02)
[2017-12-01] MEDS: FISH OIL 1,000 MG CAPSULE PO SCH (07:31)
[2017-12-01] MEDS: ASPIRIN 81 MG TAB.CHEW PO SCH (07:32)
[2017-12-01] MEDS: SEVELAMER 800 MG TABLET PO SCH ×3 (07:32→17:02)
[2017-12-01] MEDS: FERROUS SULFATE 325 MG TABLET PO SCH ×2 (07:32→08:04)
[2017-12-01] MEDS: PANTOPRAZOLE 40 MG TABLET PO SCH ×2 (07:32→17:02)
[2017-12-01] MEDS: FUROSEMIDE 80 MG TABLET PO SCH (07:32)
[2017-12-01] MEDS: LEVOTHYROXINE 100 MCG TABLET PO SCH (07:32)
[2017-12-01] MEDS: VITAMIN D3 5,000 UNIT CAPSULE PO SCH (07:32)
[2017-12-01] MEDS: CLOPIDOGREL 75 MG TABLET PO SCH (07:32)
[2017-12-01] MEDS: SENNOSIDES 1 TABLET PO SCH ×2 (07:32→08:04)
[2017-12-01] MEDS: AMIODARONE HCL 200 MG TABLET PO SCH (07:32)
[2017-12-01] MEDS: glipiZIDE 5 MG TABLET PO SCH (07:32)
[2017-12-01] MEDS: METHYLPREDNISOLONE PO SCH (07:33)
[2017-12-01] MEDS: HEPARIN 5,000 UNIT/ML VIAL SQ SCH ×2 (08:47→21:17)
[2017-12-01] MEDS ORDERED: CIPROFLOXACIN 500 MG TABLET PO SCH (09:00)
[2017-12-01] MEDS: BUDESONIDE 0.5 MG/2 ML AMPUL.NEB NEB SCH (09:18)
--- NOTE | 2017-12-01 13:04 | Internal Med Progress Note ---
Medical - PN: Subj Patient information: Note initiated : 12/01/17 at 1:03 pm Service Date, if different from initiated Date: [] Patient: Stefan Merritt 77 y/o M admitted on 11/29/17 for Shortness of Breath/ CHF. Chief Complaint: [] - Constitutional Vitals: Vital Signs Temp Pulse Resp BP Pulse Ox 97 F 69 22 120/110 96 12/01/17 12:26 12/01/17 12:26 12/01/17 12:01 12/01/17 12:26 12/01/17 12:04 Period Temp Pulse Resp BP Sys/Jean Pulse Ox Last 24 Hr 97 F-99.2 F 64-152 14-22 83-166/52-110 91-99 Intake and Output 11/30/17 12/01/17 12/01/17 21:59 05:59 13:59 Intake Total 540 / 540 150 / 150 Output Total 48 / 48 175 / 175 3600 / 3600 Balance 492 / 492 -25 / -25 -3600 / -3600 Weight 184 lb 11.2 oz Intake & Output: Intake & Output 11/30/17 12/01/17 12/01/17 21:59 05:59 13:59 Intake Total 540 / 540 150 / 150 Output Total 48 / 48 175 / 175 3600 / 3600 Balance 492 / 492 -25 / -25 -3600 / -3600 Weight 184 lb 11.2 oz Intake: Oral 540 / 540 150 / 150 Output: Urine Catheter Amount 48 / 48 175 / 175 100 / 100 Hemodialysis UF 3500 / 3500 Other: Meal HS snack Breakfast Percent of Meal Consumed 100% 50% Feeding Ability Assist with Tray Set Up Independent Stool Size Small Stool Color Brown Stool Consistency Soft # Bowel Movements 1 - Head Head exam: Present: atraumatic, normocephalic - Eye Eye exam: Present: EOMI Pupils: Present: normal accommodation, PERRL - ENT ENT exam: Present: mucous membranes moist Medical - PN: Obj Da - Labs CBC & Chem 7: 12/01/17 03:37 12/01/17 03:37 Labs: Abnormal Lab Results 12/01/17 12/01/17 11/30/17 03:37 03:37 08:46 WBC RBC 2.82 L 2.89 L Hgb 9.3 L 9.4 L Hct 27.6 L 28.1 L POC Hct RDW 18.9 H 19.7 H Plt Count 104 L 102 L MPV 11.7 H Gran % 86.3 H 88.0 H Lymph % (Auto) 8.2 L 8.2 L Gran # 9.0 H Lymph # (Auto) 0.7 L 0.8 L VBG Lactic Acid POC Potassium Potassium Carbon Dioxide Anion Gap POC BUN BUN 61 H Creatinine 6.3 H* POC Creatinine Glucose POC Glucose POC WB Ioniz Calcium CK-MB (CK-2) Myoglobin Troponin T NT-Pro-B Natriuret Pep 11/30/17 11/30/17 11/29/17 08:46 04:20 09:16 WBC RBC Hgb Hct POC Hct 34.0 L RDW Plt Count MPV Gran % Lymph % (Auto) Gran # Lymph # (Auto) VBG Lactic Acid POC Potassium 5.5 H Potassium Carbon Dioxide Anion Gap POC BUN 48 H BUN 48 H Creatinine 5.0 H POC Creatinine 6.7 H* Glucose 244 H POC Glucose 136 H POC WB Ioniz Calcium 1.11 L CK-MB (CK-2) Myoglobin Troponin T 0.20 H* NT-Pro-B Natriuret Pep 11/29/17 11/29/17 11/29/17 09:16 09:16 09:16 WBC RBC Hgb Hct POC Hct RDW Plt Count MPV Gran % Lymph % (Auto) Gran # Lymph # (Auto) VBG Lactic Acid 3.0 H POC Potassium Potassium 5.8 H Carbon Dioxide 21 L Anion Gap 19.0 H POC BUN BUN 50 H Creatinine 6.0 H* POC Creatinine Glucose 138 H POC Glucose POC WB Ioniz Calcium CK-MB (CK-2) 6.5 H Myoglobin 124 H Troponin T 0.22 H* NT-Pro-B Natriuret Pep > 76618.0 H 11/29/17 09:16 WBC 17.6 H RBC 3.40 L Hgb 11.0 L Hct 33.1 L POC Hct RDW 18.9 H Plt Count 125 L MPV 10.6 H Gran % 82.1 H Lymph % (Auto) 12.9 L Gran # 14.4 H Lymph # (Auto) VBG Lactic Acid POC Potassium Potassium Carbon Dioxide Anion Gap POC BUN BUN Creatinine POC Creatinine Glucose POC Glucose POC WB Ioniz Calcium CK-MB (CK-2) Myoglobin Troponin T NT-Pro-B Natriuret Pep Meds: Medications Acetaminophen (Tylenol) 650 mg PT Q6HP PRN PRN Reason: PAIN/FEVER > 101 Albuterol/Ipratropium (Duoneb) 3 ml NEB Q4HP PRN PRN Reason: Shortness Of Breath Or Wheezing Allopurinol (Zylopriim) 300 mg PO DAILY [facility] Last Admin: 12/01/17 08:02 Dose: Not Given [facility]) [facility] Last Admin: 12/01/17 07:32 Dose: 100 mg Aspirin (Aspirin) 81 mg PO DAILY [facility] Last Admin: 12/01/17 07:32 Dose: 81 mg Bisacodyl (Dulcolax) 10 mg [place] DAILYP PRN PRN Reason: Constipation Budesonide (Pulmicort) 0.5 mg NEB Q12 [facility] Last Admin: 12/01/17 09:18 Dose: 0.5 mg Cefepime HCl (Maxipime) 1 gm IV Q24H [facility] Last Admin: 11/30/17 20:23 Dose: 1 gm Clonidine HCl (Catapres) 0.1 mg PO Q4HP PRN PRN Reason: Hypertension Clopidogrel [facility] ([facility]avix) [facility] Last Admin: 12/01/17 07:32 Dose: 75 mg Diagnostic Test (Pha) (Accu-Chek) 1 each FS ACHS [facility] Last Admin: 12/01/17 07:16 Dose: 1 each Ferrous Sulfate (Ferrous Sulfate) 325 mg PO DAILY [facility] Last Admin: 12/01/17 08:04 Dose: Not Given Fish Oil (Fish Oil) 1,000 mg PO DAILY [facility] Last Admin: 12/01/17 07:31 Dose: 1,000 mg Furosemide (Lasix) 80 mg PO DAILY [facility] Last Admin: 12/01/17 07:32 Dose: 80 mg Glipiz[facility] ([facility]ot[facility]) [facility] Last Admin: 12/01/17 07:32 Dose: 10 mg Heparin Sodium (Porcine) (Heparin) 5,000 unit SQ Q12 [facility] Last Admin: 12/01/17 08:47 Dose: 5,000 unit Heparin Sodium (Porcine) (Heparin Flush) 2 ml IV Q8 [facility] Last Admin: 12/01/17 05:57 Dose: 2 ml Vancomycin HCl 1,000 mg/ (Sodium Chloride) 250 mls @ 250 mls/hr IV ONCE ONE Stop: 12/01/17 14:14 Insulin Glargine (Lantus) 20 unit SQ BID [facility] Last Admin: 12/01/17 07:17 Dose: Not Given Insulin Human Lispro (Humalog) 0 unit SQ ACHS [facility] PRN Reason: Protocol Last Admin: 12/01/17 07:17 Dose: Not Given Lactobacillus Rhamnosus (Culturelle) 1 cap PO BID [facility] Last Admin: 12/01/17 08:02 Dose: Not Given Levalbuterol HCl (Xopenex) 0.63 mg NEB Q4HRT [facility] Last Admin: 12/01/17 11:10 Dose: 0.63 mg Levothyroxine Sodium (Synthroid) 200 mcg PO ACB [facility] Last Admin: 12/01/17 07:32 Dose: 200 mcg Nitroglycerin (Nitrostat) 0.4 mg SL Q5M PRN PRN Reason: Chest Pain Nitroglycerin (Nitrostat) 0.4 mg SL Q5M PRN PRN Reason: Chest Pain Nystatin (Nystatin) 1 dose TOPICAL QIDP [facility] Ondansetron HCl (Zofran) 4 mg IV Q4-6HP PRN PRN Reason: Nausea And Vomiting Pantoprazole Sodium (Protonix) 40 mg PO BIDAC [facility] Last Admin: 12/01/17 07:32 Dose: 40 mg Methylprednisolone [ (Medrol] 10 Mg Tab) 1 dose PO QAMCC [facility] Last Admin: 12/01/17 07:33 Dose: Not Given Senna (Senokot) 1 tab PO DAILY [facility] Last Admin: 12/01/17 08:04 Dose: Not Given Sevelamer Carbonate (Renvela) 800 mg PO TIDCC [facility] Last Admin: 12/01/17 07:32 Dose: 800 mg Simvastatin (Zocor) 10 mg PO HS [facility] Last Admin: 11/30/17 21:30 Dose: 10 mg Sodium Chloride (Saline Flush) 10 ml IV Q8 [facility] Last Admin: 12/01/17 05:57 Dose: 10 ml Vancomycin HCl (Vancomycin Per Pharmacy) 1 order IV UD [facility] Vitamin D (Vitamin D3) 5,000 unit PO DAILY [facility] Last Admin: 12/01/17 07:32 Dose: 5,000 unit Medical - PN: A/P - Time Spent With Patient Total time spent is greater than 50% in coordination of care (as documented) at patient's floor/unit and/or counseling patient: (1) Acute on chronic combined systolic and diastolic CHF (congestive heart failure) Status: Acute Current Visit: No (2) Tachycardia Status: Acute Current Visit: Yes (3) Elevated troponin Status: Acute Current Visit: Yes (4) Hx of heart artery stent Status: Acute Current Visit: Yes (5) ESRD (end stage renal disease) on dialysis Problem details: 1. Volume overload. He was dialysed yesterday and today. Will dialyse Wednesday. 2. Anemia. 3. Hyperphos. On Tums with meals. Status: Acute Current Visit: No Medical - PN: Qual - VTE Deep Vein Thrombosis/Pulmonary Embolism Present on Admission: No
[2017-12-01] MEDS ORDERED: VANCOMYCIN 1,000 MG in 0.9 % SODIUM CHLORIDE 250 ML IV ONE (13:15)
[2017-12-01] MEDS: NYSTATIN POWDER BOTTLE 15GM TOPICAL SCH (14:56)
--- NOTE | 2017-12-01 18:13 | XRay Report ---
HISTORY: Reason for Exam:follow-up CHF FINDINGS: The congestive heart failure with pulmonary edema has improved significantly but not completely resolved. There is some residual edema or superimposed atelectasis posteriorly and medially in both lower lobes. There is blunting of the posterior costophrenic sulci due to very small bilateral pleural effusions. The heart size is within normal limits. Dialysis catheter remains well-positioned. IMPRESSION: Resolving congestive heart failure. Interpreted and Authenticated by: Cesar Olivia 12/01/17
[2017-12-01] MEDS: SIMVASTATIN 10 MG TABLET PO SCH (21:17)
[2017-12-01] MEDS: CEFEPIME 1 GM VIAL IV SCH (21:39)
[2017-12-02] MEDS ORDERED: DEXTROSE 50% 50 ML VIAL IV ONE (01:35)
[2017-12-02] MEDS ORDERED: DEXTROSE 50% 50 ML VIAL IV PRN (01:44)
[2017-12-02] MEDS: LEVALBUTEROL 0.63 MG/3 ML AMPUL.NEB NEB SCH ×6 (03:00→23:46)
[2017-12-02] MEDS: 0.9 % SODIUM CHLORIDE 10 ML SYRINGE IV SCH ×3 (05:44→20:37)
[2017-12-02 06:28] LABS: Basophils # (Auto) 0 K/mcL (0.0-0.3); Basophils % (Auto) 0.4 % (0.0-2.0); Eosinophils # (Auto) 0.2 K/mcL (0.0-0.7); Granulocytes % (Auto) 78.3 % (38.0-78.0); Lymphocytes # (Auto) 0.9 K/mcL (1.5-4.8); Lymphocytes % (Auto) 14.5 % (15.5-49.0); Mean Cell Volume 99.2 fL (80.0-100.0); Mean Corpuscular HGB Conc 33.4 g/dL (31.0-36.0); Mean Corpuscular Hemoglobin 33.2 pg (26.0-34.0); Monocytes # (Auto) 0.2 K/mcL (0.1-0.9); Monocytes % (Auto) 3.8 % (1.0-12.0); Platelet Count 92 K/mcL (140-440); RBC 2.79 M/mcL (4.50-5.90); Red Cell Distribution Width 18.8 % (11.5-14.5)
[2017-12-02] MEDS: BUDESONIDE 0.5 MG/2 ML AMPUL.NEB NEB SCH ×3 (06:51→19:10)
[2017-12-02 07:02] LABS: Blood Urea Nitrogen 36 mg/dl (8-23)
[2017-12-02] MEDS: INSULIN GLARGINE, HUMAN 1 UNIT/0.01 ML SQ SCH (07:32)
[2017-12-02] MEDS: SENNOSIDES 1 TABLET PO SCH (07:32)
[2017-12-02] MEDS: glipiZIDE 5 MG TABLET PO SCH (08:35)
[2017-12-02] MEDS: METHYLPREDNISOLONE PO SCH (08:36)
[2017-12-02] MEDS: INSULIN LISPRO 1 UNIT/0.01 ML UNIT SQ SCH ×4 (08:36→20:38)
[2017-12-02] MEDS: FERROUS SULFATE 325 MG TABLET PO SCH (08:39)
[2017-12-02] MEDS: PANTOPRAZOLE 40 MG TABLET PO SCH ×2 (08:39→17:30)
[2017-12-02] MEDS: HEPARIN 5,000 UNIT/ML VIAL SQ SCH ×2 (08:39→20:36)
[2017-12-02] MEDS: AMIODARONE HCL 200 MG TABLET PO SCH (08:39)
[2017-12-02] MEDS: CLOPIDOGREL 75 MG TABLET PO SCH (08:39)
[2017-12-02] MEDS: ALLOPURINOL 300 MG TABLET PO SCH (08:40)
[2017-12-02] MEDS: ASPIRIN 81 MG TAB.CHEW PO SCH (08:40)
[2017-12-02] MEDS: SEVELAMER 800 MG TABLET PO SCH ×3 (08:40→17:30)
[2017-12-02] MEDS: VITAMIN D3 5,000 UNIT CAPSULE PO SCH (08:44)
[2017-12-02] MEDS: LACTOBACILLUS 1 CAPSULE PO SCH ×2 (08:44→20:36)
[2017-12-02] MEDS: LEVOTHYROXINE 100 MCG TABLET PO SCH (08:44)
[2017-12-02] MEDS: FUROSEMIDE 80 MG TABLET PO SCH (08:44)
[2017-12-02] MEDS: FISH OIL 1,000 MG CAPSULE PO SCH (08:44)
[2017-12-02] MEDS: IPRATROPIUM/ALBUTEROL 3 ML AMPUL.NEB NEB PRN ×2 (11:31→19:10)
[2017-12-02 12:13] LABS: Appearance,Urine CLEAR; Bacteria,Urine 0 /hpf (0); Bilirubin,Urine NEG (NEG); Color,Urine YELLOW; Glucose,Urine (UA) 50 mg/dL (NEG); Leukocyte Esterase,Urine NEG /uL (NEG); Mucus,Urine FEW /hpf (0); Protein,Urine 100 mg/dL (NEG); Specific Gravity,Urine 1.013 (1.000-1.035); Urine Blood 0.2 mg/dL (<0.03); Urine Hyaline Cast 1 /lpf (0-2); Urine RBC 91 /hpf (0-1); Urine Squamous Epithelial Cell < 1 /hpf (0-4); Urine WBC 6 /hpf (0-4); Urobilinogen,Urine NEG (NEG)
[2017-12-02] MEDS: SIMVASTATIN 10 MG TABLET PO SCH (20:36)
[2017-12-02] MEDS: CEFEPIME 1 GM VIAL IV SCH (20:36)
--- NOTE | 2017-12-02 21:26 | Internal Med Progress Note ---
Medical - PN: Subj Patient information: Note initiated : 12/02/17 at 9:25 pm Service Date, if different from initiated Date: [] Patient: Stefan Merritt 77 y/o M admitted on 11/29/17 for Shortness of Breath/ CHF. Chief Complaint: [] - Constitutional Vitals: Vital Signs Temp Pulse Resp BP Pulse Ox 98.8 F 64 16 137/57 95 12/02/17 16:01 12/02/17 19:51 12/02/17 19:51 12/02/17 20:01 12/02/17 20:19 Period Temp Pulse Resp BP Sys/Jean Pulse Ox Last 24 Hr 98.2 F-99.3 F 64-87 16-18 119-155/43-78 91-98 Intake and Output 12/02/17 12/02/17 12/02/17 05:59 13:59 21:59 Intake Total 420 / 420 240 / 240 380 / 380 Output Total 310 / 310 150 / 150 80 / 80 Balance 110 / 110 90 / 90 300 / 300 Intake & Output: Intake & Output 12/02/17 12/02/17 12/02/17 05:59 13:59 21:59 Intake Total 420 / 420 240 / 240 380 / 380 Output Total 310 / 310 150 / 150 80 / 80 Balance 110 / 110 90 / 90 300 / 300 Intake: Oral 420 / 420 240 / 240 380 / 380 Output: Urine Catheter Amount 310 / 310 150 / 150 Void Amount 80 / 80 Other: Meal Nourishment/Supplement Lunch Dinner Percent of Meal Consumed 50% 100% 75% Feeding Ability Independent Assist with Tray Set Up Stool Size Small Moderate Moderate Stool Color Brown Brown Brown Stool Consistency Formed Formed Formed # Voids 50 # Bowel Movements 0 1 Medical - PN: Obj Da - Labs CBC & Chem 7: 12/02/17 04:20 12/02/17 04:20 Labs: Abnormal Lab Results 12/02/17 12/02/17 12/02/17 10:15 04:20 04:20 RBC 2.79 L Hgb 9.3 L Hct 27.7 L RDW 18.8 H Plt Count 92 L MPV 12.1 H Gran % 78.3 H Lymph % (Auto) 14.5 L Gran # Lymph # (Auto) 0.9 L BUN 36 H Creatinine 4.9 H Glucose Calcium 8.4 L Troponin T Urine Protein 100 A Urine Glucose (UA) 50 A Urine Occult Blood 0.2 A Urine RBC 91 H Urine WBC 6 H 12/01/17 12/01/17 11/30/17 03:37 03:37 08:46 RBC 2.82 L 2.89 L Hgb 9.3 L 9.4 L Hct 27.6 L 28.1 L RDW 18.9 H 19.7 H Plt Count 104 L 102 L MPV 11.7 H Gran % 86.3 H 88.0 H Lymph % (Auto) 8.2 L 8.2 L Gran # 9.0 H Lymph # (Auto) 0.7 L 0.8 L BUN 61 H Creatinine 6.3 H* Glucose Calcium Troponin T Urine Protein Urine Glucose (UA) Urine Occult Blood Urine RBC Urine WBC 11/30/17 11/30/17 08:46 04:20 RBC Hgb Hct RDW Plt Count MPV Gran % Lymph % (Auto) Gran # Lymph # (Auto) BUN 48 H Creatinine 5.0 H Glucose 244 H Calcium Troponin T 0.20 H* Urine Protein Urine Glucose (UA) Urine Occult Blood Urine RBC Urine WBC Meds: Medications Acetaminophen (Tylenol) 650 mg PT Q6HP PRN PRN Reason: PAIN/FEVER > 101 Albuterol/Ipratropium (Duoneb) 3 ml NEB Q4HP PRN PRN Reason: Shortness Of Breath Or Wheezing Last Admin: 12/02/17 19:10 Dose: 3 ml Allopurinol (Zylopriim) 300 mg PO DAILY [facility] Last Admin: 12/02/17 08:40 Dose: Not Given Amiodarone HCl (Cordarone) 100 mg PO [facility] Last Admin: 12/02/17 08:39 Dose: 100 mg Aspirin (Aspirin) 81 mg PO DAILY [facility] Last Admin: 12/02/17 08:40 Dose: 81 mg Bisacodyl (Dulcolax) 10 mg [place] DAILYP PRN PRN Reason: Constipation Budesonide (Pulmicort) 0.5 mg NEB Q12 [facility] Last Admin: 12/02/17 19:10 Dose: 0.5 mg Cefepime HCl (Maxipime) 1 gm IV Q24H [facility] Last Admin: 12/02/17 20:36 Dose: 1 gm Clonidine HCl (Catapres) 0.1 mg PO Q4HP PRN PRN Reason: Hypertension Clopidogrel Bisulfate (Plavix) 75 mg PO QAM [facility] Last Admin: 12/02/17 08:39 Dose: 75 mg Dextrose (Dextrose 50%) 50 ml IV UD PRN; Protocol PRN Reason: Hypoglycemia Diagnostic Test (Pha) (Accu-Chek) 1 each FS ACHS [facility] Last Admin: 12/02/17 20:38 Dose: 1 each Ferrous Sulfate (Ferrous Sulfate) 325 mg PO DAILY [facility] Last Admin: 12/02/17 08:39 Dose: 325 mg Fish Oil (Fish Oil) 1,000 mg PO DAILY [facility] Last Admin: 12/02/17 08:44 Dose: 1,000 mg Furosemide (Lasix) 80 mg PO DAILY [facility] Last Admin: 12/02/17 08:44 Dose: 80 mg Heparin Sodium (Porcine) (Heparin) 5,000 unit SQ Q12 [facility] Last Admin: 12/02/17 20:36 Dose: 5,000 unit Heparin Sodium (Porcine) (Heparin Flush) 2 ml IV Q8 [facility] Last Admin: 12/02/17 20:36 Dose: 2 ml Insulin Human Lispro (Humalog) 0 unit SQ [facility] PRN Reason: Protocol Last Admin: 12/02/17 20:38 Dose: Not Given Lactobacillus Rhamnosus (Culturelle) 1 cap PO BID [facility] Last Admin: 12/02/17 20:36 Dose: 1 cap Levalbuterol HCl (Xopenex) 0.63 mg NEB Q4HRT [facility] Last Admin: 12/02/17 15:14 Dose: Not Given Levothyroxine Sodium (Synthroid) 200 mcg PO ACB [facility] Last Admin: 12/02/17 08:44 Dose: 200 mcg Nitroglycerin (Nitrostat) 0.4 mg SL Q5M PRN PRN Reason: Chest Pain Nitroglycerin (Nitrostat) 0.4 mg SL Q5M PRN PRN Reason: Chest Pain Nystatin (Nystatin) 1 dose TOPICAL QIDP [facility] Last Admin: 12/01/17 14:56 Dose: 1 dose Ondansetron HCl (Zofran) 4 mg IV Q4-6HP PRN PRN Reason: Nausea And Vomiting Pantoprazole Sodium (Protonix) 40 mg PO BIDAC [facility] Last Admin: 12/02/17 17:30 Dose: 40 mg Methylprednisolone [ (Medrol] 10 Mg Tab) 1 dose PO QAMCC [facility] Last Admin: 12/02/17 08:36 Dose: Not Given Senna (Senokot) 1 tab PO DAILY [facility] Last Admin: 12/02/17 07:32 Dose: Not Given Sevelamer Carbonate (Renvela) 800 mg PO TIDCC [facility] Last Admin: 12/02/17 17:30 Dose: 800 mg Simvastatin (Zocor) 10 mg PO HS [facility] Last Admin: 12/02/17 20:36 Dose: 10 mg Sodium Chloride (Saline Flush) 10 ml IV Q8 [facility] Last Admin: 12/02/17 20:37 Dose: 10 ml Vancomycin HCl (Vancomycin Per Pharmacy) 1 order IV UD [facility] Vitamin D (Vitamin D3) 5,000 unit PO DAILY [facility] Last Admin: 12/02/17 08:44 Dose: 5,000 unit Medical - PN: A/P - Time Spent With Patient Total time spent is greater than 50% in coordination of care (as documented) at patient's floor/unit and/or counseling patient: (1) Acute on chronic combined systolic and diastolic CHF (congestive heart failure) Status: Acute Current Visit: No (2) Tachycardia Status: Acute Current Visit: Yes (3) Elevated troponin Status: Acute Current Visit: Yes (4) Hx of heart artery stent Status: Acute Current Visit: Yes (5) ESRD (end stage renal disease) on dialysis Problem details: 1. Volume overload. He was dialysed yesterday and today. Will dialyse Wednesday. 2. Anemia. 3. Hyperphos. On Tums with meals. Status: Acute Current Visit: No Medical - PN: Qual - VTE Deep Vein Thrombosis/Pulmonary Embolism Present on Admission: No
[2017-12-03] MEDS: LEVALBUTEROL 0.63 MG/3 ML AMPUL.NEB NEB SCH ×5 (02:33→14:55)
[2017-12-03] MEDS: 0.9 % SODIUM CHLORIDE 10 ML SYRINGE IV SCH ×2 (05:39→13:15)
[2017-12-03 06:14] LABS: Basophils # (Auto) 0 K/mcL (0.0-0.3); Basophils % (Auto) 0.6 % (0.0-2.0); Eosinophils # (Auto) 0.2 K/mcL (0.0-0.7); Granulocytes % (Auto) 71.8 % (38.0-78.0); Lymphocytes # (Auto) 1.2 K/mcL (1.5-4.8); Lymphocytes % (Auto) 19.3 % (15.5-49.0); Mean Corpuscular HGB Conc 34.2 g/dL (31.0-36.0); Mean Corpuscular Hemoglobin 35.9 pg (26.0-34.0); Monocytes # (Auto) 0.3 K/mcL (0.1-0.9); Monocytes % (Auto) 4.3 % (1.0-12.0); Platelet Count 101 K/mcL (140-440); RBC 2.58 M/mcL (4.50-5.90); Red Cell Distribution Width 19.1 % (11.5-14.5)
[2017-12-03 06:56] LABS: Blood Urea Nitrogen 48 mg/dl (8-23)
[2017-12-03] MEDS: BUDESONIDE 0.5 MG/2 ML AMPUL.NEB NEB SCH (07:16)
[2017-12-03] MEDS: INSULIN LISPRO 1 UNIT/0.01 ML UNIT SQ SCH ×2 (07:30→10:23)
[2017-12-03] MEDS: ASPIRIN 81 MG TAB.CHEW PO SCH (07:36)
[2017-12-03] MEDS: LEVOTHYROXINE 100 MCG TABLET PO SCH (07:36)
[2017-12-03] MEDS: VITAMIN D3 5,000 UNIT CAPSULE PO SCH (07:36)
[2017-12-03] MEDS: LACTOBACILLUS 1 CAPSULE PO SCH (07:36)
[2017-12-03] MEDS: FERROUS SULFATE 325 MG TABLET PO SCH (07:36)
[2017-12-03] MEDS: CLOPIDOGREL 75 MG TABLET PO SCH (07:36)
[2017-12-03] MEDS: FUROSEMIDE 80 MG TABLET PO SCH (07:36)
[2017-12-03] MEDS: FISH OIL 1,000 MG CAPSULE PO SCH (07:36)
[2017-12-03] MEDS: HEPARIN 5,000 UNIT/ML VIAL SQ SCH (07:36)
[2017-12-03] MEDS: SEVELAMER 800 MG TABLET PO SCH ×2 (07:36→10:32)
[2017-12-03] MEDS: PANTOPRAZOLE 40 MG TABLET PO SCH (07:36)
[2017-12-03] MEDS: AMIODARONE HCL 200 MG TABLET PO SCH (07:36)
[2017-12-03] MEDS: ALLOPURINOL 300 MG TABLET PO SCH (07:37)
[2017-12-03] MEDS: METHYLPREDNISOLONE PO SCH (07:37)
[2017-12-03] MEDS: SENNOSIDES 1 TABLET PO SCH (07:37)
[2017-12-03] MEDS: NYSTATIN POWDER BOTTLE 15GM TOPICAL SCH (10:14)
--- NOTE | 2017-12-03 10:51 | Discharge Summary ---
Medical - DS: Prov Patient information: Note initiated : 12/03/17 at 10:48 am Service Date, if different from initiated Date: [] Patient: Stefan Merritt 77 y/o M admitted on 11/29/17 for Shortness of Breath/ CHF. Chief Complaint: [] Date of admission: 11/29/17 14:15 Discharge date: 12/03/17 Primary care physician: Shen Elias Consults: 11/29/17 10:44 Consult to Physician [CONS] Stat Comment: Consulting Provider: Saige Kay Reason For Exam: Physician to Consult 11/29/17 11:29 Consult to Physician [CONS] Stat Comment: Consulting Provider: Virgil Guzmán Reason For Exam: Physician to Consult Medical - DS: Meds - Discharge Medications Active and Home Medications: Home Medications Allopurinol [Zylopriim] 300 mg PO DAILY 11/29/17 [History Confirmed 11/29/17 Last Taken Unknown] Amiodarone HCl [Pacerone] 100 mg PO QAM 11/29/17 [History Confirmed 11/29/17 Last Taken Unknown] Aspirin [Priscila Chewable Aspirin] 81 mg PO DAILY 11/29/17 [History Confirmed Last Taken Unknown] Bisacodyl [Dulcolax] 10 mg [place] DAILYP PRN 11/29/17 [History Confirmed 11/29/17 Last Taken Unknown] Cholecalciferol (Vitamin D3) [Vitamin D3] 4,000 unit PO QAM 11/29/17 [History Confirmed 11/29/17 Last Taken Unknown] Ciprofloxacin HCl [Cipro] 500 mg PO DAILY 11/29/17 [History Confirmed 11/29/17 Last Taken Unknown] Clopidogrel Bisulfate [Plavix] 75 mg PO QAM 11/29/17 [History Confirmed Last Taken Unknown] Ferrous Sulfate 325 mg PO DAILY 11/29/17 [History Confirmed 11/29/17 Last Taken Unknown] Fish Oil 1,000 mg PO DAILY 11/29/17 [History Confirmed 11/29/17 Last Taken Unknown] Furosemide [Lasix] 80 mg PO DAILY 11/29/17 [History Confirmed 11/29/17 Last Taken Unknown] Insulin Aspart [Novolog] 1 unit SQ ACHS 11/29/17 [History Confirmed 11/29/17 Last Taken Unknown] Insulin Glargine,Hum.rec.anlog [Jaswant Morales] 20 unit SQ BID 11/29/17 [ History Confirmed 11/29/17 Last Taken Unknown] Ipratropium/Albuterol [Duoneb] 3 ml NEB Q4HP PRN 11/29/17 [History Confirmed Last Taken Unknown] Levothyroxine Sodium [Synthroid] 200 mcg PO DAILY 11/29/17 [History Confirmed Last Taken Unknown] Na Phos,M-B/Na Phos,Di-Ba [Fleets Adult] 1 dose [place] DAILYP PRN 11/29/17 [History Confirmed 11/29/17 Last Taken Unknown] Nitroglycerin [Nitrostat] 0.4 mg SL Q5M PRN 11/29/17 [History Confirmed Last Taken Unknown] Nystatin 1 dose TOPICAL QIDP 11/29/17 [History Confirmed 11/29/17 Last Taken Unknown] Pantoprazole [Protonix] 40 mg PO BIDAC 11/29/17 [History Confirmed 11/29/17 Last Taken Unknown] Saccharomyces Boulardii [Florastor] 250 mg PO BID 11/29/17 [History Confirmed Last Taken Unknown] Sennosides [Senokot] 1 tab PO DAILY 11/29/17 [History Confirmed 11/29/17 Last Taken Unknown] Sevelamer [Renvela] 800 mg PO TIDCC 11/29/17 [History Confirmed 11/29/17 Last Taken Unknown] Simvastatin [Zocor] 10 mg PO HS 11/29/17 [History Confirmed 11/29/17 Last Taken Unknown] Vancomycin 1 gm IV Q4D 11/29/17 [History Confirmed 11/29/17 Last Taken 11/25/17 07:18 1gm] glipiZIDE [Glucotrol] 10 mg PO QAM 11/29/17 [History Confirmed 11/29/17 Last Taken Unknown] methylPREDNISolone [Medrol] 10 mg PO DAILY 11/29/17 [History Confirmed 11/29/17 Last Taken Unknown] Medical - DS: Hosp Hospital course: Discharge diagnosis * Acute decompensated heart failure secondary to volume overload. Improved with hemodialysis and fluid removal * ESRD on hemodialysis managed by nephrology * Elevated troponin the setting of ESRD without serial elevation or symptoms * Anemia secondary ESRD status post 2 units PRBC transfusion * Uremic encephalopathy clinically improved with dialysis currently at baseline Brief hospital course Mr. Merritt is a 77 year old diabetic (DM 2) M With complex PMH significant of CAD s/p LAD stent(05/2017, 10/2017), COPD, dialysis patient (recently converted from PD to HD), recently discharged to 2 SNF with rehabilitation, overnight acute shortness of breath at roughly 3 AM, chest x-ray with acute CHF pulmonary edema. Placed on BiPAP with improvement. Troponin elevated at 0.22. Discussed with Dr. Burleson (associate biological sales oracle distribution consultant for [facility]), who had reviewed his record at [facility] and indicated that this is likely CHF not from CAD event since he had multiple stents (1 in June 03, 1 last month October 2017), and current EKG had no significant changes, and recommend serial dialysis for several days. Discussed that with Dr. Guzmán, his radio communications mechanician, who will dialyze him emergently. Admit him to PCU, with emergent HD dialysis. He has cardiac stents in 05/2017 & 10/2017, history of paroxysmal A. fib (off of anticoagulation due to recent acute GI bleed 10/2017) on Plavix and aspirin. He had a recent non-STEMI (10/2017), underwent stent placement at [facility], developed peritonitis (from PD catheter infection, which was then changed to HD dialysis) & upper GI duodenal ulcer bleed, small bowel obstruction , aspiration pneumonia, discharged to rehabilitation SNF (11/09/17), rehospitalized here 11/03/18 for fever with bibasilar pneumonia. His troponin was also elevated to 1.17 at that hospitalization (cardiology with Dr. Garza at [facility] contacted by Dr. Kiser) and thought to be troponin leak from acute infection severe pneumonia. He was treated with antibiotics and underwent HD dialysis with Dr. Guzmán, and discharged to senior care facility with rehabilitation on 11/19/17. 12/03-patient doing a lot better. No overnight events. No concerns per staff. Patient feels at baseline. Mentation at baseline. Discharging post hemodialysis today. Detailed instructions as below Discharge diagnosis: . - Time Spent with Patient Total time spent providing and/or coordinating discharge services: Medical - DS: Exam - Constitutional Vitals: Vital Signs Temp Pulse Pulse Resp BP Pulse Ox 12/03/17 10:01 121/52 96 07/20/18 09:01 129/57 94 18 07:18 71 18 12/03/17 07:01 17 146/65 95 18 06:57 99.0 F 12/03/17 06:38 81 15 93 18 06:01 17 137/50 94 18 05:31 92 18 05:01 145/70 97 12/03/17 04:01 98.1 F 16 127/57 94 12/03/17 03:01 137/55 91 12/03/17 02:25 96 12/03/17 02:01 18 136/53 95 12/03/17 01:26 95 12/03/17 01:01 18 132/55 94 12/03/17 00:03 87 L 12/03/17 00:01 98.0 F 16 153/59 92 12/02/17 23:01 16 162/71 94 18 23:00 95 12/02/17 22:06 94 12/02/17 22:01 16 144/56 96 18 21:45 93 18 21:02 18 139/62 92 18 20:19 95 18 20:01 137/57 94 18 20:00 98.9 F 18 95 12/02/17 19:51 64 16 98 18 19:10 69 16 18 19:01 138/60 95 18 18:01 123/78 95 18 17:23 119/67 94 18 16:01 98.8 F 18 140/74 96 18 15:01 125/64 95 18 14:05 123/43 94 18 14:00 78 18 96 18 13:01 130/51 94 18 12:01 17 133/58 96 18 12:00 99.0 F H 18 11:31 69 16 18 11:01 126/57 96 Intake and Output 19/18 07/20/18 12/03/17 21:59 05:59 13:59 Intake Total 380 / 380 Output Total 110 / 110 100 / 100 100 / 100 Balance 270 / 270 -100 / -100 -100 / -100 Intake: Oral 380 / 380 Output: Void Amount 110 / 110 100 / 100 100 / 100 Other: Meal Dinner Percent of Meal Consumed 75% yogurt Feeding Ability Assist with Tray Set Up Stool Size Moderate Moderate Stool Color Brown Brown Stool Consistency Formed Formed # Voids 1 1 1 Weight 181 lb 14.4 oz Medical - DS: Data Labs on day of discharge: Labs from last 24 hours 12/03/17 12/03/17 12/02/17 04:05 04:05 10:15 WBC 6.2 RBC 2.58 L Hgb 9.3 L Hct 27.1 L MCV 105.0 H MCH 35.9 H MCHC 34.2 RDW 19.1 H Plt Count 101 L MPV 12.4 H Gran % 71.8 Lymph % (Auto) 19.3 Gage % (Auto) 4.3 Eos % (Auto) 4.0 Baso % (Auto) 0.6 Gran # 4.5 Lymph # (Auto) 1.2 L Gage # (Auto) 0.3 Eos # (Auto) 0.2 Baso # (Auto) 0 Sodium 135 Potassium 5.0 Chloride 98 Carbon Dioxide 24 Anion Gap 13.0 BUN 48 H Creatinine 6.1 H* GFR Calculation 8 Glucose 81 Calcium 8.8 Urine Color Yellow Urine Appearance Clear Urine pH 8.0 Ur Specific [place] 1.013 Urine Protein 100 A Urine Glucose (UA) 50 A Urine Ketones Neg Urine Occult Blood 0.2 A Urine Nitrate Neg Urine Bilirubin Neg Urine Urobilinogen Neg Ur Leukocyte Esterase Neg Urine RBC 91 H Urine WBC 6 H Ur Squamous Epith Cells < 1 Urine Bacteria 0 Hyaline Casts 1 Urine Mucus Few Ur Culture Indicated? Yes Preliminary micro results at discharge 11/29/17 12:22 Blood Culture - Preliminary Blood 11/29/17 12:03 Blood Culture - Preliminary Blood Medical - DS: A/P - Patient/Caregiver Discharge Instructions Activity: increase activity as tolerated Diet: Renal/Consistent Carbs - Follow up Plan Follow up with: Shen Elias MD [Primary Care Provider] - Disposition: Home, Self-Care Prognosis: Serious Rehab Potential: Fair I certify that the patient requires SNF services: No Overall status at discharge: patient is progressing back to baseline Medical - DS: Qual - VTE Deep Vein Thrombosis/Pulmonary Embolism Present on Admission: No
--- NOTE | 2017-12-03 11:47 | Nephrology Progress Note ---
Subjective Patient information: Note initiated : 12/03/17 at 11:45 am Service Date, if different from initiated Date: [] Patient: Stefan Merritt 77 y/o M admitted on 11/29/17 for Shortness of Breath/ CHF. Chief Complaint: []He is feeling better. Being discharged today. Breathing has been stable. Objective - Vital Signs Vital signs: Vital Signs Temp Pulse Pulse Resp BP Pulse Ox 12/03/17 11:00 97.8 F 74 16 128/50 95 12/03/17 10:01 121/52 96 12/03/17 09:01 129/57 94 12/03/17 07:18 71 18 12/03/17 07:01 17 146/65 95 12/03/17 06:57 99.0 F 12/03/17 06:38 81 15 93 12/03/17 06:01 17 137/50 94 12/03/17 05:31 92 12/03/17 05:01 145/70 97 12/03/17 04:01 98.1 F 16 127/57 94 12/03/17 03:01 137/55 91 12/03/17 02:25 96 12/03/17 02:01 18 136/53 95 12/03/17 01:26 95 12/03/17 01:01 18 132/55 94 12/03/17 00:03 87 L 12/03/17 00:01 98.0 F 16 153/59 92 12/02/17 23:01 16 162/71 94 18 23:00 95 12/02/17 22:06 94 12/02/17 22:01 16 144/56 96 12/02/17 21:45 93 18 21:02 18 139/62 92 18 20:19 95 18 20:01 137/57 94 12/02/17 20:00 98.9 F 18 95 12/02/17 19:51 64 16 98 18 19:10 69 16 18 19:01 138/60 95 18 18:01 123/78 95 18 17:23 119/67 94 12/02/17 16:01 98.8 F 18 140/74 96 12/02/17 15:01 125/64 95 12/02/17 14:05 123/43 94 12/02/17 14:00 78 18 96 12/02/17 13:01 130/51 94 12/02/17 12:01 17 133/58 96 12/02/17 12:00 99.0 F H Intake and Output 12/02/17 12/03/17 12/03/17 21:59 05:59 13:59 Intake Total 380 / 380 Output Total 110 / 110 100 / 100 100 / 100 Balance 270 / 270 -100 / -100 -100 / -100 Intake: Oral 380 / 380 Output: Void Amount 110 / 110 100 / 100 100 / 100 Other: Meal Dinner Percent of Meal Consumed 75% yogurt Feeding Ability Assist with Tray Set Up Stool Size Moderate Moderate Stool Color Brown Brown Stool Consistency Formed Formed # Voids 1 1 1 Weight 181 lb 14.4 oz Intake & Output: Intake & Output 12/02/17 12/03/17 12/03/17 21:59 05:59 13:59 Intake Total 380 / 380 Output Total 110 / 110 100 / 100 100 / 100 Balance 270 / 270 -100 / -100 -100 / -100 Weight 181 lb 14.4 oz Intake: Oral 380 / 380 Output: Void Amount 110 / 110 100 / 100 100 / 100 Other: Meal Dinner Percent of Meal Consumed 75% yogurt Feeding Ability Assist with Tray Set Up Stool Size Moderate Moderate Stool Color Brown Brown Stool Consistency Formed Formed # Voids 1 1 1 - General Appearance General appearance: well-developed, well-nourished EENT: ATNC Neck: no JVD Respiratory: no kyphosis Cardiology: no murmurs Gastrointestinal: normoactive bowel sounds Integumentary: no rash Neurologic: no focal deficit - Lab 12/03/17 04:05 12/03/17 04:05 Most recent lab results Calcium 8.8 mg/dl (8.6-10.4) 12/03/17 04:05 Magnesium 1.9 mg/dL (1.6-2.5) 12/01/17 03:30 Assessment and Plan (1) ESRD (end stage renal disease) on dialysis Status: Acute Comment: 1. Volume overload. He is being dialysed today. Will lower his DW. 2. Anemia. HB stable. 3. Hyperphos. On Tums with meals.
== END 2017-12-03 16:00 | DRG 291 ==
LOC: ED 08:56 → ICU 14:15
PROVIDERS: ADMIT Emergency Medicine; ATTEND Internal Medicine